=== PATIENT | female | born 1950 | race Caucasian/White ===

== ENCOUNTER → 2018-01-19 07:42 | Outpatient (CLI) | payer BC, MEDICARE, SELFPAY ==
[2018-01-19 13:03] LABS: Absolute Lymphocyte Count 1.35 X10^3/ul (0.83-4.51); Basophil# 0.01 X10^3/uL; Basophil% 0.3 % (0-1); Eosinophil# 0.07 X10^3/uL; Eosinophils% 1.9 % (0-5); Hematocrit 39.5 % (37-47); Hemoglobin 12.7 g/dl (12.0-15.0); Lymphocyte # 1.35 X10^3/ul (4.0); Lymphocyte % 37.3 % (19-41); Mean Corp Hgb Conc 32.2 g/gl (32-36); Mean Corpuscular Hgb 30.2 pg (27.0-32.0); Mean Corpuscular Volume 93.8 fL (81-99); Mean Platelet Vol. 8.8 fl (6.2-12.0); Monocyte# 0.21 X10^3/uL; Monocyte% 5.8 % (0-10); Neutrophil # 1.98 X10^3/uL (2.7-7.7); Neutrophil % 54.7 % (47-70); Platelet Count 212 K/mm3 (150-450); RBC Distribution Width CV 12.8 % (11.6-14.6); RBC Distribution Width SD 43.4 fl (35.1-43.9); Red Blood Count 4.21 M/mm3 (4.2-5.4); White Blood Count 3.6 K/mm3 (4.4-11.0)
--- NOTE | 2018-01-19 13:04 | CT_ITS ---
STUDY: CT SOFT TISSUE NECK WITH CONTRAST REASON FOR EXAM: Female, 67 years old. Neoplasm of the oropharynx. RADIATION DOSAGE (If Supplied By Facility): CTDIvol = ( 14.66 ) mGy, DLP = ( 902.39 ) mGycm TECHNIQUE: The patient was scanned in a multi-detector CT scanner. High resolution transaxial imaging was performed following intravenous administration of 100 ml of Isovue 300 contrast material. Sagittal and coronal images were reconstructed. Individualized dose optimization techniques were used for this CT. COMPARISON: Multiple previous studies including CT of the neck 11/26/2016 and 08/04/2017. Also PET scan 05/05/2017. FINDINGS: No significant change. Again seen is only a tiny 6 mm peripherally enhancing, nodule anterior to the right jugular vein, with low density center. No other evidence for mass or adenopathy. Currently normal bilateral parotid glands. Normal bilateral multi skilled operator spaces. Normal bilateral parapharyngeal spaces. Normal bilateral carotid spaces. Normal bilateral sublingual and submandibular glands and spaces. Normal visualized nasopharynx. Normal retropharyngeal space. Normal perivertebral space. Normal visualized bilateral faucial tonsils. The visualized tongue, tongue base and oropharynx are normal. The visualized cervical lymph nodes (levels I-) are within normal size limits, and maintain normal morphology. There is no demonstrated solid or cystic mass lesion. There is no abnormal contrast enhancement. Normal epiglottis, bilateral vallecula and hypopharynx. The pre-epiglottic and paraglottic adipose spaces are normal. Normal visualized bilateral piriform sinuses, aryepiglottic folds, vocal cords, and arytenoid-cricoid articulations. Normal subglottic trachea. Normal bilateral lobes of the thyroid gland. Normal visualized pulmonary apices. Normal visualized paranasal sinuses. Normal visualized cervical spine. CT/Soft Tissue Neck WITH Contrast IMPRESSION: No significant abnormality or change. Persistent 6 mm peripherally enhancing nodule with low density center anterior to the right jugular vein. Electronically Signed: Aly Hwang MD at 9:33 EDT , Service support ,
--- NOTE | 2018-01-19 13:05 | CT_ITS ---
STUDY: CT CHEST WITH CONTRAST REASON FOR EXAM: Female, 67 years old. 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 RADIATION DOSAGE (If Supplied By Facility): CTDIvol = ( 14.66 ) mGy, DLP = ( 902.39 ) mGycm TECHNIQUE: Transaxial imaging was performed following intravenous administration of 100 ml of Isovue 300 contrast material. Coronal and sagittal reformatted images were created. Individualized dose optimization techniques were used for this CT. COMPARISON: 08/04/2017 FINDINGS: This study is limited by streak artifact due to the patient's arms being at her sides. There is stable increased interstitial markings in the right apex which is likely due to post radiation fibrosis/scarring. There are no focal infiltrates or pleural effusions. There are no pulmonary nodules or masses. There is no pneumothorax. The heart and pericardium are within normal limits. There is no thoracic lymphadenopathy. There is no evidence of thoracic aortic aneurysm. Images through the upper abdomen demonstrate no significant abnormality. There are no destructive osseous lesions. There are stable degenerative changes in the spine. CT/Chest WITH Contrast IMPRESSION: Stable increased interstitial markings in the right apex which are likely due to post radiation fibrosis/scarring. Otherwise, clear lungs. No new or suspicious findings. Electronically Signed: Chet Paiz, at 16:18 EDT Tel , Service support ,
[2018-01-19 13:07] LABS: POSITIVE COUNT NO; POSITIVE DIFFERENTIAL NO; POSITIVE MORPHOLOGY NO
[2018-01-19 13:22] LABS: ALB/GLOB Ratio 1.2 RATIO (0.9-2.4); AST(SGOT) 27 U/L (15-37); Alanine Aminotransfer ALT/SGPT 39 U/L (13-56); Albumin, Serum 3.7 g/dL (3.2-5.0); Alkaline Phosphatase 85 U/L (45-117); Anion Gap 6 (5-15); BUN 13 mg/dL (7-18); BUN/Creat Ratio 14.3 RATIO (10-20); Calcium,Total 8.3 mg/dL (8.5-10.1); Chloride 104 mmol/L (98-107); Creatinine, Serum 0.91 mg/dL (0.55-1.02); EST Glomerular Filtration Rate 65 mL/min (>60); Est Glom Filt Rate - Afr Amer 79 mL/min (>60); Globulin 3.1 g/dL (2.2-4.2); Glucose 135 mg/dL (74-106); Potassium 4.1 mmol/L (3.5-5.1); Protein, Total 6.8 g/dL (6.4-8.2); Sodium Level 139 mmol/L (136-145); Thyroid Stim Hormone (TSH) 1.66 uIU/mL (0.358-3.74)
--- NOTE | 2018-08-04 13:55 | CT_ITS ---
STUDY: CT CHEST/THORAX WITH CONTRAST REASON FOR EXAM: Female, 68 years old. Spot on lung, history of oral cancer. RADIATION DOSAGE (If Supplied By Facility): CTDIvol = ( 16.04 ) mGy, DLP = ( 430.82 ) mGycm TECHNIQUE: Transaxial imaging was performed following intravenous administration of 100 ml of Isovue 300 contrast material. Multiplanar coronal and sagittal images were reformatted. Individualized dose optimization techniques were used for this CT. COMPARISON: CT chest/thorax January 19, 2018. FINDINGS: Minor subsegmental stranding/scarring in the anteromedial right apex is unchanged. No new pulmonary infiltrate or mass. There is no demonstrated pleural abnormality. Normal heart size and pericardium. There is mild eccentric calcification along the margin of the left ventricular outflow leading into the aortic valve. Normal mediastinum. Normal hilar regions. Normal enhanced pulmonary arteries. Normal aorta arch and descending thoracic aorta. There are multi-level degenerative changes of the thoracic spine. There is a 15 degree dextroscoliosis centered at T7. Well-corticated focal invaginations of the opposing T10-11 vertebral endplates consistent with benign Schmorl's node(s). There is no demonstrated abnormality of the visualized upper abdomen. CT/Chest WITH Contrast IMPRESSION: Stable minor subsegmental stranding/scarring in the anteromedial right lung apex. No new suspicious finding. Electronically Signed: Howard Montes MD at 17:37 EDT , Service support ,
--- NOTE | 2018-08-04 13:56 | CT_ITS ---
STUDY: CT SOFT TISSUE NECK WITH CONTRAST REASON FOR EXAM: Female, 68 years old. Oral cancer. RADIATION DOSAGE (If Supplied By Facility): CTDIvol = ( 14.85 ) mGy, DLP = ( 396.79 ) mGycm TECHNIQUE: The patient was scanned in a multi-detector CT scanner. High resolution transaxial imaging was performed following intravenous administration of 100 ml of Isovue 300 contrast material. Sagittal and coronal images were reconstructed. Individualized dose optimization techniques were used for this CT. COMPARISON: CT soft tissues of the neck January 19, 2018. FINDINGS: Normal bilateral parotid glands. Normal bilateral striker off spaces. Normal bilateral parapharyngeal spaces. Normal bilateral carotid spaces. Normal bilateral sublingual and submandibular glands and spaces. Normal visualized nasopharynx. Normal retropharyngeal space. Normal perivertebral space. Normal visualized bilateral faucial tonsils. The visualized tongue, tongue base and oropharynx are normal. The visualized cervical lymph nodes (levels I-) are within normal size limits, and maintain normal morphology. 5 mm rim-enhancing rounded lesion anterior to the right jugular vein (series 3 image 42, series 605 image 42) is unchanged. There is no abnormal contrast enhancement. Normal epiglottis, bilateral vallecula and hypopharynx. The pre-epiglottic and paraglottic adipose spaces are normal. Normal visualized bilateral piriform sinuses, aryepiglottic folds, vocal cords, and arytenoid-cricoid articulations. Normal subglottic trachea. Stable 3 mm rounded low density in the upper left lobe of the thyroid gland. There is stable subsegmental stranding/scarring in the anterior right upper lobe. Stable smoothly rounded 1.55 x 1.6 x 1.5 cm low density consistent with mucous inclusion cyst in the inferior left maxillary sinus. Mucoperiosteal thickening in the posterior right sphenoid sinus is mildly improved. There is stable multilevel degenerative changes of the cervical spine. CT/Soft Tissue Neck WITH Contrast IMPRESSION: Stable enhanced CT examination of the soft tissues of the neck since January 19, 2018, as noted. Electronically Signed: Howard Montes MD at 17:48 EDT , Service support ,
== END ==
PROVIDERS: Family Provider Family Medicine; PCP Family Medicine; Referring Provider Internal Medicine Medical Oncology; Visit Provider Internal Medicine Medical Oncology
DX: C10.9 Malignant neoplasm of oropharynx, unspecified (principal)
CPT/HCPCS: 36415; 70491; 71260; 80053; 84443; 85025; Q9967

== ENCOUNTER → 2018-03-12 12:26 | Outpatient (CLI) | payer BC, OTHER, MEDICARE, SELFPAY ==
--- NOTE | 2018-03-12 12:28 | BI_ITS ---
MAMMOGRAPHY - BILATERAL SCREENING REASON FOR EXAM: Female, 68 years old. Routine annual screening examination. PERTINENT HISTORY: Aunt with breast cancer. TECHNIQUE: Digital bilateral breast jerod (3D mammographic acquisition) in the CC and MLO projections. 2-D mediolateral oblique (MLO) and craniocaudad (CC) views of both breasts were obtained. CAD: Full Field Digital Mammography with Computer Added Detection was performed. COMPARISON: Comparison is made with prior study dated November 22, 2016 and June 20, 2014. FINDINGS: Breast Composition: The breasts are heterogeneously dense, which may obscure small masses. There are no dominant masses or suspicious calcifications. No other significant abnormalities are identified. There has been no significant change since the prior study. BI/SCREENING MAMM (CAD), BILAT IMPRESSION: Stable bilateral screening mammogram. Yearly follow-up mammogram recommended. (A) ASSESSMENT CATEGORY: BIRADS Category 1: Negative. A letter regarding these results will be sent to the patient by the facility within 30 days. Approximately 10% of breast cancers are not detected by mammography. A normal mammogram should not delay biopsy of a clinically suspicious abnormality. [id number] Electronically Signed: Paulino Wright MD at 13:52 EDT Tel [phone], Service support ,
== END ==
PROVIDERS: Family Provider Family Medicine; PCP Family Medicine; Visit Provider Obstetrics & Gynecology
DX: Z12.31 Encounter for screening mammogram for malignant neoplasm of breast (principal)
CPT/HCPCS: 77063; 77067

== ENCOUNTER → 2018-08-04 14:00 | Outpatient (CLI) | payer BC, MEDICARE, SELFPAY | PROVIDERS: Family Provider Family Medicine; PCP Family Medicine; Referring Provider Internal Medicine Medical Oncology; Visit Provider Internal Medicine Medical Oncology | DX: Z85.819 Personal history of malignant neoplasm of unspecified site of lip, oral cavity, and pharynx (principal) ==

== ENCOUNTER → 2019-02-16 14:34 | Outpatient (CLI) | payer BC, MEDICARE, SELFPAY ==
[2018-10-05 13:11] VITALS: BMI 25.4
[2019-02-01 12:59] VITALS: BMI 26.4
== END ==
PROVIDERS: Family Provider Family Medicine; PCP Family Medicine; Referring Provider Obstetrics & Gynecology; Visit Provider Obstetrics & Gynecology
DX: Z12.31 Encounter for screening mammogram for malignant neoplasm of breast (principal)

== ENCOUNTER → 2019-04-06 | Outpatient (CLI) | payer BC, MEDICARE, SELFPAY ==
[2019-02-01 12:59] VITALS: BMI 26.4
--- NOTE | 2019-04-06 12:30 | BI_ITS ---
MAMMOGRAPHY - BILATERAL SCREENING REASON FOR EXAM: Female, 69 years old. Routine annual screening examination. PERTINENT HISTORY: Aunt with breast cancer. TECHNIQUE: Digital bilateral breast wiliam (3D mammographic acquisition) in the CC and MLO projections. 2-D mediolateral oblique (MLO) and craniocaudad (CC) views of both breasts were obtained. CAD: Full Field Digital Mammography with Computer Added Detection was performed. COMPARISON: Comparison is made with prior study March 12, 2018 and November 30, 2016. FINDINGS: Breast Composition: The breasts are heterogeneously dense, which may obscure small masses. There are no dominant masses or suspicious calcifications. No other significant abnormalities are identified. There has been no significant change since the prior study. BI/SCREEN MAMM (CAD) W/WILIAM BILAT IMPRESSION: Stable bilateral screening mammogram. Yearly follow-up mammogram recommended. (A) ASSESSMENT CATEGORY: BIRADS Category 1: Negative. A letter regarding these results will be sent to the patient by the facility within 30 days. Approximately 10% of breast cancers are not detected by mammography. A normal mammogram should not delay biopsy of a clinically suspicious abnormality. [id number] Electronically Signed: Paulino Wright, at 14:10 EDT , Service support ,
== END | disposition home or self-care (01) ==
PROVIDERS: Family Provider Family Medicine; PCP Family Medicine; Referring Provider Obstetrics & Gynecology; Visit Provider Obstetrics & Gynecology
DX: Z12.31 Encounter for screening mammogram for malignant neoplasm of breast (principal)
CPT/HCPCS: 77063; 77067

== ENCOUNTER → 2019-08-26 14:44 | Outpatient (CLI) | payer BC, MEDICARE, SELFPAY ==
[2019-04-29 12:19] VITALS: BMI 26.4
--- NOTE | 2019-08-26 14:46 | CT_ITS ---
STUDY: CT SOFT TISSUE NECK WITH CONTRAST REASON FOR EXAM: Female, 69 years old. Follow-up oropharyngeal cancer. RADIATION DOSAGE (If Supplied By Facility): CTDIvol = ( 13.04 ) mGy, DLP = ( 886.34 ) mGycm TECHNIQUE: The patient was scanned in a multi-detector CT scanner. High resolution transaxial imaging was performed following intravenous administration of IV Isovue 370 100. Sagittal and coronal images were reconstructed. Individualized dose optimization techniques were used for this CT. COMPARISON: 08/04/2018. FINDINGS: Atrophy of the bilateral parotid glands glands, otherwise unremarkable bilateral parotid glands. Normal bilateral supervisor poultry hatchery spaces. Normal bilateral parapharyngeal spaces. Normal bilateral carotid spaces. Normal bilateral sublingual and submandibular glands and spaces. Normal visualized nasopharynx. Normal retropharyngeal space. Normal perivertebral space. Normal visualized bilateral faucial tonsils. The visualized tongue, tongue base and oropharynx are normal. The visualized cervical lymph nodes (levels I-) are within normal size limits, and maintain normal morphology. There is no demonstrated solid or cystic mass lesion. There is no abnormal contrast enhancement. Normal epiglottis, bilateral vallecula and hypopharynx. The pre-epiglottic and paraglottic adipose spaces are normal. There is mild fullness of the posterior aspect of the larynx, stable in the interval. Visualized bilateral piriform sinuses, aryepiglottic folds, vocal cords, and arytenoid-cricoid articulations. Normal subglottic trachea. Normal bilateral lobes of the thyroid gland. Normal visualized pulmonary apices. There is mucosal thickening versus mucus retention cyst of the left maxillary sinus. Remainder of the paranasal sinuses are clear. There are diffuse osteopenic changes with multilevel degenerative disease of the spine. There is minimal anterolisthesis of C7 on T1. This is stable. CT/Soft Tissue Neck WITH Contrast IMPRESSION: No distinct mass or lymphadenopathy seen on current exam, stable study in the interval. Electronically Signed: Olya Mohamud MD at 6:40 EDT , Service support ,
--- NOTE | 2019-08-26 14:46 | CT_ITS ---
STUDY: CT CHEST WITH CONTRAST REASON FOR EXAM: Female, 69 years old. History of oropharyngeal cancer, status post chemotherapy and radiation therapy. RADIATION DOSAGE (If Supplied By Facility): CTDIvol = ( 13.04 ) mGy, DLP = ( 886.34 ) mGycm TECHNIQUE: Transaxial imaging was performed following intravenous administration of IV Isovue 370 100. Individualized dose optimization techniques were used for this CT. COMPARISON: Previous study of August 04, 2018 FINDINGS: There is wispy fibrosis of the medial right upper lobe which may be secondary to post radiation change. There is no demonstrated pleural abnormality. Normal heart and pericardium. Normal mediastinum. Normal hilar regions. Normal enhanced pulmonary arteries. Normal aorta arch and descending thoracic aorta. There are diffuse degenerative changes of the visualized thoracolumbar spine. There is old severe compression deformity of T12 with retropulsion of a fracture fragment into the anterior spinal canal. This is new however from the prior study of August 04, 2018. There is a large hiatal hernia. This is also new in the interval. Status post cholecystectomy changes are noted. CT/Chest WITH Contrast IMPRESSION: 1. Wispy fibrosis of the medial right upper lobe which may be secondary to post radiation change. 2. There are diffuse degenerative changes of the visualized thoracolumbar spine. There is old severe compression deformity of T12 with retropulsion of a fracture fragment into the anterior spinal canal. This was not present however on the prior study of August 04, 2018. 3. Large hiatal hernia. This is also new in the interval. Electronically Signed: Adonay Schwartz MD at 17:06 EDT , Service support ,
[2019-08-26 15:01] LABS: CREATININE FINGERSTICK 0.9 mg/dL (0.55-1.02); EGFR FINGERSTICK > 60.0000 mL/min (>60)
== END ==
PROVIDERS: Family Provider Family Medicine; PCP Family Medicine; Referring Provider Internal Medicine Medical Oncology; Visit Provider Internal Medicine Medical Oncology
DX: C10.9 Malignant neoplasm of oropharynx, unspecified (principal)
CPT/HCPCS: 70491; 71260; Q9967

== ENCOUNTER → 2019-09-06 12:26 | Outpatient (CLI) | payer BC, MEDICARE, SELFPAY ==
[2019-08-30 14:36] VITALS: BMI 25.1
--- NOTE | 2019-09-06 12:28 | MRI_ITS ---
STUDY: MRI LUMBAR SPINE WITH AND WITHOUT CONTRAST REASON FOR EXAM: Female, 69 years old. Fracture T12 TECHNIQUE: Standardized fat and water weighted pulse sequences were obtained in the sagittal and axial planes. IV Dotarem 13 was administered for the contrast portion of the examination. COMPARISON: May 21, 2010. Lumbar spine FINDINGS: 25% Compression fracture T12 without retropulsion. There is T2 lengthening along the superior endplate. T12-L1: Normal endplates. Normal disc height, hydration and morphology. Normal bilateral facet joints. Normal central canal and bilateral lateral recesses. Normal bilateral intervertebral neural foramina. Normal lumbar lordosis. Moderate levoconvex scoliosis. Normal conus medullaris that terminates at the L1 level. L1-2: Normal endplates. Circumferential disc marginal osteophyte. Decreased disc height, hydration and morphology. Normal bilateral facet joints. Normal central canal and bilateral lateral recesses. Normal bilateral intervertebral neural foramina. L2-3: Normal endplates. Circumferential disc marginal osteophyte. Decreased disc height, hydration and morphology. Normal bilateral facet joints. Normal central canal and bilateral lateral recesses. Narrowed bilateral intervertebral neural foramina. L3-4: Normal endplates. Normal disc height, hydration and morphology. Normal bilateral facet joints. Normal central canal and bilateral lateral recesses. Narrowed bilateral intervertebral neural foramina. L4-5: Hypertrophic facet disease. Moderate central and lateral trefoil type spinal stenosis. L5-S1: Normal endplates. Normal disc height, hydration and morphology. Hypertrophic bilateral facet joints. Normal central canal and bilateral lateral recesses. Normal bilateral intervertebral neural foramina. Normal visualized sacral ala. Normal visualized paraspinous soft tissue structures. IMPRESSION: Mild compression fracture superior endplate T12 with bone marrow edema. Scoliosis. Multilevel spinal stenosis as noted above. Electronically Signed: Jeffy Carney MD at 17:20 EST , Service support , MRI/Spine Lumbar W/WO Contrast
--- NOTE | 2019-09-06 12:28 | MRI_ITS ---
STUDY: MRI THORACIC SPINE WITH AND WITHOUT CONTRAST REASON FOR EXAM: Female, 69 years old. Compression T12. History of cancer of the tonsil. TECHNIQUE: IV Dotarem 13 was administered for the contrast portion of the examination. COMPARISON: None. FINDINGS: Normal kyphosis of the thoracic spine. Moderate scoliosis. T1-2, T2-3, T3-4, T4-5, T5-6, T6-7, T7-8, T8-9, T9-10, T10-11, T11-12: Normal endplates. Normal disc hydration, heights and morphology of the corresponding intervertebral discs. Normal central canal and intervertebral neural foramina at the corresponding levels. Mild 20% compression fracture superior endplate T12 with slight retropulsion. Mild bone marrow edema along the superior endplate. Moderate central and lateral trefoil type spinal stenosis at this level. Nerve sheath cyst on the left at T10. Normal visualized thoracic cord. Normal conus medullaris that terminates at the L1.. The soft tissue structures are unremarkable. There is no enhancing abnormality. MRI/Spine Thoracic W/WO Contrast IMPRESSION: Mild acute or subacute compression fracture superior endplate T12 with retropulsion and moderate spinal stenosis. Moderate scoliosis. Electronically Signed: Jeffy Carney MD at 17:34 EST , Service support ,
== END ==
PROVIDERS: Family Provider Family Medicine; PCP Family Medicine; Referring Provider Internal Medicine Medical Oncology; Visit Provider Internal Medicine Medical Oncology
DX: S22.080A Wedge compression fracture of T11-T12 vertebra, initial encounter for closed fracture (principal); C09.0 Malignant neoplasm of tonsillar fossa; M54.6 Pain in thoracic spine; M54.9 Dorsalgia, unspecified; M54.2 Cervicalgia; G89.29 Other chronic pain
CPT/HCPCS: 72157; 72158

== ENCOUNTER → 2019-09-08 12:40 | Outpatient (CLI) | payer BC, MEDICARE, SELFPAY ==
[2019-08-30 14:36] VITALS: BMI 25.1
--- NOTE | 2019-09-08 12:59 | RAD_ITS ---
STUDY: X-RAY - LUMBAR SPINE REASON FOR EXAM: Female, 69 years old. Low back pain TECHNIQUE: 2 view(s) of the lumbar spine were obtained. COMPARISON: Prior study of 04/15/2016 FINDINGS: Normal lumbar lordosis. There is a moderately severe thoracolumbar levoscoliosis with rotatory component there is minimal grade 1 anterolisthesis of L4 relative to L5. There is generalized demineralization of the vertebral bodies. There is multi-level degenerative disc disease with multi-level disc space narrowing. The soft tissue structures are unremarkable. RAD/Lumbar Spine 2 or 3 Views IMPRESSION: Moderately severe thoracolumbar levoscoliosis with rotatory component. Minimal grade 1 anterolisthesis of L4 relative to L5. Generalized osteopenia. Findings are similar to the previous study. Electronically Signed: Adonay Schwartz MD at 19:15 EST , Service support ,
== END ==
PROVIDERS: Family Provider Family Medicine; PCP Family Medicine; Referring Provider Anesthesiology Pain Medicine; Visit Provider Anesthesiology Pain Medicine
DX: M54.9 Dorsalgia, unspecified (principal)
CPT/HCPCS: 72100

== ENCOUNTER → 2019-09-09 10:23 | Outpatient (CLI) | payer BC, MEDICARE, SELFPAY ==
[2019-08-30 14:36] VITALS: BMI 25.1
--- NOTE | 2019-09-09 10:25 | NM_ITS ---
CLINICAL: 69-year-old female with history of head and neck carcinoma with current complaint of low back discomfort was radiographically depicted 12th thoracic vertebral compression fracture. WHOLE BODY 99m Tc MDP RADIONUCLIDE BONE SCINTIGRAPHY COMPARISON: MRI of the thoracic and lumbar spine reports 09/06/2019, plain film radiograph report lumbar spine 09/08/2019 FINDINGS: Following the intravenous administration of 27.5 mCi of 99m Tc MDP, whole body bone images reveal: 1. Relatively intense increased radiopharmaceutical concentration is demonstrated in the 12th thoracic vertebra diffusely. 2. Increased tracer concentration is defined in the sternoclavicular compartment of the right shoulder, acromioclavicular compartments of both shoulders, first-third and fifth lumbar vertebra, left elbow, bilateral wrist articulations, the left knee, right ankle, right forefoot. 3. The remaining skeletal structures are scintigraphically unremarkable with normal-appearing renal images and urinary bladder activity identified. Unenhanced uptake is noted in the bilateral mandible and maxilla, inter-orbital of the skull commensurate with periostitis. Facilitated tracer concentration is noted in the femoral components of the presumably asymptomatic bilateral hip arthroplasties most consistent with normal postsurgical change. NM/Bone Scan Whole Body IMPRESSION: 1. The increased radiopharmaceutical concentration identified in the 12th thoracic vertebra consistent with trauma-compression fracture. In patients > 65 years of age, increased radiopharmaceutical concentration on bone scintigraphy in uncomplicated documented fracture, may take > 18 months for complete resolution. (Aurelio et al, Seminars of Nuclear Medicine, 13:104, 1983). 2. Degenerative arthritis appears expressed in the lumbar spine, left elbow, both shoulder and wrist articulations, the left knee, right ankle and right forefoot. Plain film radiography may be of benefit in further evaluation of the sternoclavicular compartment of the right shoulder secondary to the intensity of uptake. 3. There is no definitive scintigraphic evidence of diffuse axial skeletal metastatic disease on the current examination. Electronically Signed: Maximiliano Mullins DO at 10:13 EST Tel , Service support ,
== END ==
PROVIDERS: Family Provider Family Medicine; PCP Family Medicine; Referring Provider Internal Medicine Medical Oncology; Visit Provider Internal Medicine Medical Oncology
DX: C09.0 Malignant neoplasm of tonsillar fossa (principal); S22.080A Wedge compression fracture of T11-T12 vertebra, initial encounter for closed fracture
CPT/HCPCS: 78306

== ENCOUNTER → 2019-10-07 08:45 | Outpatient (CLI) | payer BC, MEDICARE, SELFPAY ==
[2019-09-15 10:53] VITALS: BMI 25.3
--- NOTE | 2019-10-07 18:41 | BON_PTH ---
PATIENT: MALVIN SIMON LOC: [facility] U#:[id number] AGE/SX: 75/F ROOM: RE10/07/[address]: Dr. Dae Pang MD : 1950 BED: DIS: SPEC #: [id number] RECD: 10/07/19 19:26 STATUS: CHAR ASHIA #: [id number] EVA: 10/07/19 18:[address]: Dae Pang DEPT: SURGICAL PATHOLOGY RECD BY: Eddie Farley ENTERED: 10/08/19 09:42 SP TYPE: Bone OTHR DR: Dr. Nikki Birch DO Tissues: Vertebra, NOS Procedures: Decalcification bone/plaque Surgery Specimen Level IV HEADER OPERATION: Kyphoplasty, T12 with biopsy PRE-OP DIAGNOSIS: Compression fracture, tumor tonsillar TISSUE SUBMITTED: T12 vertebral MICROSCOPIC DIAGNOSIS T12 vertebral body, kyphoplasty: A piece of blood clot, negative for malignancy. See Comment. SJ:shirley 10/11/19 COMMENT The specimen also shows hematopoietic marrow with trilineage hematopoiesis. MICROSCOPIC DESCRIPTION Slides are reviewed. GROSS DESCRIPTION Received in fixative is one container labeled with the patient's name and designated T12 vertebral body. The specimen consists of reddish-carrera material aggregating to 1 x 0.2 x less than 0.1 cm. The specimen is submitted in its entirety in one cassette. No distinct bony tissue is identified. AM:shirley 10/08/19 TC: 5 CPT: 06823
== END ==
PROVIDERS: Family Provider Family Medicine; PCP Family Medicine; Referring Provider Anesthesiology Pain Medicine; Visit Provider Anesthesiology Pain Medicine
DX: S22.089A Unspecified fracture of T11-T12 vertebra, initial encounter for closed fracture (principal)
CPT/HCPCS: 88305; 88311

== ENCOUNTER → 2019-12-05 | Outpatient (CLI) | payer BC, MEDICARE, SELFPAY ==
[2019-12-05 13:38] VITALS: BMI 25.3
[2019-12-05 14:12] LABS: Mucous, Urine 0 SEEN /hpf (<or=2+); Squamous Epithelial Cells - UA 0 SEEN /hpf (5-10)
[2019-12-05 14:23] LABS: Color, Urine Yellow (Yellow); Glucose, Dipstick Normal (Normal); Ketone-Dipstick Negative (Negative); Leukocyte Esterase-Dipstick 500 /ul (Negative); Nitrite-Dipstick Negative (Negative); Occult Blood-Urine 150 /ul (Negative); Protein-Dipstick 100 mg/dl (Negative); Specific Gravity, Urine 1.015 (1.002-1.030); Urine Bilirubin Dipstick Negative (Negative); Urine Clarity Cloudy (Clear); Urine Urobilinogen 1 mg/dl (Normal)
[2019-12-05 14:36] LABS: Bacteria 2+ /hpf (None Seen); Red Blood Cells-Urine 5-10 SEEN /hpf (0-5); White Blood Cells >100 SEEN /hpf (0-5)
== END | disposition home or self-care (01) ==
PROVIDERS: PCP Family Medicine; Referring Provider Physician Assistant Medical; Visit Provider Physician Assistant Medical
DX: R30.0 Dysuria (principal)
CPT/HCPCS: 81001; 87077; 87086; 87088; 87186

== ENCOUNTER → 2020-01-02 | Outpatient (CLI) | payer BC, MEDICARE, SELFPAY ==
[2020-01-02 10:43] VITALS: BMI 25.3
[2020-01-03 12:19] LABS: Mucous, Urine 0 SEEN /hpf (<or=2+); Red Blood Cells-Urine 0 SEEN /hpf (0-5)
[2020-01-03 12:57] LABS: Color, Urine Yellow (Yellow); Glucose, Dipstick Normal (Normal); Ketone-Dipstick Negative (Negative); Leukocyte Esterase-Dipstick 25 /ul (Negative); Nitrite-Dipstick Positive (Negative); Occult Blood-Urine Negative /ul (Negative); Protein-Dipstick Negative (Negative); Urine Clarity Sl. Cloudy (Clear); Urine Urobilinogen 4 mg/dl (Normal)
[2020-01-03 13:03] LABS: Urine Bilirubin Dipstick 1 mg/dL (Negative)
[2020-01-03 13:13] LABS: Bacteria RARE /hpf (None Seen); Hyaline Cast 0-5 SEEN /lpf (0-5); Squamous Epithelial Cells - UA 0-5 SEEN /hpf (5-10); White Blood Cells 0-5 SEEN /hpf (0-5)
== END | disposition home or self-care (01) ==
LOC: LABSPEC 01-03 11:41
PROVIDERS: PCP Family Medicine; Referring Provider Physician Assistant Medical; Visit Provider Physician Assistant Medical
DX: M54.5 Low back pain (principal)
CPT/HCPCS: 81001; 87086

== ENCOUNTER → 2020-10-24 | Outpatient (CLI) | payer BC, MEDICARE, SELFPAY ==
[2020-10-24 14:44] VITALS: BMI 27.3
== END | disposition home or self-care (01) ==
LOC: LABSPEC 18:04
PROVIDERS: PCP Family Medicine; Visit Provider Physician Assistant Surgical
DX: U07.1 COVID-19 (principal)
CPT/HCPCS: 87635; U0003

== ENCOUNTER → 2021-03-26 13:27 | Outpatient (CLI) | payer BC, MEDICARE, SELFPAY ==
[2021-03-07 12:34] VITALS: BMI 27.3
--- NOTE | 2021-03-26 13:30 | BI_ITS ---
MAMMOGRAPHY - BILATERAL SCREENING REASON FOR EXAM: Female, 71 years old. Routine annual screening examination. PERTINENT HISTORY: Aunt with breast cancer. TECHNIQUE: Digital bilateral breast wiliam (3D mammographic acquisition) in the CC and MLO projections. 2-D mediolateral oblique (MLO) and craniocaudad (CC) views of both breasts were obtained. CAD: Full Field Digital Mammography with Computer Added Detection was performed. COMPARISON: Comparison is made with prior study dated 04/06/2019 and 03/12/2018. FINDINGS: Breast Composition: The breasts are heterogeneously dense, which may obscure small masses. There are no dominant masses or suspicious calcifications. No other significant abnormalities are identified. There has been no significant change since the prior study. BI/SCRN MAMM (CAD)W/WILIAM BILAT IMPRESSION: Stable bilateral screening mammogram. Yearly follow-up mammogram recommended. (A) ASSESSMENT CATEGORY: BIRADS Category 1: Negative. A letter regarding these results will be sent to the patient by the facility within 30 days. Approximately 10% of breast cancers are not detected by mammography. A normal mammogram should not delay biopsy of a clinically suspicious abnormality. [id number] Electronically Signed: Paulino Wright MD at 14:15 EDT , Service support ,
== END ==
PROVIDERS: PCP Family Medicine; Referring Provider Internal Medicine Medical Oncology; Visit Provider Internal Medicine Medical Oncology
DX: Z12.31 Encounter for screening mammogram for malignant neoplasm of breast (principal)
CPT/HCPCS: 77063; 77067

== ENCOUNTER → 2021-08-16 15:34 | Outpatient (CLI) | payer BC, MEDICARE, SELFPAY ==
--- NOTE | 2021-08-16 15:44 | BD_ITS ---
STUDY: DUAL ENERGY X-RAY ABSORPTIOMETRY / DXA REASON FOR EXAM: Female, 71 years old. 627.8Menopausal postmenopausalBONE DENSITY REASON FOR EXAM TECHNIQUE: Bone Mineral Density (BMD) measurements of lumbar spine and left forearm were obtained. The patient is status post bilateral hip replacements. COMPARISON: None. FINDINGS: Lumbar Spine (L1-L4): g/cm2 (0.909) / T-score (-1.3) / Z-score (1.0) Findings are suggestive of osteopenia with a low fracture risk. Left Forearm: g/cm2 (0.444) / T-score (-2.5) / Z-score (-0.2) BD/Dexa Bone Density Study IMPRESSION: The patient is considered osteopenic as outlined below according to World Yevgeniy Organization (WHO) criteria with a high fracture risk. Reference Information: The T-score is the number of standard deviations above or below the standard which is normal for young adults at their peak bone mineral density. The World Health Organization (WHO) interprets the T-scores as follows: Above -1 Normal bone density Between -1 and -2.5 Osteopenia Equal to / or below -2.5 Osteoporosis As a practical clinical guideline, osteopenia may be graded as follows: Mild -1 through -1.5 Moderate -1.6 through -2.0 Severe -2.1 through -2.4 The Z-score is the number of standard deviations above or below age-matched controls. A Z-score of less than -1.5 would be considered abnormal. References: 1. NIH Osteoporosis and Related Bone Diseases www osteo.org 2. International Society for Clinical Densitometry www iscd.org 3. National Osteoporosis Foundation www nof.org Electronically Signed: Paulino Wright MD at 9:54 EDT , Service support ,
== END ==
PROVIDERS: PCP Family Medicine; Referring Provider Nurse Practitioner Family; Visit Provider Nurse Practitioner Family
DX: Z78.0 Asymptomatic menopausal state (principal)
CPT/HCPCS: 77080

== ENCOUNTER 2021-12-30 15:03 | Outpatient (CLI) | payer BC, MEDICARE, SELFPAY ==
[2021-12-30 15:06] LABS: Bacteria 0 SEEN /hpf (None Seen); Mucous, Urine 0 SEEN /hpf (<or=2+)
[2021-12-30 15:20] LABS: Color, Urine Yellow (Yellow); Glucose, Dipstick Normal (Normal); Ketone-Dipstick Negative (Negative); Leukocyte Esterase-Dipstick 500 /ul (Negative); Nitrite-Dipstick Negative (Negative); Occult Blood-Urine 10 /ul (Negative); Protein-Dipstick 30 mg/dl (Negative); Specific Gravity, Urine 1.015 (1.002-1.030); Urine Bilirubin Dipstick Negative (Negative); Urine Clarity Cloudy (Clear); Urine Urobilinogen Normal (Normal)
[2021-12-30 15:40] LABS: White Blood Cells >100 SEEN /hpf (0-5)
[2021-12-30 15:41] LABS: Red Blood Cells-Urine 0-5 SEEN /hpf (0-5); Renal Epithelial Cells 0-5 SEEN /hpf (0-5); Squamous Epithelial Cells - UA 0-5 SEEN /hpf (5-10); Transitional Epithelial - Ur 0-5 SEEN /hpf (0-5)
== END 2021-12-30 23:59 | disposition home or self-care (01) ==
PROVIDERS: PCP Family Medicine; Visit Provider Physician Assistant
DX: N39.0 Urinary tract infection, site not specified (principal)
CPT/HCPCS: 81001; 87077; 87086; 87088; 87186

== ENCOUNTER → 2022-04-19 | Outpatient (CLI) | payer MEDICARE, SELFPAY ==
--- NOTE | 2022-04-19 11:02 | ART_ITS ---
Reason For Study: PVD Procedure A bilateral lower extremity continuous wave Doppler with analog waveform analysis,segmental pressures,and ankle brachial indexes with exercise. Pt walked on treadmill for 2 minutes at 1.5 MPH and a 5% grade. No complaints of pain, stopped due to tieredness. Left Segmental Pressures Left brachial= 124mmHg. Left posterior tibial artery = 138mmHg. Left dorsalis pedis artery = 130mmHg. Left digit = 99 mmHg. The left dorsalis pedis waveforms are triphasic. The left posterior tibial artery waveforms are triphasic. Right Segmental Pressures Right brachial= 125mmHg. Right posterior tibial artery = 149mmHg. Right dorsalis pedis artery = 134mmHg. Right digit = 78 mmHg. The right dorsalis pedis waveforms are triphasic. The right posterior tibial artery waveforms are triphasic. Indices The right ankle brachial index by the dorsalis pedis is 1.07. The right ankle brachial index by the posterior tibial artery is 1.19. The right digital-brachial index is 0.62. The right post exercise ankle brachial index is 1.25. The left ankle brachial index by the dorsalis pedis is 1.04. The left ankle brachial index by the posterior tibial artery is 1.10. The left digital-brachial index is 0.79. The left post exercise ankle brachial index is 1.19. VL/Lower Ext Art Exam w/ Exercise Interpretation Summary Triphasic Doppler waveforms are noted at ankle level bilaterally. Pulse-volume recordings appear slightly diminished at digital level bilaterally, but satisfactory at all other levels bilaterally. Resting ankle-brachial indices are normal bilaterally. The right digital-brachi al index is mildly diminished. The left digital-brachial index is normal. Following a period of ex ercise, ankle pressures augmented bilaterally, a normal physiological response. Arterial flow appears normal at ankle level bilaterally, and at digital level o n the left. There is evidence of mild arterial occlusive disease at digital level on the right. Ordering Physician: Cruzito Diaz Referring Physician: Nikki Birch Performed By: Beena Phillips RVT
== END | disposition home or self-care (01) ==
PROVIDERS: PCP Family Medicine; Referring Provider Podiatrist; Visit Provider Podiatrist
DX: I73.9 Peripheral vascular disease, unspecified (principal)
CPT/HCPCS: 93924

== ENCOUNTER → 2022-06-08 | Outpatient (CLI) | payer MEDICARE, SELFPAY ==
--- NOTE | 2022-06-08 11:20 | US_ITS ---
STUDY: RENAL ULTRASOUND - COMPLETE REASON FOR EXAM: Female, 72 years old. UTI TECHNIQUE: Ultrasound evaluation of the kidneys was performed with real-time and static ruffin-scale imaging. COMPARISON: None. FINDINGS: RIGHT KIDNEY: Normal location of the right kidney, which is normal in size. The right kidney measures 9.3 x 5.4 cm. There is a normal cortex of the right kidney. The renal cortex measures 1.2 cm. There is no right renal mass or cyst. There are no right renal calculi. There is no right hydronephrosis. DISTAL RIGHT URETER: There is non-visualization of the distal right ureter. There is no demonstrated right ureterovesical junction calculus. There is a visualized right ureteral jet. LEFT KIDNEY: Normal location of the left kidney, which is normal in size. The left kidney measures 8.8 x 4.3 cm. There is a normal cortex of the left kidney. The renal cortex measures 1.5 cm. There is no left renal mass or cyst. There are no left renal calculi. There is an extra-renal pelvis of the left kidney. There is no distention of the renal calyces. DISTAL LEFT URETER: There is non-visualization of the distal left ureter. There is no demonstrated left ureterovesical junction calculus. There is a visualized left ureteral jet. AORTA: There is obscuration of the abdominal aorta by overlying bowel gas I.V.C.: The IVC is obscured. BLADDER: The distended urinary bladder has a volume of 147 ml. There is a normal wall thickness of the distended urinary bladder. There is no demonstrated mass within the urinary bladder. There are no demonstrated bladder calculi. US/Kidney and Bladder IMPRESSION: There are no acute findings. Electronically Signed: Alexandr Kowalski MD at 15:06 EDT ,
== END | disposition home or self-care (01) ==
LOC: US 11:17
PROVIDERS: PCP Family Medicine; Visit Provider Urology
DX: N39.0 Urinary tract infection, site not specified (principal)
CPT/HCPCS: 76770

== ENCOUNTER → 2023-05-05 | Outpatient (CLI) | payer MEDICARE, SELFPAY ==
--- NOTE | 2023-05-05 14:50 | BI_ITS ---
MAMMOGRAPHY - BILATERAL SCREENING REASON FOR EXAM: Female, 73 years old. Routine annual screening examination. PERTINENT HISTORY: Aunt with breast cancer. TECHNIQUE: Digital bilateral breast wiliam (3D mammographic acquisition) in the CC and MLO projections. 2-D mediolateral oblique (MLO) and craniocaudad (CC) views of both breasts were obtained. CAD: Full Field Digital Mammography with Computer Added Detection was performed. COMPARISON: Comparison is made with prior study dated March 26, 2021 and April 06, 2019. FINDINGS: Breast Composition: The breasts are heterogeneously dense, which may obscure small masses. There are no dominant masses or suspicious calcifications. There is a 6.4 mm well-defined nodule in the anterior upper lateral aspect of the right breast. There is suggestion of a fatty hilum suggestive of a small lymph node. Correlation with ultrasound is recommended. No other significant abnormalities are identified. BI/SCRN MAMM (CAD)W/WILIAM BILAT IMPRESSION: 6.4 mm well-defined nodule in the anterior upper lateral aspect of the right breast as described. Correlation with ultrasound is recommended. ASSESSMENT CATEGORY: BIRADS Category 0: Incomplete. Need additional imaging evaluation. A letter regarding these results will be sent to the patient by the facility within 30 days. Approximately 10% of breast cancers are not detected by mammography. A normal mammogram should not delay biopsy of a clinically suspicious abnormality. [id number] Electronically Signed: Paulino Wright MD at 8:15 EDT ,
== END | disposition home or self-care (01) ==
LOC: OPBI 14:49
PROVIDERS: PCP Family Medicine; Referring Provider Internal Medicine Medical Oncology; Visit Provider Internal Medicine Medical Oncology
DX: Z12.31 Encounter for screening mammogram for malignant neoplasm of breast (principal); Z80.3 Family history of malignant neoplasm of breast
CPT/HCPCS: 77063; 77067

== ENCOUNTER → 2023-05-09 | Outpatient (CLI) | payer MEDICARE, SELFPAY ==
--- NOTE | 2023-05-09 11:08 | US_ITS ---
STUDY: ULTRASOUND BREAST - RIGHT REASON FOR EXAM: Female, 73 years old. Abnormal screening mammogram. TECHNIQUE: Axial and longitudinal images of the RIGHT breast were performed with a high resolution ultrasound transducer. # OF IMAGES: 18 COMPARISON: Comparison is made with prior mammogram dated May 05, 2023. FINDINGS: RIGHT Breast: The mammographic abnormality corresponds to a 7 mm x 6 mm x 7 mm irregular hypoechoic solid nodule at the 11:00 position of the breast at 3 cm from the nipple. Biopsy is recommended. US/Breast Limited Unilateral IMPRESSION: 7 mm x 6 mm a 7 mm irregular hypoechoic solid nodule at the 11:00 position of the breast at 3 cm from the nipple. Biopsy recommended. ASSESSMENT CATEGORY: BIRADS Category 4: Suspicious - Biopsy Should Be Considered. A letter regarding these results will be sent to the patient by the facility within 30 days. Electronically Signed: Paulino Wright MD at 12:23 EDT ,
== END | disposition home or self-care (01) ==
LOC: OPUS 11:05
PROVIDERS: PCP Family Medicine; Referring Provider Internal Medicine Medical Oncology; Visit Provider Internal Medicine Medical Oncology
DX: R92.8 Other abnormal and inconclusive findings on diagnostic imaging of breast (principal)
CPT/HCPCS: 76642

== ENCOUNTER → 2023-05-22 | Outpatient (CLI) | payer MEDICARE, SELFPAY ==
--- NOTE | 2023-05-22 07:53 | US_ITS ---
ULTRASOUND GUIDED CORE BIOPSY REASON FOR EXAM: Female, 73 years old. Right breast mass PERTINENT HISTORY: Right breast mass. COMPARISON: Comparison is made with prior sonogram of the right breast dated May 09, 2023. TECHNIQUE: (All elements of maximal sterile barrier technique followed, including US elements as applicable) Under direct sonographic guidance, these surgeon performed 3 core biopsies of the 7 mm x 7 mm x 4 mm irregular hypoechoic solid nodule at the 11:00 position of the breast at 3 cm from the nipple. US/US Breast Biopsy 1st Lesion IMPRESSION: Ultrasound guided core biopsy of a mass in the RIGHT breast at 11:00 position of the breast at 3 cm from the nipple without complication. Electronically Signed: Paulino Wright MD at 8:44 EDT ,
--- NOTE | 2023-05-22 08:30 | BRBX_PTH ---
PATIENT: MALVIN SIMON LOC: [facility]#:[id number] AGE/SX: 73/F ROOM: RE05/22/[address]: Dr. Yolanda Guido MD : [id number] BED: DIS: 05/22/2023 SPEC #: [id number] RECD: 05/22/23 09:25 STATUS: CHAR ASHIA #: [id number] EVA: 05/22/23 08:[address]: Yolanda Guido DEPT: SURGICAL PATHOLOGY RECD BY: Anu Sanches ENTERED: 05/22/23 11:55 SP TYPE: BREAST BX OTHR DR: Dr. Nikki Birch DO Tissues: Right breast, NOS Procedures: Surgery Specimen Level IV HEADER OPERATION: Ultrasound-guided right breast biopsy PRE-OP DIAGNOSIS: Right breast mass TISSUE SUBMITTED: Right breast mass 11 o'clock, 3.0 cm from nipple ISCHEMIC TIME: 30 seconds FIXATION TIME: 11 hours MICROSCOPIC DIAGNOSIS Right breast mass, 11 o'clock, 3.0 cm from nipple, ultrasound-guided core biopsy: Fragments of benign breast tissue with extensive dense fibrosis and lobular involution. Negative for atypia or malignancy. Focal microcalcifications. See comment. DANA:yoselin 05/23/2023 COMMENT Correlation with clinical, radiologic findings and appropriate follow up are necessary. MICROSCOPIC DESCRIPTION Slides are reviewed. GROSS DESCRIPTION Received in fixative is one container labeled with the patient's name and designated right breast 11 o'clock, 3.0 cm from nipple. The specimen consists of multiple elongated fragments of carrera-yellow fibroadipose tissue that in aggregate measure 1.5 x 1.0 x 0.1 cm. The entire specimen is submitted in one cassette. / DANA:yoselin 05/22/2023 TC:5 CPT: 91296
--- NOTE | 2023-05-22 09:03 | PCM.OPRPT ---
Report of Operation Date of Procedure: 05/22/23 Pre-Operative Diagnosis: Right breast mass Post-Operative Diagnosis: Same Surgery/Procedure Performed:: Right breast ultrasound-guided biopsy Surgeon: Yolanda Guido Type of Anesthesia: Local Specimen's removed: Right breast mass 11:00 3 cm from the nipple Estimated Blood Loss (mL): minimal Description of Procedure: Procedure: Right ultrasound-guided core biopsy Indications: 73 year-old female with hypoechoic cystic nodule at 11:00 in the right breast 3 cm from the nipple. Risk benefits were discussed the patient and she elected to proceed with ultrasound guided core biopsy with clip placement Description of procedure: Patient was brought into the ultrasound room in the right breast was marked. A timeout was completed verifying correct patient, procedure, site, specially, prior to beginning procedure. The right breast was prepped and draped in usual sterile fashion and using local anesthesia was obtained with 1% lidocaine with epi. The lesion was located with the ultrasound. Small incision was made with 11 blade to introduced the mammotome through the skin. Under ultrasound guidance multiple core samples were obtained using then 13-gauge mammotome and sent in formalin for pathology. The mammotome mammostar clip was then deployed into the biopsy cavity under ultrasound guidance and a picture was taken. Upon completion procedure hemostasis was obtained and a Steri-Strip and OpSite were placed. Patient was then taken to the mammography suite for clip verification. The clip was verified. The patient tolerated the procedure well and was discharged from the breast imaging department good condition. Complications none
== END | disposition home or self-care (01) ==
PROVIDERS: PCP Family Medicine; Referring Provider Surgery; Visit Provider Surgery
DX: R92.8 Other abnormal and inconclusive findings on diagnostic imaging of breast (principal); N63.10 Unspecified lump in the right breast, unspecified quadrant
CPT/HCPCS: 19083; 88305

== ENCOUNTER 2023-09-08 11:00 | Outpatient (CLI) | payer MEDICARE, SELFPAY ==
--- NOTE | 2023-09-08 11:03 | US_ITS ---
STUDY: ULTRASOUND BREAST - RIGHT REASON FOR EXAM: Female, 73 years old. Follow-up for right breast biopsy. TECHNIQUE: Axial and longitudinal images of the RIGHT breast were performed with a high resolution ultrasound transducer. # OF IMAGES: 16 COMPARISON: Comparison is made with prior ultrasound of the right breast dated May 09, 2023. FINDINGS: RIGHT Breast: This is a 7 mm x 5 mm x 3 mm well-defined hypoechoic nodule at the 11:00 position of the breast at 3 cm from the nipple. This is unchanged. US/Breast Limited Unilateral IMPRESSION: Stable examination. ASSESSMENT CATEGORY: BIRADS Category 2: Benign. A letter regarding these results will be sent to the patient by the facility within 30 days. Electronically Signed: Paulino Wright MD at 15:21 EST ,
== END 2023-09-08 23:59 | disposition home or self-care (01) ==
LOC: OPUS 11:01
PROVIDERS: PCP Family Medicine; Referring Provider Surgery; Visit Provider Surgery
DX: N63.10 Unspecified lump in the right breast, unspecified quadrant (principal); Z85.819 Personal history of malignant neoplasm of unspecified site of lip, oral cavity, and pharynx; Z78.0 Asymptomatic menopausal state; R92.8 Other abnormal and inconclusive findings on diagnostic imaging of breast
CPT/HCPCS: 76642

== ENCOUNTER 2024-01-21 10:57 | Day surgery (SDC) | payer MEDICARE, SELFPAY ==
[2024-01-21] VITALS (13 sets, daily range): BP systolic 118–147; BP diastolic 61–80; PULSE 80–88; RESP 16–18; TEMP 36.8–37.1; O2SAT 92–100; BMI 28.4
[2024-01-21] MEDS: Lactated Ringers 1,000 ML 15 ML IV (11:26)
--- NOTE | 2024-01-21 12:51 | DCINST_ITS ---
Discharge Instructions Diet Discharge Diet: No restrictions Activity Discharge Activity: Return to Normal Activity and May Not Drive (while taking narcotic pain medications.) Dressing / Incision Call your doctor if you observe: Fever of 101 or Higher Follow Up Care Please Follow Up With: Bossman Carolina MD When: Call [phone] for an appointment Test Results: Test results from this visit will be discussed in further detail at your follow- up appointment, if applicable. Discharge Plan Admission Attending Provider: Bossman Carolina Primary Care Provider: Nikki Birch Discharge Orders/Prescriptions Prescriptions: No Action omeprazole 40 mg capsule,delayed release(DR/EC) 40 mg PO DAILY lorazepam 1 MG tablet 1 mg PO QHS venlafaxine 150 MG capsule 150 mg PO DAILY multivit with min-folic acid 0.4 MG tablet 0.4 mg PO DAILY lisinopril 5 mg tablet 20 mg PO DAILY venlafaxine [Effexor XR] 75 mg capsule,extended release 24hr 75 mg PO QHS valacyclovir 1 gram tablet 1,000 mg PO PRN PRN (Reason: COLD SORE) Patient Comments: TAKE 1 TABLET BY MOUTH EVERY DAY FOR 10 DAYS Referrals / Follow Up: Nikki Birch, DO [Primary Care Provider] - Disposition Disposition (needs filled in before D/C Order can be placed): Home, Self Care
--- NOTE | 2024-01-21 12:51 | PCM.HP.STD ---
HPI - General General Date of Service: 01/21/24 Chief Complaint: Stress incontinence HPI Narrative MALVIN SIMON, is a 73 F who presents for placement of a tension-free vaginal sling for stress incontinence were also can have to do a dilation of the introitus. [facility] Medical History Acute frontal sinusitis, unspecified Anxiety Arthritis Back pain Bladder disease Cancer Chronic anxiety Depression Difficulty swallowing Dilatation of esophagus Easy bruising GERD (gastroesophageal reflux disease) Hypertension Hypertension Ischemic colitis Lab test negative for COVID-19 virus Low iron Lymphadenopathy Malignant neoplasm of tonsillar fossa Meningitis Non-smoker Shortness of breath on exertion Stomach ulcer Tuberculosis UTI (urinary tract infection) Vertigo Home Medications lorazepam 1 mg tablet 1 mg PO QHS 01/15/17 [History Last Taken 01/20/24] venlafaxine 150 mg capsule,extended release 24 hr 150 mg PO DAILY 11/13/17 [History Last Taken 01/21/24] multivitamin with minerals-folic acid 0.4 mg tablet 0.4 mg PO DAILY 09/14/20 [History Last Taken 01/20/24] lisinopril 5 mg tablet 20 mg PO DAILY 06/25/21 [History Last Taken 01/21/24] omeprazole 40 mg capsule,delayed release 40 mg PO DAILY 06/25/21 [History Last Taken 01/21/24] valacyclovir 1 gram tablet 1,000 mg PO PRN PRN COLD SORE 01/15/24 [History Last Taken Unknown] venlafaxine 75 mg capsule,extended release 24 hr (Effexor XR) 75 mg PO QHS 01/15/24 [History Last Taken 01/20/24] Allergy/AdvReac Type Severity Reaction Status Date / Time levofloxacin [From Levaquin] AdvReac Severe Other Verified 01/21/24 11:20 morphine AdvReac Severe Other Verified 01/21/24 11:20 Sulfa (Sulfonamide AdvReac Severe Hives Verified 01/21/24 11:20 Antibiotics) Family History Father Hypertension CVA (cerebral vascular accident) Arthritis Heart disease Surgical History History of appendectomy History of esophagogastroduodenoscopy (EGD) History of hysterectomy History of left hip replacement History of repair of hiatal hernia History of right hip replacement History of tonsillectomy Social History Smoking Status: Never smoker Vital Signs Vital Signs Vital Signs: 01/21/24 11:21 01/21/24 11:21 Temperature 98.8 F Temperature Source Temporal Pulse Rate 86 Respiratory Rate 16 Respiratory Pattern Normal Blood Pressure 147/80 H Blood Pressure Mean 102 Blood Pressure Source Monitor Blood Pressure Position Semi-Fowlers Blood Pressure Location Left Arm Pulse Ox 100 Oxygen Delivery Method Room Air Weight Weight: 66 kg Body Mass Index (BMI) 28.4
[2024-01-21] MEDS: Cefazolin 2 GM in 0.9% Normal Saline (100mL Bag) 100 ML IV (13:20)
[2024-01-21] MEDS: Lidocaine 1%/Epi 1:200 (30ml) 30 ML AMPUL (13:58)
--- NOTE | 2024-01-21 14:18 | OP.PCM_ITS ---
Report of Operation Date of Procedure: 01/21/24 Pre-Operative Diagnosis: Stress incontinence and labial adhesions Post-Operative Diagnosis: The same Surgery/Procedure Performed:: Placement of a tension-free sling with mesh and release of labial adhesions Description of Surgical Findings:: Patient presents today for placement of a tension-free vaginal sling, she has a diagnosis of incontinence and has been evaluated in the preoperative setting. We discussed how the procedure will be done what to expect afterwards. She understands is possible she may need a catheter in the short-term. We discussed the risk of bleeding and also the possibility of infection with the placement of the sling. We discussed the fact that we can be using artificial mesh and that there is a small risk of infection, erosion into the urethra, vaginal area, bladder and a small risk that she may require surgery down the road to address any problems or erosions with the mesh in the long-term. She was also given no guarantees as to how well the sling would work and that her incontinence may not improved to her satisfaction. After reviewing this with the patient she agreed to proceed with the placement of the sling. Patient was taken back to the operating room, after smooth induction of general anesthesia she was placed in dorsolithotomy position. She underwent vaginal prep and was placed in dorsolithotomy position. She had very dense labial ad hesions of the minor labial. This was dilated first and then using Metzenbaums adhesions were released in order to proceed with the placement of the tension- free vaginal sling. A Smith catheter was placed into the bladder and Inflated with 10 cc of sterile water into the balloon. I then marked out the bladder neck with a marking pen and marked out the mid urethra. The urethra was then infiltrated with lidocaine with 1:1000 epinephrine, after the injecting into the urethra then a midline incision was made in the urethra long enough to create a space for the trocar. I then used curved Metzenbaum scissors to dissect periurethrally up to the right side underneath the pubic bone, and then dissect periurethrally up to the left side underneath the pubic bone creating the tunnel for the sling. I then went up to the pubic bone and the patient was in Trendelenburg position and marked two incision site 2 cm from the midline on the left and right side. I then infiltrated the skin with lidocaine and then made a small stab incision in the right and left side exactly where the ha were above the pubic bone. Making sure that the bladder was completely empty I then guided the suprpubid desera trocar top-down on the right side first coming behind the pubic bone following it into the incision below the urethra. Once the suprapubic trocar was passed then I deflated the balloon and remove the Smith catheter went into the bladder with a 70 degree lens and inspected the bladder and there was no perforation damage or injury to the bladder, no damage to the ureter, and no damage to the urethra. I then hooked the end of the desara sling to the suprapubic trocar and advanced it up through the tunnel and then put a snap on the end of the sling. I then went to the other side to pass the sling. The 18fr Smith catheter was replaced into the bladder with 10 cc of water into the balloon and then drained the bladder completely and then I guided the suprapubic trocar down on the left side from top down behind the pubic bone into the incision below the urethra. I then deflated the balloon removed the Smith catheter and performed a cystoscopy again and inspected the bladder with a 70 degree there was no injury to the bladder, the ureter, or the urethra on inspection. I then grabbed the other end of the sling and using the suprapubic trocar pulled the sling on the other side and put a snap on the sling end. I then put a snap in the middle the sling and then both ends of the slings were then pulled up and then the sling was tensioned below the urethra ensuring that the sling was flat that there was no kinking or pulling or twisting and laid nicely tension-free underneath the urethra. Then both ends of the slings were cut and then the plastic sheath covering the mesh was removed deploying the sling, the excess mesh was then trimmed from the suprapubic area and the mesh ends were dunked down deep in the subcutaneous fat. The Smith catheter was removed and we checked the bladder with a 30 and 70 degree lens making sure there is no injury to the urethra, bladder and no perforation with a mesh. The urine was nice and clear with no blood. I then closed the incision below the urethra with a running 3-0 Vicryl and thenclosed the 2 suprapubic incisions with interrupted 4-0 Monocryl. The bladder was left empty anesthetic was reversed and she was taken back to the PACU and will undergo a voiding trial before discharge. Surgeon: Bossman Carolina Type of Anesthesia: General Drains: smith Admit VTE Documentation VTE Present on Admission: No VTE Mechan Device Prophylaxis: SCD's VTE Pharm Prophylaxis ordered?: No
[2024-01-21] MEDS: Ketorolac 15 MG/ML Vial IM (15:20)
== END 2024-01-21 19:20 | disposition home or self-care (01) ==
LOC: SDC 10:57 → AC 10:58
PROVIDERS: PCP Family Medicine; Referring Provider Urology; Visit Provider Urology
PROC: 0TJB8ZZ Inspection of Bladder, Via Natural or Artificial Opening Endoscopic (ICD-10-PCS; CPT 57288; principal; 2024-01-21 12:45)
DX: N39.3 Stress incontinence (female) (male) (principal); I10 Essential (primary) hypertension; N90.89 Other specified noninflammatory disorders of vulva and perineum; K21.9 Gastro-esophageal reflux disease without esophagitis; F32.A Depression, unspecified; Z90.49 Acquired absence of other specified parts of digestive tract; Z90.710 Acquired absence of both cervix and uterus; Z96.641 Presence of right artificial hip joint; Z87.19 Personal history of other diseases of the digestive system
CPT/HCPCS: 57288; 49999; 00940; 93005; J7120; C1771; J2405

== ENCOUNTER → 2024-02-05 | Outpatient (CLI) | payer MEDICARE, SELFPAY ==
--- NOTE | 2024-03-16 19:21 | HP.PCM_ITS ---
History of Present Illness Date of Service: 03/16/24 Chief Complaint: Hyperbaric Oxygen Treatment for Osteoradionecrosis/Delayed Radiation Injury History of Wound: Farideh is a pleasant 74 yo woman that presented to the wound healing center for consultation and evaluation for hyperbaric oxygen treatment for delayed radiation injury/osteoradionecrosis. She was referred for treatment by Dr. Gonzáles, her dentist who is planning to surgical extraction of 2 teeth on the right upper/lower jaw and in preparation of this procedure due to her previous radiation and evidence of soft tissue radionecrosis and osteoradionecrosis of her jaw on exam requests treatment with hyperbaric oxygen in order to prepare the tissue for surgical procedure and promote healing. She relays that she has limited movement of her jaw and xerostomia as well as right jaw pain since her radiation treatment as well as dental issues. Her radiation treatment was to her right neck and subclavian region. She was treated with 200 cGy over a total of 59 days to her right neck with a total dose of 7,000 cGy and 180 cGy to her right subclavian for a total dose of 4,500 cGy over a total of 34 days over the time period of 12/10/2016 to 02/07/2017. 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 She had direct laryngoscopy, right tonsillectomy, and fine needle aspiration of the right neck mass on 10/25/[address] Graves. 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 Cytology of the right neck mass also showed squamous cell carcinoma. PET CT scan on 11/20/2016 showed focal hypermetabolic activity in the right palatine tonsil and hypermetabolic activity in the right level II and level III nodes. She started combined chemotherapy and radiation therapy on 12/10/2016 with Cisplatin 40 mg/m2 weekly and finished the 7th cycle on 02/04/2017. Treatment was complicated by neutropenia and mucositis, which prevented the patient from eating. and she had temporary PEG tube for parenteral feeding during treatment. She has had PEG tube removed and is eating by mouth but has residual slight pain R jaw with decreased ability to open her mouth due to radiation injury. She had a PET/CT 05/05/2017 which showed no activity in the mouth/neck but slight activity in the R upper lobe SUV 1.9. CT neck and chest on 08/04/2017 showed no dominant mass or nodes in the neck, interstitial infiltrates RUL. Had CT chest and neck on 08/04/2018 showed right post radiation fibrosis, T12 compression fracture which she underwent vertebroplasty for treatment by Dr. Pang. [facility] Medical History Easy bruising Depression Anxiety Arthritis Bladder disease Low iron Back pain Vertigo Difficulty swallowing Tuberculosis Ischemic colitis Non-smoker Shortness of breath on exertion Cancer UTI (urinary tract infection) Dilatation of esophagus Lab test negative for COVID-19 virus Acute frontal sinusitis, unspecified Stomach ulcer Meningitis Hypertension Chronic anxiety Hypertension GERD (gastroesophageal reflux disease) Lymphadenopathy Malignant neoplasm of tonsillar fossa Home Medications ?Medication ?Instructions ?Recorded ?Last Taken ?Type lorazepam 1 mg tablet 1 mg PO QHS 01/15/17 01/20/24 History venlafaxine 150 mg 150 mg PO DAILY 11/13/17 01/21/24 History capsule,extended release 24 hr multivitamin with minerals-folic 0.4 mg PO DAILY 09/14/20 01/20/24 History acid 0.4 mg tablet lisinopril 5 mg tablet 20 mg PO DAILY 06/25/21 01/21/24 History omeprazole 40 mg capsule,delayed 40 mg PO DAILY 06/25/21 01/21/24 History release valacyclovir 1 gram tablet 1,000 mg PO PRN PRN COLD SORE 01/15/24 Unknown History venlafaxine 75 mg capsule,extended 75 mg PO QHS 01/15/24 01/20/24 History release 24 hr (Effexor XR) oxycodone 5 mg tablet 5 mg PO Q6H PRN pain 7 days #10 01/21/24 Unknown Rx tabs amoxicillin 500 mg tablet 500 mg PO TID 03/05/24 Unknown History oxybutynin chloride 10 mg 10 mg PO DAILY 03/05/24 Unknown History tablet,extended release 24 hr Allergy/AdvReac Type Severity Reaction Status Date / Time levofloxacin (From Levaquin) AdvReac Severe Other Verified 03/05/24 08:33 morphine AdvReac Severe Other Verified 03/05/24 08:33 Sulfa (Sulfonamide AdvReac Severe Hives Verified 03/05/24 08:33 Antibiotics) Family History Father Hypertension CVA (cerebral vascular accident) Arthritis Heart disease Surgical History History of esophagogastroduodenoscopy (EGD) History of repair of hiatal hernia History of appendectomy History of left hip replacement History of right hip replacement History of hysterectomy History of tonsillectomy Social History Smoking Status: Never smoker Physical Exam Const alert, oriented x3, no apparent distress and average body habitus General Appearance: cooperative, comfortable, well kempt and well developed Orientation / Consciousness: awake HEENT normocephalic and head/scalp atraumatic External Ear: external ears normal Tympanic Membrane: other Other Details: Otoscopic examination was performed of the ear canals bilaterally. The right tympanic membrane was noted to be erythematous. The left tympanic membrane appeared to be normal in appearance. 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 This represents the second session of hyperbaric oxygen therapy. She tolerated her first session of hyperbaric oxygen treatment yesterday, without complaints or complications. However, last night, she began to develop pain in her right ear. Upon presentation today, in preparation for her second hyperbaric oxygen therapy session, otoscopic examination was performed, demonstrating the right tympanic membrane to be erythematous, consistent with her complaints of pain and discomfort. Therefore, the decision was made to forego hyperbaric oxygen therapy today, and the patient has been arranged for an appointment with the ENT service tomorrow, where it is anticipated that myringotomy tubes will be placed. Thereafter, it is anticipated that hyperbaric oxygen therapy sessions will resume. An explanation has been provided to the patient as to the plan of management. Her questions have been answered. Total time: 16 minutes
== END | disposition home or self-care (01) ==
LOC: LABSPEC 16:10
PROVIDERS: PCP Family Medicine; Referring Provider Urology; Visit Provider Urology
DX: R30.0 Dysuria (principal)
CPT/HCPCS: 87077; 87086; 87088; 87186

== ENCOUNTER 2024-03-22 12:10 | Day surgery (SDC) | payer MEDICARE, SELFPAY ==
[2024-03-22 12:32] VITALS: BP 136/80; PULSE 81; RESP 16; TEMP 36.8; O2SAT 100; BMI 27.7
[2024-03-22] MEDS: Lactated Ringers 1,000 ML 15 ML IV (12:37)
--- NOTE | 2024-03-22 14:29 | PCM.DC.SUM ---
Providers Primary Care Physician: Dr. Nikki Birch, DO Medications at Discharge Home Medications lorazepam 1 mg tablet 1 mg PO QHS 01/15/17 venlafaxine 150 mg capsule,extended release 24 hr 150 mg PO DAILY 11/13/17 lisinopril 5 mg tablet 20 mg PO DAILY 06/25/21 omeprazole 40 mg capsule,delayed release 40 mg PO DAILY 06/25/21 valacyclovir 1 gram tablet 1,000 mg PO PRN PRN COLD SORE 01/15/24 venlafaxine 75 mg capsule,extended release 24 hr (Effexor XR) 75 mg PO QHS 01/15/24 oxybutynin chloride 10 mg tablet,extended release 24 hr 10 mg PO DAILY 03/05/24 amoxicillin 500 mg-potassium clavulanate 125 mg tablet 1 tab PO Q8 03/19/24 Weight / BMI Weight Weight: 64.41 kg Body Mass Index (BMI) 27.7 D/C Instructions Discharge Diet: No restrictions Discharge Activity: Return to Normal Activity Additional Instructions: ear drops.....5 drops each ear every 12 hours for 3 doses. Start tonight Please Follow Up With: Jeffy Cornelius MD When: 6 months Meaningful Use Info Meaningful Use Meaningful Use Diagnoses (Choose all that apply): None applicable Ischemic Stroke Statin Dosing Therapy Reference: STATIN DOSE THERAPY REFERENCE: * Patients > 75 years receive moderate or high dose statin therapy. * Patients 75 years or YOUNGER should receive HIGH intensity statin dose unless contraindicated. You will be required to document reason for non-treatment if statin daily dose does not meet guidelines. HIGH DOSE STATIN THERAPY DAILY Atorvastatin > than or = to 40 mg Rosuvastatin > than or = to 20 mg Amlodipine + Atorvastatin > than or = to 2.5/40 mg Ezetimibe + Simvastatin 10/80 mg Simvastatin 80mg Discharge Plan Admission Attending Provider: Jeffy Cornelius Primary Care Provider: Nikki Birch Instructions Print Language: Occitan Discharge Orders/Prescriptions Prescriptions: No Action omeprazole 40 mg capsule,delayed release(DR/EC) 40 mg PO DAILY lorazepam 1 MG tablet 1 mg PO QHS venlafaxine 150 MG capsule 150 mg PO DAILY lisinopril 5 mg tablet 20 mg PO DAILY venlafaxine [Effexor XR] 75 mg capsule,extended release 24hr 75 mg PO QHS valacyclovir 1 gram tablet 1,000 mg PO PRN PRN (Reason: COLD SORE) Patient Comments: TAKE 1 TABLET BY MOUTH EVERY DAY FOR 10 DAYS oxybutynin chloride 10 mg tablet extended release 24hr 10 mg PO DAILY amoxicillin-pot clavulanate 500-125 mg tablet 1 tab PO Q8 Referrals / Follow Up: Nikki Birch DO [Primary Care Provider] - Disposition Disposition (needs filled in before D/C Order can be placed): Home, Self Care
--- NOTE | 2024-03-22 14:34 | OP.PCM_ITS ---
Report of Operation Date of Procedure: 03/22/24 Pre-Operative Diagnosis: barotrauma Post-Operative Diagnosis: same Surgery/Procedure Performed:: bilateral myringotomy with tubes Surgeon: Jeffy Cornelius Type of Anesthesia: General Anesthesiologist: Brandan Dubose Estimated Blood Loss (mL): none Description of Procedure: The patient was taken to the operating room on 03/22/2024.. The patient was placed in the supine position on the operating room table. The patient was given sufficient general anesthesia. The operating microscope was used throu ghout the entire case. A speculum was inserted into the patient's left ear. Cerumen was removed using a curette. An incision was placed in the anterior inferior quadrant of the tympanic membrane. A Migue Bobin tube was placed without difficulty. Antibiotic drops were instilled into the patient's ear. Next, a speculum was inserted into the patient's right ear. Cerumen was removed using a curette. An incision was placed in the anterior inferior quadrant of the tympanic membrane. A migue bobin tube was placed without difficulty. Antibiotic drops were instilled into the patient's ear. The patient was then awoken. They were brought to the recovery room in stable condition. Blood loss minimal, replacement none. sponge needle and instrument counts correct at the end of the procedure.
[2024-03-22] MEDS: Ciprofloxacin 0.3% 2.5ml Bottle 1 DRP (14:38)
[2024-03-22 14:45] VITALS: BP 115/64; BP 136/80; PULSE 70; RESP 16; TEMP 36.3; O2SAT 94
[2024-03-22 14:50] VITALS: BP 115/63; BP 136/80; PULSE 72; RESP 16; O2SAT 92
[2024-03-22 14:59] VITALS: BP 114/64; BP 136/80; PULSE 72; RESP 16; TEMP 36.6; O2SAT 92
[2024-03-22 15:27] VITALS: BP 136/80
== END 2024-03-22 15:32 | disposition home or self-care (01) ==
LOC: SDC 12:11 → AC 12:14
PROVIDERS: PCP Family Medicine; Referring Provider Otolaryngology; Visit Provider Otolaryngology
PROC: (CPT 69436; principal; 2024-03-22 13:40)
DX: H65.23 Chronic serous otitis media, bilateral (principal); T70.0XXA Otitic barotrauma, initial encounter; I10 Essential (primary) hypertension; K21.9 Gastro-esophageal reflux disease without esophagitis; Z79.899 Other long term (current) drug therapy; F41.9 Anxiety disorder, unspecified; F32.A Depression, unspecified; X58.XXXA Exposure to other specified factors, initial encounter
CPT/HCPCS: 69436; 00126; J7120; J2405

== ENCOUNTER 2024-04-01 13:00 | Outpatient (RCR) | payer MEDICARE, SELFPAY ==
[2024-03-05 08:18] VITALS: BP 154/85; PULSE 75; TEMP 36.8; BMI 27.3
--- NOTE | 2024-03-05 10:03 | RAD_ITS ---
STUDY: X-RAY CHEST REASON FOR EXAM: Female, 74 years old. Chest pain/pressure TECHNIQUE: PA and lateral views of the chest. COMPARISON: None. FINDINGS: The lungs are clear and expanded. There is no demonstrated pleural abnormality. Normal size heart. Normal mediastinum and dorothy. Normal visualized pulmonary arteries. Normal visualized aortic arch and descending thoracic aorta. Degenerative bony changes, evidence of previous vertebroplasty at L1 Normal visualized ribs, clavicles, and shoulders. There is a rotatory scoliosis There is no demonstrated abnormality of the visualized soft tissue structures of the upper abdomen. RAD/Chest PA and Lateral IMPRESSION: No acute pulmonary process Electronically Signed: Howard Steve MD at 23:25 EDT ,
--- NOTE | 2024-03-05 13:01 | HBO.CON.PC_ITS ---
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 She has significant xerostomia and potential for healing failure due to her radiation history. She is otherwise free of comorbid conditions contributing to efficacy of HBOT. She has had no history of pneumothorax and no emphysema. It has been 7 years since her treatment with Cisplatin for her oropharyngeal cancer. Treatment with hyperbaric oxygen for soft tissue necrosis/osteoradionecrosis status post radiation treatment is recommended for the patient in conjunction with dental extraction. Prescribed treatment regimen is for Hyperbaric Oxygen Treatment at 2.0 MAURIZIO for 90 minutes without air breaks for a total of 30 treatments (20 treatments prior to dental extraction and 10 treatments post extraction). Treatments will be completed once daily 5 days/week. The risks, benefits and complications of hyperbaric oxygen treatment have been discussed with the patient and they verbalize understanding of these with the most common complication being barotrauma to the ears. Goals of treatment include improved salivation, decreased pain and healing post- operatively from dental extraction. History of Present Illness Date of Service: 03/05/24 Chief Complaint: Consultation for Hyperbaric Oxygen Treatment for Osteoradionecrosis/Delayed Radiation Injury History of Wound: Farideh is a pleasant 74 yo woman that presents to the wound healing center today for consultation and evaluation for hyperbaric oxygen treatment for delayed radiation injury/osteoradionecrosis. She was referred for treatment by Dr. Gonzáles, her dentist who is planning to surgical extraction of 2 teeth on the right upper/lower jaw and in preparation of this procedure due to her previous radiation and evidence of soft tissue radionecrosis and osteoradionecrosis of her jaw on exam requests treatment with hyperbaric oxygen in order to prepare the tissue for surgical procedure and promote healing. She relays that she has limited movement of her jaw and xerostomia as well as right jaw pain since her radiation treatment as well as dental issues. Her radiation treatment was to her right neck and subclavian region. She was treated with 200 cGy over a total of 59 days to her right neck with a total dose of 7,000 cGy and 180 cGy to her right subclavian for a total dose of 4,500 cGy over a total of 34 days over the time period of 12/10/2016 to 02/07/2017. 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 She had direct laryngoscopy, right tonsillectomy, and fine needle aspiration of the right neck mass on 10/25/[address] Graves. 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 Cytology of the right neck mass also showed squamous cell carcinoma. PET CT scan on 11/20/2016 showed focal hypermetabolic activity in the right palatine tonsil and hypermetabolic activity in the right level II and level III nodes. She started combined chemotherapy and radiation therapy on 12/10/2016 with Cisplatin 40 mg/m2 weekly and finished the 7th cycle on 02/04/2017. Treatment was complicated by neutropenia and mucositis, which prevented the patient from eating. and she had temporary PEG tube for parenteral feeding during treatment. She has had PEG tube removed and is eating by mouth but has residual slight pain R jaw with decreased ability to open her mouth due to radiation injury. She had a PET/CT 05/05/2017 which showed no activity in the mouth/neck but slight activity in the R upper lobe SUV 1.9. CT neck and chest on 08/04/2017 showed no dominant mass or nodes in the neck, interstitial infiltrates RUL. Had CT chest and neck on 08/04/2018 showed right post radiation fibrosis, T12 compression fracture which she underwent vertebroplasty for treatment by Dr. Pang. [facility] Medical History (Updated 03/05/24 @ 13:[address] Nikki Eaton DO) Acute frontal sinusitis, unspecified Anxiety Arthritis Back pain Bladder disease Cancer Chronic anxiety Depression Difficulty swallowing Dilatation of esophagus Easy bruising GERD (gastroesophageal reflux disease) Hypertension Hypertension Ischemic colitis Lab test negative for COVID-19 virus Low iron Lymphadenopathy Malignant neoplasm of tonsillar fossa Meningitis Non-smoker Shortness of breath on exertion Stomach ulcer Tuberculosis UTI (urinary tract infection) Vertigo Home Medications lorazepam 1 mg tablet 1 mg PO QHS 01/15/17 [History Last Taken 01/20/24] venlafaxine 150 mg capsule,extended release 24 hr 150 mg PO DAILY 11/13/17 [History Last Taken 01/21/24] multivitamin with minerals-folic acid 0.4 mg tablet 0.4 mg PO DAILY 09/14/20 [History Last Taken 01/20/24] lisinopril 5 mg tablet 20 mg PO DAILY 06/25/21 [History Last Taken 01/21/24] omeprazole 40 mg capsule,delayed release 40 mg PO DAILY 06/25/21 [History Last Taken 01/21/24] valacyclovir 1 gram tablet 1,000 mg PO PRN PRN COLD SORE 01/15/24 [History Last Taken Unknown] venlafaxine 75 mg capsule,extended release 24 hr (Effexor XR) 75 mg PO QHS 01/15/24 [History Last Taken 01/20/24] oxycodone 5 mg tablet 5 mg PO Q6H PRN pain 7 days #10 tabs 01/21/24 [Rx Last Taken Unknown] amoxicillin 500 mg tablet 500 mg PO TID 03/05/24 [History Last Taken Unknown] oxybutynin chloride 10 mg tablet,extended release 24 hr 10 mg PO DAILY 03/05/24 [History Last Taken Unknown] Allergy/AdvReac Type Severity Reaction Status Date / Time levofloxacin [From Levaquin] AdvReac Severe Other Verified 03/05/24 08:33 morphine AdvReac Severe Other Verified 03/05/24 08:33 Sulfa (Sulfonamide AdvReac Severe Hives Verified 03/05/24 08:33 Antibiotics) Family History Father Hypertension CVA (cerebral vascular accident) Arthritis Heart disease Surgical History History of appendectomy History of esophagogastroduodenoscopy (EGD) History of hysterectomy History of left hip replacement History of repair of hiatal hernia History of right hip replacement History of tonsillectomy Social History Smoking Status: Never smoker ROS Constitutional Constitutional: Denies chills, fatigue or fever(s) Eyes Eyes: Denies blurry vision, change in vision or loss of vision ENT HEENT: Reports dental pain, dry mouth, loss taste/smell, mouth pain and tinnitus; Denies dysphagia, hearing loss or sore throat Cardiovascular Cardiovascular: Denies chest pain, edema or palpitations Respiratory/Chest Respiratory/Chest: Denies dry cough, dyspnea, dyspnea on exertion, productive cough or wheezing Gastrointestinal Gastrointestinal: Denies diarrhea, nausea or vomiting Genitourinary Genitourinary: Denies dysuria or polyuria Musculoskeletal Musculoskeletal: Denies arthralgias, joint stiffness or muscle weakness Integumentary Integumentary: Reports dry skin Neurologic Neurologic: Denies dizziness, memory loss or weakness Psychiatric Psychiatric: Reports anxiety; Denies homicidal ideation or suicidal ideation Endocrine Endocrinology: Denies polydipsia, polyphagia or polyuria Hematologic/Lymphatic Hematologic/Lymphatic: Denies easy bleeding or easy bruising Allergic/Immunologic Allergic/Immunologic: Denies throat swelling, tongue swelling or urticaria Physical Exam Physical Exam Const alert, oriented x3, no apparent distress, healthy appearing and well nourished General Appearance: cooperative, comfortable, well kempt and well developed HEENT normocephalic, head/scalp atraumatic, external ears normal, EAC's normal, TM's normal bilaterally and nasal mucous membranes and turbinates normal HEENT Narrative: pale gums and poor visualization of teeth and gums and posterior OP due to limited ability for her to open her mouth widely Head and Scalp: normal to inspection and normocephalic External Auditory Canal: EAC's normal Tympanic Membrane: TM's normal bilaterally Mouth: lips normal, dry mucous membranes and restricted motion Eyes PERRL and EOMs intact bilaterally Neck no lymphadenopathy and supple General: trachea midline Lymph Lymphatic: no lymphadenopathy noted Chest inspection of chest normal Resp normal respiratory effort Effort and Inspection: able to speak in complete sentences and symmetric chest movement Auscultation: Negative for crackles, rales, rhonchi or wheezes Cardio regular rate and regular rhythm GI normal to inspection, nondistended, normoactive bowel sounds, soft to palpation, non-tender, non-distended and no masses Back/Spine Thoracic Spine / Upper Back: kyphosis Extremity no clubbing, cyanosis or edema Skin no rashes or lesions noted Wounds: wounds noted Wound Narrative: as in clinical panel Neuro oriented x3, moves all extremities and gait normal Psych mental status grossly normal, thought process normal, cooperative and affect normal Nursing Assessment and Debridement Post-Debridement Measurements and Additional Note: Post-Debridement Measurements/Treatment WC - Nurse 1 - General Ulcer Assessment Start: 03/05/24 08:17 Freq: Status: Active Protocol: SUHAIL Activity Type Activity Date Activity User E-sign Co-sign Detail Recorded Client Recorded Date Recorded By Document 03/05/24 08:18 DS Desktop 03/05/24 08:33 DS 03/05/24 08:18 WC - Today's Visit Information Type of service HBO Consult Arrival Mode Ambulatory Accompanied by Patient Identification Verified (Name & Yes ) Safety Precautions NA Height and Weight Height 5 ft Weight 63.503 kg Weight in Pounds 140.0 lbs Weight Measurement Method Estimated by Patient Body Mass Index (BMI) 27.3 BMI Classification Overweight BSA - Coreen 1.60 Vital Signs Temperature (97.8 F-99.1 F) 98.3 F Temperature Source Temporal Pulse Rate (60-100) 75 Pulse Location Monitor Blood Pressure (90/60-120/80) 154/85 H Blood Pressure Mean (mm Hg) 108 Source Monitor Position Sitting Blood Pressure Location Left Arm Pain Scale: 0-10 Numeric Is Patient Pain Free? No right jaw -Description Aching -Intensity 8 -Duration (hours) Chronic -Alleviating Factors/Interventions Will continue to monitor, Patient denies need for intervention, Emotional Support Communication Assessment Preferred language Hebrew Able to Read Yes Able to Write Yes Right Hearing Abillity Normal Left Hearing Abillity Normal Visual Assistive Devices Glasses Teaching Assessment Preferences Verbal,Written, Demonstration Readiness To Learn Excellent Willingness to Engage in Self Management High Activies Readiness to Engage in Self Management High Activities Anxiety Level Calm Cooperation Cooperative Perception Coherent Interest in Health Problem Asks Questions Education Importance Acknowledges Need Does Patient Smoke tobacco or other No substances Smoking Status Never smoker Is Patient Diabetic No Functional Assessment Recent Decline in Ability to Perform Denies Any Declines Culture/Latter Day/[employer] Cultural/Latter Day Needs that may affect No Treatment Plan Teaching: Wound Center *Hyperbaric Medicine (HBO) -Person Taught Patient,Family -Teaching Method Discussion -Response to teaching Verbalize understanding *Welcome to the Wound Center -Person Taught Patient,Family -Teaching Method Discussion -Response to teaching Verbalize understanding EKG NSR, rate 96 bpm: Prior EKG tracings: available for review EKG Rhythm Intrepretation: Sinus Rhythm Imaging Chest CT 2018 did not show any evidence of COPD or emphysema. Evidence of radiation fibrosis right upper lobe. Chest xray 03/05/2024 official read pending but no acute process or evidence of emphysema on my interpretation.
--- NOTE | 2024-03-15 08:30 | HBO.PN.PCM_ITS ---
History of Present Illness Date of Service: 03/15/24 Chief Complaint: Consultation for Hyperbaric Oxygen Treatment for Osteorad ionecrosis/Delayed Radiation Injury History of Wound: Farideh is a pleasant 74 yo woman that presents to the wound healing center today for consultation and evaluation for hyperbaric oxygen treatment for delayed radiation injury/osteoradionecrosis. She was referred for treatment by Dr. Gonzáles, her dentist who is planning to surgical extraction of 2 teeth on the right upper/lower jaw and in preparation of this procedure due to her previous radiation and evidence of soft tissue radionecrosis and osteoradionecrosis of her jaw on exam requests treatment with hyperbaric oxygen in order to prepare the tissue for surgical procedure and promote healing. She relays that she has limited movement of her jaw and xerostomia as well as right jaw pain since her radiation treatment as well as dental issues. Her radiation treatment was to her right neck and subclavian region. She was treated with 200 cGy over a total of 59 days to her right neck with a total dose of 7,000 cGy and 180 cGy to her right subclavian for a total dose of 4,500 cGy over a total of 34 days over the time period of 12/10/2016 to 02/07/2017. 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 She had direct laryngoscopy, right tonsillectomy, and fine needle aspiration of the right neck mass on 10/25/[address] Graves. 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 Cytology of the right neck mass also showed squamous cell carcinoma. PET CT scan on 11/20/2016 showed focal hypermetabolic activity in the right palatine tonsil and hypermetabolic activity in the right level II and level III nodes. She started combined chemotherapy and radiation therapy on 12/10/2016 with Cisplatin 40 mg/m2 weekly and finished the 7th cycle on 02/04/2017. Treatment was complicated by neutropenia and mucositis, which prevented the patient from eating. and she had temporary PEG tube for parenteral feeding during treatment. She has had PEG tube removed and is eating by mouth but has residual slight pain R jaw with decreased ability to open her mouth due to radiation injury. She had a PET/CT 05/05/2017 which showed no activity in the mouth/neck but slight activity in the R upper lobe SUV 1.9. CT neck and chest on 08/04/2017 showed no dominant mass or nodes in the neck, interstitial infiltrates RUL. Had CT chest and neck on 08/04/2018 showed right post radiation fibrosis, T12 compression fracture which she underwent vertebroplasty for treatment by Dr. Pang. Subjective Subjective This patient presents to the office today for the first hyperbaric oxygen therapy session of 30 scheduled. Treatment is to be administered for delayed radiation injury/osteonecrosis. Tolerance of hyperbaric oxygen therapy: Hyperbaric oxygen treatment was provided as per the facility's protocol at 2.0 MAURIZIO in 100% oxygen for 90 minutes without air breaks. The patient tolerated hyperbaric oxygen well, without complications or complaints. Upon emergence of the hyperbaric chamber, the patient's vital signs remained stable. Objective Data Objective Data Vital Signs: Vital Signs Temp Pulse BP 98.3 F 75 154/85 H 03/05/24 08:18 03/05/24 08:18 03/05/24 08:18 Weight: 140 lb Body Mass Index (BMI) 27.3 Exam Physical Exam Const alert and no apparent distress General Appearance: cooperative HEENT External Ear: external ears normal Tympanic Membrane: TM's normal bilaterally Resp normal respiratory effort and clear to auscultation bilaterally Effort and Inspection: able to speak in complete sentences Cardio regular rate and regular rhythm Psych Appearance: grossly normal Speech: normal speech Assessment/Plan Assessment/Plan (1) Osteonecrosis of temporomandibular joint: CODE(S): M87.88 - Other osteonecrosis, other site (2) 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
[2024-03-15 08:31] VITALS: BP 123/72; BP 130/70; PULSE 66; PULSE 76; RESP 14; RESP 15; TEMP 36.5; TEMP 36.9
--- NOTE | 2024-03-16 13:54 | WC ---
Patient arrived for HBO treatment and stated yesterday after the dive she was fine however, around mid afternoon had some right ear pain. Right tympanic membrane was red. assessed and this nurse set up an appointment with [facility] for 03/17/2024 at 3:15pm. Patient instructed to call clinic afterward to schedule her next treatment.
[2024-03-18 13:59] VITALS: BP 134/78; PULSE 76; RESP 18; TEMP 37
--- NOTE | 2024-03-18 15:03 | HBO.PN.PCM_ITS ---
History of Present Illness Date of Service: 03/18/24 Chief Complaint: Hyperbaric Oxygen Treatment for Osteoradionecrosis/Delayed Radiation Injury History of Wound: Farideh is a pleasant 74 yo woman that presented to the wound healing center for consultation and evaluation for hyperbaric oxygen treatment for delayed radiation injury/osteoradionecrosis. She was referred for treatment by Dr. Gonzáles, her dentist who is planning to surgical extraction of 2 teeth on the right upper/lower jaw and in preparation of this procedure due to her previous radiation and evidence of soft tissue radionecrosis and osteoradionecrosis of her jaw on exam requests treatment with hyperbaric oxygen in order to prepare the tissue for surgical procedure and promote healing. She relays that she has limited movement of her jaw and xerostomia as well as right jaw pain since her radiation treatment as well as dental issues. Her radiation treatment was to her right neck and subclavian region. She was treated with 200 cGy over a total of 59 days to her right neck with a total dose of 7,000 cGy and 180 cGy to her right subclavian for a total dose of 4,500 cGy over a total of 34 days over the time period of 12/10/2016 to 02/07/2017. 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 She had direct laryngoscopy, right tonsillectomy, and fine needle aspiration of the right neck mass on 10/25/[address] Graves. 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 Cytology of the right neck mass also showed squamous cell carcinoma. PET CT scan on 11/20/2016 showed focal hypermetabolic activity in the right palatine tonsil and hypermetabolic activity in the right level II and level III nodes. She started combined chemotherapy and radiation therapy on 12/10/2016 with Cisplatin 40 mg/m2 weekly and finished the 7th cycle on 02/04/2017. Treatment was complicated by neutropenia and mucositis, which prevented the patient from eating. and she had temporary PEG tube for parenteral feeding during treatment. She has had PEG tube removed and is eating by mouth but has residual slight pain R jaw with decreased ability to open her mouth due to radiation injury. She had a PET/CT 05/05/2017 which showed no activity in the mouth/neck but slight activity in the R upper lobe SUV 1.9. CT neck and chest on 08/04/2017 showed no dominant mass or nodes in the neck, interstitial infiltrates RUL. Had CT chest and neck on 08/04/2018 showed right post radiation fibrosis, T12 compression fracture which she underwent vertebroplasty for treatment by Dr. Pang. Subjective Subjective The patient has no complaints today. She denies pain in either ear. The patient had complained of right ear pain in association with her first hyperbaric oxygen treatment 2 days ago, where otoscopic examination revealed the right tympanic membrane to be erythematous. She was referred to the ENT service, and was evaluated yesterday by Dr. Cornelius. Dr. Cornelius apparently did not feel that insertion of tympanic tubes were warranted, and the patient presents today for the second of 30 planned hyperbaric oxygen treatments. Objective Data Objective Data Vital Signs: Vital Signs Temp Pulse Resp BP 98.6 F 76 18 134/78 H 03/18/24 13:59 03/18/24 13:59 03/18/24 13:59 03/18/24 13:59 Weight: 140 lb Body Mass Index (BMI) 27.3 Exam Physical Exam Const alert, oriented x3, no apparent distress and well nourished General Appearance: cooperative and well developed HEENT normocephalic and EAC's normal HEENT Narrative: Mild erythema is noted involving the right tympanic membrane. 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 This was her second such HBO treatment. 30 such sessions are planned. The patient had developed right ear pain following her first hyperbaric oxygen treatment, and was referred for ENT evaluation. Insertion of tympanostomy tubes was not felt warranted by the ENT service. The patient presents today without complaints, and specifically denies ear pain on either side. Prior to treatment, the right tympanic membrane was mildly erythematous, and the left relatively normal. Patient entered the chamber in her second hyperbaric oxygen therapy dive was initiated. The patient had not been in the chamber for more than 10 minutes, when she began to develop left ear pain. Full pressure in the dive was never achieved. Given the development of left ear pain, the dive was concluded by means of normal decompression. Upon withdrawal from the hyperbaric chamber, the patient remained in stable condition, but complained of left ear pain. Otoscopic examination of the left ear revealed the left tympanic membrane to be slightly erythematous. As result, the plan is for the patient to again be evaluated by the ENT service, and her subsequent HBO therapy will await further evaluation. Total time: 20 minutes
[2024-03-25 13:35] VITALS: BP 121/78; BP 153/84; PULSE 79; PULSE 96; RESP 14; RESP 18; TEMP 36.6
--- NOTE | 2024-03-25 14:54 | PCM.HBO.PN ---
History of Present Illness Date of Service: 03/25/24 Chief Complaint: Hyperbaric Oxygen Treatment for Osteoradionecrosis/Delayed Radiation Injury History of Wound: Farideh is a pleasant 74 yo woman that presented to the wound healing center for consultation and evaluation for hyperbaric oxygen treatment for delayed radiation injury/osteoradionecrosis. She was referred for treatment by Dr. Gonzáles, her dentist who is planning to surgical extraction of 2 teeth on the right upper/lower jaw and in preparation of this procedure due to her previous radiation and evidence of soft tissue radionecrosis and osteoradionecrosis of her jaw on exam requests treatment with hyperbaric oxygen in order to prepare the tissue for surgical procedure and promote healing. She relays that she has limited movement of her jaw and xerostomia as well as right jaw pain since her radiation treatment as well as dental issues. Her radiation treatment was to her right neck and subclavian region. She was treated with 200 cGy over a total of 59 days to her right neck with a total dose of 7,000 cGy and 180 cGy to her right subclavian for a total dose of 4,500 cGy over a total of 34 days over the time period of 12/10/2016 to 02/07/2017. 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 She had direct laryngoscopy, right tonsillectomy, and fine needle aspiration of the right neck mass on 10/25/[address] Graves. 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 Cytology of the right neck mass also showed squamous cell carcinoma. PET CT scan on 11/20/2016 showed focal hypermetabolic activity in the right palatine tonsil and hypermetabolic activity in the right level II and level III nodes. She started combined chemotherapy and radiation therapy on 12/10/2016 with Cisplatin 40 mg/m2 weekly and finished the 7th cycle on 02/04/2017. Treatment was complicated by neutropenia and mucositis, which prevented the patient from eating. and she had temporary PEG tube for parenteral feeding during treatment. She has had PEG tube removed and is eating by mouth but has residual slight pain R jaw with decreased ability to open her mouth due to radiation injury. She had a PET/CT 05/05/2017 which showed no activity in the mouth/neck but slight activity in the R upper lobe SUV 1.9. CT neck and chest on 08/04/2017 showed no dominant mass or nodes in the neck, interstitial infiltrates RUL. Had CT chest and neck on 08/04/2018 showed right post radiation fibrosis, T12 compression fracture which she underwent vertebroplasty for treatment by Dr. Pang. Progress of Wound: This patient presents to the office today for her 2nd hyperbaric oxygen therapy session of 30 scheduled. Treatment is to be administered for delayed radiation injury/osteonecrosis. Tolerance of hyperbaric oxygen therapy: Hyperbaric oxygen treatment was provided as per the facility's protocol at 2.0 MAURIZIO in 100% oxygen for 90 minutes without air breaks. The patient tolerated hyperbaric oxygen well, without complications or complaints. Upon emergence of the hyperbaric chamber, the patient's vital signs remained stable. Objective Data Objective Data Vital Signs: Vital Signs Temp Pulse Resp BP 98.6 F 76 18 134/78 H 03/18/24 13:59 03/18/24 13:59 03/18/24 13:59 03/18/24 13:59 Weight: 140 lb Body Mass Index (BMI) 27.3 Exam Physical Exam Const alert, oriented x3 and no apparent distress General Appearance: cooperative HEENT normocephalic HEENT Narrative: Bilateral TM with tympanostomy tubes in place. TM clear. 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
[2024-03-26 13:25] VITALS: BP 135/74; BP 146/72; PULSE 74; PULSE 82; RESP 14; RESP 16; TEMP 35.7; TEMP 37
--- NOTE | 2024-03-26 16:08 | HBO.PN.PCM_ITS ---
History of Present Illness Date of Service: 03/26/24 Chief Complaint: Hyperbaric Oxygen Treatment for Osteoradionecrosis/Delayed Radiation Injury History of Wound: Farideh is a pleasant 74 yo woman that presented to the wound healing center for consultation and evaluation for hyperbaric oxygen treatment for delayed radiation injury/osteoradionecrosis. She was referred for treatment by Dr. Gonzáles, her dentist who is planning to surgical extraction of 2 teeth on the right upper/lower jaw and in preparation of this procedure due to her previous radiation and evidence of soft tissue radionecrosis and osteoradionecrosis of her jaw on exam requests treatment with hyperbaric oxygen in order to prepare the tissue for surgical procedure and promote healing. She relays that she has limited movement of her jaw and xerostomia as well as right jaw pain since her radiation treatment as well as dental issues. Her radiation treatment was to her right neck and subclavian region. She was treated with 200 cGy over a total of 59 days to her right neck with a total dose of 7,000 cGy and 180 cGy to her right subclavian for a total dose of 4,500 cGy over a total of 34 days over the time period of 12/10/2016 to 02/07/2017. 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 She had direct laryngoscopy, right tonsillectomy, and fine needle aspiration of the right neck mass on 10/25/[address] Graves. 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 Cytology of the right neck mass also showed squamous cell carcinoma. PET CT scan on 11/20/2016 showed focal hypermetabolic activity in the right palatine tonsil and hypermetabolic activity in the right level II and level III nodes. She started combined chemotherapy and radiation therapy on 12/10/2016 with Cisplatin 40 mg/m2 weekly and finished the 7th cycle on 02/04/2017. Treatment was complicated by neutropenia and mucositis, which prevented the patient from eating. and she had temporary PEG tube for parenteral feeding during treatment. She has had PEG tube removed and is eating by mouth but has residual slight pain R jaw with decreased ability to open her mouth due to radiation injury. She had a PET/CT 05/05/2017 which showed no activity in the mouth/neck but slight activity in the R upper lobe SUV 1.9. CT neck and chest on 08/04/2017 showed no dominant mass or nodes in the neck, interstitial infiltrates RUL. Had CT chest and neck on 08/04/2018 showed right post radiation fibrosis, T12 compression fracture which she underwent vertebroplasty for treatment by Dr. Pang. Progress of Wound: This patient presents to the office today for her 3rd hyperbaric oxygen therapy session of 30 scheduled. Treatment is to be administered for delayed radiation injury/osteonecrosis. Tolerance of hyperbaric oxygen therapy: Hyperbaric oxygen treatment was provided as per the facility's protocol at 2.0 MAURIZIO in 100% oxygen for 90 minutes without air breaks. The patient tolerated hyperbaric oxygen well, without complications or complaints. Upon emergence of the hyperbaric chamber, the patient's vital signs remained stable. Objective Data Objective Data Vital Signs: Vital Signs Temp Pulse Resp BP 96.3 F L 82 14 135/74 H 03/26/24 13:25 03/26/24 13:25 03/26/24 13:25 03/26/24 13:25 Weight: 140 lb Body Mass Index (BMI) 27.3 Exam Physical Exam Const alert, oriented x3 and no apparent distress General Appearance: cooperative HEENT normocephalic HEENT Narrative: Bilateral TM with tympanostomy tubes in place. TM clear. There is some bloody drainage in her right ear canal. 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
[2024-03-30 13:31] VITALS: BP 123/67; BP 157/82; PULSE 69; PULSE 80; RESP 14; RESP 16; TEMP 36.2; TEMP 36.6
--- NOTE | 2024-03-30 18:13 | HBO.PN.PCM_ITS ---
History of Present Illness Date of Service: 03/30/24 Chief Complaint: Hyperbaric Oxygen Treatment for Osteoradionecrosis/Delayed Radiation Injury History of Wound: Farideh is a pleasant 74 yo woman that presented to the wound healing center for consultation and evaluation for hyperbaric oxygen treatment for delayed radiation injury/osteoradionecrosis. She was referred for treatment by Dr. Gonzáles, her dentist who is planning to surgical extraction of 2 teeth on the right upper/lower jaw and in preparation of this procedure due to her previous radiation and evidence of soft tissue radionecrosis and osteoradionecrosis of her jaw on exam requests treatment with hyperbaric oxygen in order to prepare the tissue for surgical procedure and promote healing. She relays that she has limited movement of her jaw and xerostomia as well as right jaw pain since her radiation treatment as well as dental issues. Her radiation treatment was to her right neck and subclavian region. She was treated with 200 cGy over a total of 59 days to her right neck with a total dose of 7,000 cGy and 180 cGy to her right subclavian for a total dose of 4,500 cGy over a total of 34 days over the time period of 12/10/2016 to 02/07/2017. 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 She had direct laryngoscopy, right tonsillectomy, and fine needle aspiration of the right neck mass on 10/25/[address] Graves. 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 Cytology of the right neck mass also showed squamous cell carcinoma. PET CT scan on 11/20/2016 showed focal hypermetabolic activity in the right palatine tonsil and hypermetabolic activity in the right level II and level III nodes. She started combined chemotherapy and radiation therapy on 12/10/2016 with Cisplatin 40 mg/m2 weekly and finished the 7th cycle on 02/04/2017. Treatment was complicated by neutropenia and mucositis, which prevented the patient from eating. and she had temporary PEG tube for parenteral feeding during treatment. She has had PEG tube removed and is eating by mouth but has residual slight pain R jaw with decreased ability to open her mouth due to radiation injury. She had a PET/CT 05/05/2017 which showed no activity in the mouth/neck but slight activity in the R upper lobe SUV 1.9. CT neck and chest on 08/04/2017 showed no dominant mass or nodes in the neck, interstitial infiltrates RUL. Had CT chest and neck on 08/04/2018 showed right post radiation fibrosis, T12 compression fracture which she underwent vertebroplasty for treatment by Dr. Pang. Progress of Wound: This patient presents to the clinic today for her 4th hyperbaric oxygen therapy session of 30 scheduled. Treatment is to be administered for delayed radiation injury/osteonecrosis. Tolerance of hyperbaric oxygen therapy: Hyperbaric oxygen treatment was provided as per the facility's protocol at 2.0 MAURIZIO in 100% oxygen for 90 minutes without air breaks. The patient tolerated hyperbaric oxygen well, without complications or complaints. Upon emergence of the hyperbaric chamber, the patient's vital signs remained stable. She was discharged in good condition. Objective Data Objective Data Vital Signs: Vital Signs Temp Pulse Resp BP 97.9 F 80 16 157/82 H 03/30/24 13:31 03/30/24 13:31 03/30/24 13:31 03/30/24 13:31 Weight: 140 lb Body Mass Index (BMI) 27.3 Exam Physical Exam Const alert, oriented x3 and no apparent distress General Appearance: cooperative and well developed HEENT normocephalic, EAC's normal, TM's normal bilaterally and moist oral mucous membranes HEENT Narrative: Bilateral TM with tympanostomy tubes in place. TM clear. There is some bloody drainage in her right ear canal. 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
[2024-03-31 13:27] VITALS: BP 131/96; BP 149/71; PULSE 67; PULSE 78; RESP 13; RESP 14; TEMP 35.6; TEMP 35.8
--- NOTE | 2024-03-31 17:10 | HBO.PN.PCM_ITS ---
History of Present Illness Date of Service: 03/31/24 Chief Complaint: Hyperbaric Oxygen Treatment for Osteoradionecrosis/Delayed Radiation Injury History of Wound: Farideh is a pleasant 74 yo woman that presented to the wound healing center for consultation and evaluation for hyperbaric oxygen treatment for delayed radiation injury/osteoradionecrosis. She was referred for treatment by Dr. Gonzáles, her dentist who is planning to surgical extraction of 2 teeth on the right upper/lower jaw and in preparation of this procedure due to her previous radiation and evidence of soft tissue radionecrosis and osteoradionecrosis of her jaw on exam requests treatment with hyperbaric oxygen in order to prepare the tissue for surgical procedure and promote healing. She relays that she has limited movement of her jaw and xerostomia as well as right jaw pain since her radiation treatment as well as dental issues. Her radiation treatment was to her right neck and subclavian region. She was treated with 200 cGy over a total of 59 days to her right neck with a total dose of 7,000 cGy and 180 cGy to her right subclavian for a total dose of 4,500 cGy over a total of 34 days over the time period of 12/10/2016 to 02/07/2017. 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 She had direct laryngoscopy, right tonsillectomy, and fine needle aspiration of the right neck mass on 10/25/[address] Graves. 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 Cytology of the right neck mass also showed squamous cell carcinoma. PET CT scan on 11/20/2016 showed focal hypermetabolic activity in the right palatine tonsil and hypermetabolic activity in the right level II and level III nodes. She started combined chemotherapy and radiation therapy on 12/10/2016 with Cisplatin 40 mg/m2 weekly and finished the 7th cycle on 02/04/2017. Treatment was complicated by neutropenia and mucositis, which prevented the patient from eating. and she had temporary PEG tube for parenteral feeding during treatment. She has had PEG tube removed and is eating by mouth but has residual slight pain R jaw with decreased ability to open her mouth due to radiation injury. She had a PET/CT 05/05/2017 which showed no activity in the mouth/neck but slight activity in the R upper lobe SUV 1.9. CT neck and chest on 08/04/2017 showed no dominant mass or nodes in the neck, interstitial infiltrates RUL. Had CT chest and neck on 08/04/2018 showed right post radiation fibrosis, T12 compression fracture which she underwent vertebroplasty for treatment by Dr. Pang. Progress of Wound: This patient presents to the clinic today for her 5th hyperbaric oxygen therapy session of 30 scheduled. Treatment is to be administered for delayed radiation injury/osteonecrosis. Tolerance of hyperbaric oxygen therapy: Hyperbaric oxygen treatment was provided as per the facility's protocol at 2.0 MAURIZIO in 100% oxygen for 90 minutes without air breaks. The patient tolerated hyperbaric oxygen well, without complications or complaints. Upon emergence of the hyperbaric chamber, the patient's vital signs remained stable. She was discharged in good condition. Objective Data Objective Data Vital Signs: Vital Signs Temp Pulse Resp BP 96.0 F L 78 14 131/96 H 03/31/24 13:27 03/31/24 13:27 03/31/24 13:27 03/31/24 13:27 Weight: 140 lb Body Mass Index (BMI) 27.3 Exam Physical Exam Const alert, oriented x3 and no apparent distress General Appearance: cooperative HEENT normocephalic HEENT Narrative: Bilateral TM with tympanostomy tubes in place. TM clear. Right jaw is slightly swollen tender to palpation. 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
--- NOTE | 2024-04-01 13:19 | HBO.PN.PCM_ITS ---
History of Present Illness Date of Service: 04/01/24 Chief Complaint: Hyperbaric Oxygen Treatment for Osteoradionecrosis/Delayed Radiation Injury History of Wound: Farideh is a pleasant 74 yo woman that presented to the wound healing center for consultation and evaluation for hyperbaric oxygen treatment for delayed radiation injury/osteoradionecrosis. She was referred for treatment by Dr. Gonzáles, her dentist who is planning to surgical extraction of 2 teeth on the right upper/lower jaw and in preparation of this procedure due to her previous radiation and evidence of soft tissue radionecrosis and osteoradionecrosis of her jaw on exam requests treatment with hyperbaric oxygen in order to prepare the tissue for surgical procedure and promote healing. She relays that she has limited movement of her jaw and xerostomia as well as right jaw pain since her radiation treatment as well as dental issues. Her radiation treatment was to her right neck and subclavian region. She was treated with 200 cGy over a total of 59 days to her right neck with a total dose of 7,000 cGy and 180 cGy to her right subclavian for a total dose of 4,500 cGy over a total of 34 days over the time period of 12/10/2016 to 02/07/2017. 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 She had direct laryngoscopy, right tonsillectomy, and fine needle aspiration of the right neck mass on 10/25/[address] Graves. 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 Cytology of the right neck mass also showed squamous cell carcinoma. PET CT scan on 11/20/2016 showed focal hypermetabolic activity in the right palatine tonsil and hypermetabolic activity in the right level II and level III nodes. She started combined chemotherapy and radiation therapy on 12/10/2016 with Cisplatin 40 mg/m2 weekly and finished the 7th cycle on 02/04/2017. Treatment was complicated by neutropenia and mucositis, which prevented the patient from eating. and she had temporary PEG tube for parenteral feeding during treatment. She has had PEG tube removed and is eating by mouth but has residual slight pain R jaw with decreased ability to open her mouth due to radiation injury. She had a PET/CT 05/05/2017 which showed no activity in the mouth/neck but slight activity in the R upper lobe SUV 1.9. CT neck and chest on 08/04/2017 showed no dominant mass or nodes in the neck, interstitial infiltrates RUL. Had CT chest and neck on 08/04/2018 showed right post radiation fibrosis, T12 compression fracture which she underwent vertebroplasty for treatment by Dr. Pang. Subjective Subjective This patient presents to the clinic today for her 6th hyperbaric oxygen therapy session of 30 scheduled. Treatment is to be administered for delayed radiation injury/osteonecrosis. Tolerance of hyperbaric oxygen therapy: Hyperbaric oxygen treatment was provided as per the facility's protocol at 2.0 MAURIZIO in 100% oxygen for 90 minutes without air breaks. The patient tolerated hyperbaric oxygen well, without complications or complaints. Upon emergence of the hyperbaric chamber, the patient's vital signs remained stable. She was discharged in good condition. Objective Data Objective Data Vital Signs: Vital Signs Temp Pulse Resp BP 96.0 F L 78 14 131/96 H 03/31/24 13:27 03/31/24 13:27 03/31/24 13:27 03/31/24 13:27 Weight: 140 lb Body Mass Index (BMI) 27.3 Exam Physical Exam Const alert, oriented x3 and no apparent distress General Appearance: cooperative HEENT normocephalic HEENT Narrative: Bilateral TM with tympanostomy tubes in place. TM clear. 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
[2024-04-01 13:35] VITALS: BP 144/77; BP 147/67; PULSE 69; PULSE 77; RESP 12; RESP 13; TEMP 36.9
== END 2024-04-02 23:59 | disposition home or self-care (01) ==
LOC: WC 13:00
PROVIDERS: PCP Family Medicine; Referring Provider Family Medicine; Visit Provider Family Medicine
DX: M27.2 Inflammatory conditions of jaws (principal); L59.8 Other specified disorders of the skin and subcutaneous tissue related to radiation; K20.80 Other esophagitis without bleeding; Y84.2 Radiological procedure and radiotherapy as the cause of abnormal reaction of the patient, or of later complication, without mention of misadventure at the time of the procedure; R68.84 Jaw pain; I10 Essential (primary) hypertension; K11.7 Disturbances of salivary secretion; Z79.899 Other long term (current) drug therapy; Z92.3 Personal history of irradiation; Z92.21 Personal history of antineoplastic chemotherapy; Z85.819 Personal history of malignant neoplasm of unspecified site of lip, oral cavity, and pharynx
CPT/HCPCS: 71046; 99183; 99214; G0277; G0463

== ENCOUNTER 2024-04-28 13:00 | Outpatient (RCR) | payer MEDICARE, SELFPAY ==
[2024-04-03 01:17] VITALS: BP 144/77; BP 147/67; BP 154/85; PULSE 69; PULSE 75; PULSE 77; RESP 12; RESP 13; TEMP 36.8; TEMP 36.9; BMI 27.3
--- NOTE | 2024-04-05 14:46 | PCM.HBO.PN ---
History of Present Illness Date of Service: 04/05/24 Chief Complaint: Hyperbaric Oxygen Treatment for Osteoradionecrosis/Delayed Radiation Injury History of Wound: Farideh is a pleasant 74 yo woman that presented to the wound healing center for consultation and evaluation for hyperbaric oxygen treatment for delayed radiation injury/osteoradionecrosis. She was referred for treatment by Dr. Gonzáles, her dentist who is planning surgical extraction of 2 teeth on the right upper/lower jaw and in preparation of this procedure due to her previous radiation and evidence of soft tissue radionecrosis and osteoradionecrosis of her jaw on exam. He requests treatment with hyperbaric oxygen in order to prepare the tissue for surgical procedure and to promote healing. She relays that she has limited movement of her jaw and xerostomia as well as right jaw pain since her radiation treatment as well as dental issues. Her radiation treatment was to her right neck and subclavian region. She was treated with 200 cGy over a total of 59 days to her right neck with a total dose of 7,000 cGy and 180 cGy to her right subclavian for a total dose of 4,500 cGy over a total of 34 days over the time period of 12/10/2016 to 02/07/2017. 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 She had direct laryngoscopy, right tonsillectomy, and fine needle aspiration of the right neck mass on 10/25/[address] Graves. 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 Cytology of the right neck mass also showed squamous cell carcinoma. PET CT scan on 11/20/2016 showed focal hypermetabolic activity in the right palatine tonsil and hypermetabolic activity in the right level II and level III nodes. She started combined chemotherapy and radiation therapy on 12/10/2016 with Cisplatin 40 mg/m2 weekly and finished the 7th cycle on 02/04/2017. Treatment was complicated by neutropenia and mucositis, which prevented the patient from eating. and she had temporary PEG tube for parenteral feeding during treatment. She has had PEG tube removed and is eating by mouth but has residual slight pain R jaw with decreased ability to open her mouth due to radiation injury. She had a PET/CT 05/05/2017 which showed no activity in the mouth/neck but slight activity in the R upper lobe SUV 1.9. CT neck and chest on 08/04/2017 showed no dominant mass or nodes in the neck, interstitial infiltrates RUL. Had CT chest and neck on 08/04/2018 showed right post radiation fibrosis, T12 compression fracture which she underwent vertebroplasty for treatment by Dr. Pang. Most recently, the experienced acute exacerbation of pain in her right jaw, causing her to suspect an additional acute injury to the area. She has been evaluated by her dentist, Dr. Gonzáles, in recent days, who has confirmed the presence of a fractured right mandible, for which the patient is to be referred to a specialist for further evaluation and management, which could require surgical intervention. Objective Data Objective Data The patient presented today for her seventh hyperbaric oxygen therapy session, of an expected 30 such sessions. Treatment was administered for delayed radiation injury/osteonecrosis. Tolerance of HBO therapy: Hyperbaric oxygen therapy was administered as per the facility protocol. Hyperbaric oxygen therapy was administered at 2 sukh at 100% oxygen for 90 minutes without air breaks. Patient tolerated hyperbaric oxygen therapy well, without complaints or complications. The patient's vital signs remained stable following her hyperbaric oxygen therapy session, and she was discharged in good condition. Vital Signs: Vital Signs Temp Pulse Resp BP 98.4 F 77 12 144/77 H 04/03/24 01:17 04/03/24 01:17 04/03/24 01:17 04/03/24 01:17 Weight: 140 lb Body Mass Index (BMI) 27.3 Exam Physical Exam Const alert, oriented x3 and no apparent distress General Appearance: cooperative and well developed HEENT normocephalic HEENT Narrative: Bilateral TM with tympanostomy tubes in place. TM clear. 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 We will await recommendations of a specialist with regard to the patient's recent mandibular fracture.
[2024-04-05 15:21] VITALS: BP 135/80; BP 155/89; PULSE 110; PULSE 80; RESP 14; RESP 16; TEMP 36.2; TEMP 36.5
[2024-04-06 13:23] VITALS: BP 108/79; BP 134/66; PULSE 71; PULSE 93; RESP 14; TEMP 36.2; TEMP 36.3
--- NOTE | 2024-04-06 15:31 | PCM.HBO.PN ---
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 She was referred for treatment by Dr. Gonzáles, her dentist who is planning surgical extraction of 2 teeth on the right upper/lower jaw and in preparation of this procedure due to her previous radiation and evidence of soft tissue radionecrosis and osteoradionecrosis of her jaw on exam. He requests treatment with hyperbaric oxygen in order to prepare the tissue for surgical procedure and to promote healing. She relays that she has limited movement of her jaw and xerostomia as well as right jaw pain since her radiation treatment as well as dental issues. Her radiation treatment was to her right neck and subclavian region. She was treated with 200 cGy over a total of 59 days to her right neck with a total dose of 7,000 cGy and 180 cGy to her right subclavian for a total dose of 4,500 cGy over a total of 34 days over the time period of 12/10/2016 to 02/07/2017. 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 She had direct laryngoscopy, right tonsillectomy, and fine needle aspiration of the right neck mass on 10/25/[address] Graves. 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 Cytology of the right neck mass also showed squamous cell carcinoma. PET CT scan on 11/20/2016 showed focal hypermetabolic activity in the right palatine tonsil and hypermetabolic activity in the right level II and level III nodes. She started combined chemotherapy and radiation therapy on 12/10/2016 with Cisplatin 40 mg/m2 weekly and finished the 7th cycle on 02/04/2017. Treatment was complicated by neutropenia and mucositis, which prevented the patient from eating. and she had temporary PEG tube for parenteral feeding during treatment. She has had PEG tube removed and is eating by mouth but has residual slight pain R jaw with decreased ability to open her mouth due to radiation injury. She had a PET/CT 05/05/2017 which showed no activity in the mouth/neck but slight activity in the R upper lobe SUV 1.9. CT neck and chest on 08/04/2017 showed no dominant mass or nodes in the neck, interstitial infiltrates RUL. Had CT chest and neck on 08/04/2018 showed right post radiation fibrosis, T12 compression fracture which she underwent vertebroplasty for treatment by Dr. Pang. Most recently, the experienced acute exacerbation of pain in her right jaw, causing her to suspect an additional acute injury to the area. She has been evaluated by her dentist, Dr. Gonzáles, in recent days, who has confirmed the presence of a fractured right mandible, for which the patient is to be referred to a specialist for further evaluation and management, which could require surgical intervention. Objective Data Objective Data Vital Signs: Vital Signs Temp Pulse Resp BP 97.2 F L 93 14 134/66 H 04/06/24 13:23 04/06/24 13:23 04/06/24 13:23 04/06/24 13:23 Weight: 140 lb Body Mass Index (BMI) 27.3
--- NOTE | 2024-04-06 15:49 | PCM.HBO.PN ---
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 She was referred for treatment by Dr. Gonzáles, her dentist who is planning surgical extraction of 2 teeth on the right upper/lower jaw and in preparation of this procedure due to her previous radiation and evidence of soft tissue radionecrosis and osteoradionecrosis of her jaw on exam. He requests treatment with hyperbaric oxygen in order to prepare the tissue for surgical procedure and to promote healing. She relays that she has limited movement of her jaw and xerostomia as well as right jaw pain since her radiation treatment as well as dental issues. Her radiation treatment was to her right neck and subclavian region. She was treated with 200 cGy over a total of 59 days to her right neck with a total dose of 7,000 cGy and 180 cGy to her right subclavian for a total dose of 4,500 cGy over a total of 34 days over the time period of 12/10/2016 to 02/07/2017. 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 She had direct laryngoscopy, right tonsillectomy, and fine needle aspiration of the right neck mass on 10/25/[address] Graves. 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 Cytology of the right neck mass also showed squamous cell carcinoma. PET CT scan on 11/20/2016 showed focal hypermetabolic activity in the right palatine tonsil and hypermetabolic activity in the right level II and level III nodes. She started combined chemotherapy and radiation therapy on 12/10/2016 with Cisplatin 40 mg/m2 weekly and finished the 7th cycle on 02/04/2017. Treatment was complicated by neutropenia and mucositis, which prevented the patient from eating. and she had temporary PEG tube for parenteral feeding during treatment. She has had PEG tube removed and is eating by mouth but has residual slight pain R jaw with decreased ability to open her mouth due to radiation injury. She had a PET/CT 05/05/2017 which showed no activity in the mouth/neck but slight activity in the R upper lobe SUV 1.9. CT neck and chest on 08/04/2017 showed no dominant mass or nodes in the neck, interstitial infiltrates RUL. Had CT chest and neck on 08/04/2018 showed right post radiation fibrosis, T12 compression fracture which she underwent vertebroplasty for treatment by Dr. Pang. Most recently, the experienced acute exacerbation of pain in her right jaw, causing her to suspect an additional acute injury to the area. She has been evaluated by her dentist, Dr. Gonzáles, in recent days, who has confirmed the presence of a fractured right mandible, for which the patient is to be referred to a specialist for further evaluation and management, which could require surgical intervention. Objective Data Objective Data Vital Signs: Vital Signs Temp Pulse Resp BP 97.2 F L 93 14 134/66 H 04/06/24 13:23 04/06/24 13:23 04/06/24 13:23 04/06/24 13:23 Weight: 140 lb Body Mass Index (BMI) 27.3 Exam Physical Exam Const alert, oriented x3 and no apparent distress General Appearance: comfortable HEENT normocephalic HEENT Narrative: +scar R side of nose Eyes conjunctivae normal and no scleral icterus Neck full ROM, no lymphadenopathy and supple Neck Narrative: special attention paid to right anterior cervical area, no palpable mass, lymphadenopathy I requested patient palpate the area and she too states I don't feel it any more Chest inspection of chest normal Resp normal respiratory effort, no use of accessory muscles and clear to auscultation bilaterally Cardio regular rate, regular rhythm, S1 normal heart sound, S2 normal heart sound and no murmurs GI normal to inspection, nondistended, normoactive bowel sounds no CVA tenderness Back/Spine no CVA tenderness Extremity normal to inspection and no clubbing, cyanosis or edema Skin no rashes or lesions noted Neuro oriented x3, CN's II-XII intact bilaterally, moves all extremities and no focal motor deficits Psych mental status grossly normal
--- NOTE | 2024-04-06 15:51 | PCM.HBO.PN ---
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 She was referred for treatment by Dr. Gonzáles, her dentist who is planning to surgical extraction of 2 teeth on the right upper/lower jaw and in preparation of this procedure due to her previous radiation and evidence of soft tissue radionecrosis and osteoradionecrosis of her jaw on exam requests treatment with hyperbaric oxygen in order to prepare the tissue for surgical procedure and promote healing. She relays that she has limited movement of her jaw and xerostomia as well as right jaw pain since her radiation treatment as well as dental issues. Her radiation treatment was to her right neck and subclavian region. She was treated with 200 cGy over a total of 59 days to her right neck with a total dose of 7,000 cGy and 180 cGy to her right subclavian for a total dose of 4,500 cGy over a total of 34 days over the time period of 12/10/2016 to 02/07/2017. 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 She had direct laryngoscopy, right tonsillectomy, and fine needle aspiration of the right neck mass on 10/25/[address] Graves. 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 Cytology of the right neck mass also showed squamous cell carcinoma. PET CT scan on 11/20/2016 showed focal hypermetabolic activity in the right palatine tonsil and hypermetabolic activity in the right level II and level III nodes. She started combined chemotherapy and radiation therapy on 12/10/2016 with Cisplatin 40 mg/m2 weekly and finished the 7th cycle on 02/04/2017. Treatment was complicated by neutropenia and mucositis, which prevented the patient from eating. and she had temporary PEG tube for parenteral feeding during treatment. She has had PEG tube removed and is eating by mouth but has residual slight pain R jaw with decreased ability to open her mouth due to radiation injury. She had a PET/CT 05/05/2017 which showed no activity in the mouth/neck but slight activity in the R upper lobe SUV 1.9. CT neck and chest on 08/04/2017 showed no dominant mass or nodes in the neck, interstitial infiltrates RUL. Had CT chest and neck on 08/04/2018 showed right post radiation fibrosis, T12 compression fracture which she underwent vertebroplasty for treatment by Dr. Pang. Objective Data Objective Data Vital Signs: Vital Signs Temp Pulse Resp BP 97.2 F L 93 14 134/66 H 04/06/24 13:23 04/06/24 13:23 04/06/24 13:23 04/06/24 13:23 Weight: 140 lb Body Mass Index (BMI) 27.3
--- NOTE | 2024-04-07 12:46 | HBO.PN.PCM_ITS ---
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 She was referred for treatment by Dr. Gonzáles, her dentist who is planning to surgical extraction of 2 teeth on the right upper/lower jaw and in preparation of this procedure due to her previous radiation and evidence of soft tissue radionecrosis and osteoradionecrosis of her jaw on exam requests treatment with hyperbaric oxygen in order to prepare the tissue for surgical procedure and promote healing. She relays that she has limited movement of her jaw and xerostomia as well as right jaw pain since her radiation treatment as well as dental issues. Her radiation treatment was to her right neck and subclavian region. She was treated with 200 cGy over a total of 59 days to her right neck with a total dose of 7,000 cGy and 180 cGy to her right subclavian for a total dose of 4,500 cGy over a total of 34 days over the time period of 12/10/2016 to 02/07/2017. 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 She had direct laryngoscopy, right tonsillectomy, and fine needle aspiration of the right neck mass on 10/25/[address] Graves. 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 Cytology of the right neck mass also showed squamous cell carcinoma. PET CT scan on 11/20/2016 showed focal hypermetabolic activity in the right palatine tonsil and hypermetabolic activity in the right level II and level III nodes. She started combined chemotherapy and radiation therapy on 12/10/2016 with Cisplatin 40 mg/m2 weekly and finished the 7th cycle on 02/04/2017. Treatment was complicated by neutropenia and mucositis, which prevented the patient from eating. and she had temporary PEG tube for parenteral feeding during treatment. She has had PEG tube removed and is eating by mouth but has residual slight pain R jaw with decreased ability to open her mouth due to radiation injury. She had a PET/CT 05/05/2017 which showed no activity in the mouth/neck but slight activity in the R upper lobe SUV 1.9. CT neck and chest on 08/04/2017 showed no dominant mass or nodes in the neck, interstitial infiltrates RUL. Had CT chest and neck on 08/04/2018 showed right post radiation fibrosis, T12 compression fracture which she underwent vertebroplasty for treatment by Dr. Pang. Most recently, the patient experienced acute exacerbation of pain in her right jaw, causing her to suspect an additional acute injury to the area. She was evaluated by her dentist, Dr. Gonzáles, in recent days, who confirmed the presence of a fractured right mandible, for which the patient is to be referred to a specialist at the [facility], and could possibly require surgical intervention. Objective Data Objective Data The patient presented today for her 8th hyperbaric oxygen therapy session, of an expected 30 such sessions. Treatment was administered for delayed radiation injury/osteonecrosis. Tolerance of HBO therapy: Hyperbaric oxygen therapy was administered as per the facility protocol. Hyperbaric oxygen therapy was administered at 2 sukh at 100% oxygen for 90 minutes without air breaks. The patient tolerated hyperbaric oxygen therapy well, without complaints or complications. The patient's vital signs remained stable following her hyperbaric oxygen therapy session, and she was discharged in good condition. Vital Signs: Vital Signs Temp Pulse Resp BP 97.2 F L 93 14 134/66 H 04/06/24 13:23 04/06/24 13:23 04/06/24 13:23 04/06/24 13:23 Weight: 140 lb Body Mass Index (BMI) 27.3 Exam Physical Exam Const alert, oriented x3 and no apparent distress General Appearance: cooperative, comfortable and well developed HEENT normocephalic HEENT Narrative: +scar R side of nose Eyes EOMs intact bilaterally Neck full ROM and supple General: trachea midline Chest inspection of chest normal Resp normal respiratory effort, no use of accessory muscles and clear to auscultation bilaterally Effort and Inspection: able to speak in complete sentences Extremity normal to inspection and no clubbing, cyanosis or edema Skin no rashes or lesions noted and no jaundice Neuro oriented x3, CN's II-XII intact bilaterally, moves all extremities and no focal motor deficits Speech: speech normal Psych mental status grossly normal and affect normal Appearance: grossly normal and well kempt Speech: normal speech Assessment/Plan Assessment/Plan (1) Osteonecrosis of temporomandibular joint: CODE(S): M87.88 - Other osteonecrosis, other site (2) 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 We will await recommendations of a specialist with regard to the patient's recent mandibular fracture.
--- NOTE | 2024-04-07 13:00 | PCM.HBO.PN ---
History of Present Illness Date of Service: 04/07/24 Chief Complaint: Hyperbaric Oxygen Treatment for Osteoradionecrosis/Delayed Radiation Injury History of Wound: Farideh is a pleasant 74 yo woman that presented to the wound healing center for consultation and evaluation for hyperbaric oxygen treatment for delayed radiation injury/osteoradionecrosis. She was referred for treatment by Dr. Gonzáles, her dentist who is planning to surgical extraction of 2 teeth on the right upper/lower jaw and in preparation of this procedure due to her previous radiation and evidence of soft tissue radionecrosis and osteoradionecrosis of her jaw on exam requests treatment with hyperbaric oxygen in order to prepare the tissue for surgical procedure and promote healing. She relays that she has limited movement of her jaw and xerostomia as well as right jaw pain since her radiation treatment as well as dental issues. Her radiation treatment was to her right neck and subclavian region. She was treated with 200 cGy over a total of 59 days to her right neck with a total dose of 7,000 cGy and 180 cGy to her right subclavian for a total dose of 4,500 cGy over a total of 34 days over the time period of 12/10/2016 to 02/07/2017. 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 She had direct laryngoscopy, right tonsillectomy, and fine needle aspiration of the right neck mass on 10/25/[address] Graves. 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 Cytology of the right neck mass also showed squamous cell carcinoma. PET CT scan on 11/20/2016 showed focal hypermetabolic activity in the right palatine tonsil and hypermetabolic activity in the right level II and level III nodes. She started combined chemotherapy and radiation therapy on 12/10/2016 with Cisplatin 40 mg/m2 weekly and finished the 7th cycle on 02/04/2017. Treatment was complicated by neutropenia and mucositis, which prevented the patient from eating. and she had temporary PEG tube for parenteral feeding during treatment. She has had PEG tube removed and is eating by mouth but has residual slight pain R jaw with decreased ability to open her mouth due to radiation injury. She had a PET/CT 05/05/2017 which showed no activity in the mouth/neck but slight activity in the R upper lobe SUV 1.9. CT neck and chest on 08/04/2017 showed no dominant mass or nodes in the neck, interstitial infiltrates RUL. Had CT chest and neck on 08/04/2018 showed right post radiation fibrosis, T12 compression fracture which she underwent vertebroplasty for treatment by Dr. Pang. Most recently, the patient experienced acute exacerbation of pain in her right jaw, causing her to suspect an additional acute injury to the area. She was evaluated by her dentist, Dr. Gonzáles, in recent days, who confirmed the presence of a fractured right mandible, for which the patient is to be referred to a specialist at the [facility], and could possibly require surgical intervention. Progress of Wound: The patient presented today for her 9th hyperbaric oxygen therapy session, of an expected 30 such sessions. Treatment was administered for delayed radiation injury/osteonecrosis. Tolerance of HBO therapy: Hyperbaric oxygen therapy was administered as per the facility protocol. Hyperbaric oxygen therapy was administered at 2 sukh at 100% oxygen for 90 minutes without air breaks. The patient tolerated hyperbaric oxygen therapy well, without complaints or complications. The patient's vital signs remained stable following her hyperbaric oxygen therapy session, and she was discharged in good condition. Objective Data Objective Data Vital Signs: Vital Signs Temp Pulse Resp BP 97.5 F L 88 18 135/81 H 04/07/24 13:58 04/07/24 13:58 04/07/24 13:58 04/07/24 13:58 Weight: 140 lb Body Mass Index (BMI) 27.3 Exam Physical Exam Const alert, oriented x3 and no apparent distress General Appearance: cooperative HEENT normocephalic Eyes PERRL Resp normal respiratory effort, no use of accessory muscles and clear to auscultation bilaterally Effort and Inspection: able to speak in complete sentences Cardio regular rate and regular rhythm Psych affect normal Charges/Coding Wound Center CF Procedures HBO Supervision: [id number] Hyperbaric Oxygen; supervision Assessment/Plan Assessment/Plan (1) Osteonecrosis of temporomandibular joint: CODE(S): M87.88 - Other osteonecrosis, other site (2) 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 We will await recommendations of a specialist with regard to the patient's recent mandibular fracture.
[2024-04-07 13:58] VITALS: BP 116/67; BP 135/81; PULSE 74; PULSE 88; RESP 14; RESP 18; TEMP 35.9; TEMP 36.4
[2024-04-08 13:48] VITALS: BP 129/77; BP 166/79; PULSE 71; PULSE 95; RESP 14; RESP 18; TEMP 36.1; TEMP 36.6
--- NOTE | 2024-04-08 16:04 | PCM.HBO.PN ---
History of Present Illness Date of Service: 04/08/24 Chief Complaint: Hyperbaric Oxygen Treatment for Osteoradionecrosis/Delayed Radiation Injury History of Wound: Farideh is a pleasant 74 yo woman that presented to the wound healing center for consultation and evaluation for hyperbaric oxygen treatment for delayed radiation injury/osteoradionecrosis. She was referred for treatment by Dr. Gonzáles, her dentist who is planning to surgical extraction of 2 teeth on the right upper/lower jaw and in preparation of this procedure due to her previous radiation and evidence of soft tissue radionecrosis and osteoradionecrosis of her jaw on exam requests treatment with hyperbaric oxygen in order to prepare the tissue for surgical procedure and promote healing. She relays that she has limited movement of her jaw and xerostomia as well as right jaw pain since her radiation treatment as well as dental issues. Her radiation treatment was to her right neck and subclavian region. She was treated with 200 cGy over a total of 59 days to her right neck with a total dose of 7,000 cGy and 180 cGy to her right subclavian for a total dose of 4,500 cGy over a total of 34 days over the time period of 12/10/2016 to 02/07/2017. 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 She had direct laryngoscopy, right tonsillectomy, and fine needle aspiration of the right neck mass on 10/25/[address] rGaves. 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 Cytology of the right neck mass also showed squamous cell carcinoma. PET CT scan on 11/20/2016 showed focal hypermetabolic activity in the right palatine tonsil and hypermetabolic activity in the right level II and level III nodes. She started combined chemotherapy and radiation therapy on 12/10/2016 with Cisplatin 40 mg/m2 weekly and finished the 7th cycle on 02/04/2017. Treatment was complicated by neutropenia and mucositis, which prevented the patient from eating. and she had temporary PEG tube for parenteral feeding during treatment. She has had PEG tube removed and is eating by mouth but has residual slight pain R jaw with decreased ability to open her mouth due to radiation injury. She had a PET/CT 05/05/2017 which showed no activity in the mouth/neck but slight activity in the R upper lobe SUV 1.9. CT neck and chest on 08/04/2017 showed no dominant mass or nodes in the neck, interstitial infiltrates RUL. Had CT chest and neck on 08/04/2018 showed right post radiation fibrosis, T12 compression fracture which she underwent vertebroplasty for treatment by Dr. Pang. Most recently, the patient experienced acute exacerbation of pain in her right jaw, causing her to suspect an additional acute injury to the area. She was evaluated by her dentist, Dr. Gonzáles, in recent days, who confirmed the presence of a fractured right mandible, for which the patient is to be referred to a specialist at the [facility], and could possibly require surgical intervention. Progress of Wound: The patient presented today for her 10th hyperbaric oxygen therapy session, of an expected 30 such sessions. Treatment was administered for delayed radiation injury/osteonecrosis. Tolerance of HBO therapy: Hyperbaric oxygen therapy was administered as per the facility protocol. Hyperbaric oxygen therapy was administered at 2 sukh at 100% oxygen for 90 minutes without air breaks. The patient tolerated hyperbaric oxygen therapy well, without complaints or complications. The patient's vital signs remained stable following her hyperbaric oxygen therapy session, and she was discharged in good condition. Objective Data Objective Data Vital Signs: Vital Signs Temp Pulse Resp BP 97 F L 95 18 166/79 H 04/08/24 13:48 04/08/24 13:48 04/08/24 13:48 04/08/24 13:48 Weight: 140 lb Body Mass Index (BMI) 27.3 Exam Physical Exam Const alert, oriented x3 and no apparent distress General Appearance: cooperative HEENT normocephalic HEENT Narrative: Bilateral TM with tympanostomy tubes in place. TM clear. 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 We will await recommendations of a specialist with regard to the patient's recent mandibular fracture.
--- NOTE | 2024-04-14 13:24 | WC ---
Pt came for HBO session and had an incontinence issue prior to getting in the chamber. Pt then refused the treatment and will attempt again tomorrow.
[2024-04-15 13:47] VITALS: BP 147/79; BP 152/79; PULSE 70; PULSE 81; RESP 14; TEMP 36.8; TEMP 37
--- NOTE | 2024-04-15 16:49 | HBO.PN.PCM_ITS ---
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 She was referred for treatment by Dr. Gonzáles, her dentist who is planning to surgical extraction of 2 teeth on the right upper/lower jaw and in preparation of this procedure due to her previous radiation and evidence of soft tissue radionecrosis and osteoradionecrosis of her jaw on exam requests treatment with hyperbaric oxygen in order to prepare the tissue for surgical procedure and promote healing. She relays that she has limited movement of her jaw and xerostomia as well as right jaw pain since her radiation treatment as well as dental issues. Her radiation treatment was to her right neck and subclavian region. She was treated with 200 cGy over a total of 59 days to her right neck with a total dose of 7,000 cGy and 180 cGy to her right subclavian for a total dose of 4,500 cGy over a total of 34 days over the time period of 12/10/2016 to 02/07/2017. 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 She had direct laryngoscopy, right tonsillectomy, and fine needle aspiration of the right neck mass on 10/25/[address] Graves. 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 Cytology of the right neck mass also showed squamous cell carcinoma. PET CT scan on 11/20/2016 showed focal hypermetabolic activity in the right palatine tonsil and hypermetabolic activity in the right level II and level III nodes. She started combined chemotherapy and radiation therapy on 12/10/2016 with Cisplatin 40 mg/m2 weekly and finished the 7th cycle on 02/04/2017. Treatment was complicated by neutropenia and mucositis, which prevented the patient from eating. and she had temporary PEG tube for parenteral feeding during treatment. She has had PEG tube removed and is eating by mouth but has residual slight pain R jaw with decreased ability to open her mouth due to radiation injury. She had a PET/CT 05/05/2017 which showed no activity in the mouth/neck but slight activity in the R upper lobe SUV 1.9. CT neck and chest on 08/04/2017 showed no dominant mass or nodes in the neck, interstitial infiltrates RUL. Had CT chest and neck on 08/04/2018 showed right post radiation fibrosis, T12 compression fracture which she underwent vertebroplasty for treatment by Dr. Pang. Most recently, the patient experienced acute exacerbation of pain in her right jaw, causing her to suspect an additional acute injury to the area. She was evaluated by her dentist, Dr. Gonzáles, in recent days, who confirmed the presence of a fractured right mandible, for which the patient is to be referred to a specialist at the [facility], and could possibly require surgical intervention. Progress of Wound: The patient presented today for her 11th hyperbaric oxygen therapy session, of an expected 30 such sessions. Treatment was administered for delayed radiation injury/osteonecrosis. She missed the past few days due to having an episode of colitis. Tolerance of HBO therapy: Hyperbaric oxygen therapy was administered as per the facility protocol. Hyperbaric oxygen therapy was administered at 2 sukh at 100% oxygen for 90 minutes without air breaks. The patient tolerated hyperbaric oxygen therapy well, without complaints or complications. The patient's vital signs remained stable following her hyperbaric oxygen therapy session, and she was discharged in good condition. Objective Data Objective Data Vital Signs: Vital Signs Temp Pulse Resp BP 98.6 F 81 14 147/79 H 04/15/24 13:47 04/15/24 13:47 04/15/24 13:47 04/15/24 13:47 Weight: 140 lb Body Mass Index (BMI) 27.3 Exam Physical Exam Const alert, oriented x3 and no apparent distress General Appearance: cooperative HEENT normocephalic HEENT Narrative: Bilateral TM with tympanostomy tubes in place. TM clear. Right jaw is mildly swollen today. 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 She is going to [facility] tomorrow to be evaluated for her recent mandibular fracture.
[2024-04-20 15:32] VITALS: BP 125/74; BP 155/75; PULSE 71; PULSE 89; RESP 13; RESP 14; TEMP 36.9
--- NOTE | 2024-04-20 17:07 | PCM.HBO.PN ---
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 She was referred for treatment by Dr. Gonzáles, her dentist who is planning to surgical extraction of 2 teeth on the right upper/lower jaw and in preparation of this procedure due to her previous radiation and evidence of soft tissue radionecrosis and osteoradionecrosis of her jaw on exam requests treatment with hyperbaric oxygen in order to prepare the tissue for surgical procedure and promote healing. She relays that she has limited movement of her jaw and xerostomia as well as right jaw pain since her radiation treatment as well as dental issues. Her radiation treatment was to her right neck and subclavian region. She was treated with 200 cGy over a total of 59 days to her right neck with a total dose of 7,000 cGy and 180 cGy to her right subclavian for a total dose of 4,500 cGy over a total of 34 days over the time period of 12/10/2016 to 02/07/2017. 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 She had direct laryngoscopy, right tonsillectomy, and fine needle aspiration of the right neck mass on 10/25/[address] Graves. 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 Cytology of the right neck mass also showed squamous cell carcinoma. PET CT scan on 11/20/2016 showed focal hypermetabolic activity in the right palatine tonsil and hypermetabolic activity in the right level II and level III nodes. She started combined chemotherapy and radiation therapy on 12/10/2016 with Cisplatin 40 mg/m2 weekly and finished the 7th cycle on 02/04/2017. Treatment was complicated by neutropenia and mucositis, which prevented the patient from eating. and she had temporary PEG tube for parenteral feeding during treatment. She has had PEG tube removed and is eating by mouth but has residual slight pain R jaw with decreased ability to open her mouth due to radiation injury. She had a PET/CT 05/05/2017 which showed no activity in the mouth/neck but slight activity in the R upper lobe SUV 1.9. CT neck and chest on 08/04/2017 showed no dominant mass or nodes in the neck, interstitial infiltrates RUL. Had CT chest and neck on 08/04/2018 showed right post radiation fibrosis, T12 compression fracture which she underwent vertebroplasty for treatment by Dr. Pang. Most recently, the patient experienced acute exacerbation of pain in her right jaw, causing her to suspect an additional acute injury to the area. She was evaluated by her dentist, Dr. Gonzáles, in recent days, who confirmed the presence of a fractured right mandible, for which the patient has been referred to a specialist in [place], where it is anticipated that she is to undergo extraction of teeth and internal fixation of the fracture. Progress of Wound: The patient presented today for her 12th hyperbaric oxygen therapy session, of an expected 30 such sessions. Treatment was administered for delayed radiation injury/osteonecrosis. She missed the past few days due to consultation with an oral surgeon in [place]. Tolerance of HBO therapy: Hyperbaric oxygen therapy was administered as per the facility protocol. Hyperbaric oxygen therapy was administered at 2 sukh at 100% oxygen for 90 minutes without air breaks. The patient tolerated hyperbaric oxygen therapy well, without complaints or complications. The patient's vital signs remained stable following her hyperbaric oxygen therapy session, and she was discharged in good condition. Objective Data Objective Data Vital Signs: Vital Signs Temp Pulse Resp BP 98.4 F 89 14 155/75 H 04/20/24 15:32 04/20/24 15:32 04/20/24 15:32 04/20/24 15:32 Weight: 140 lb Body Mass Index (BMI) 27.3 Exam Physical Exam Const alert, oriented x3, no apparent distress and well nourished General Appearance: cooperative and well developed HEENT normocephalic HEENT Narrative: Bilateral TM with tympanostomy tubes in place. TM clear. Right jaw is mildly swollen today. 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: CODE(S): L59.8 - Other specified disorders of the skin and subcutaneous tissue related to radiation; Y84.2 - Radiological procedure and radiotherapy as the cause of abnormal reaction of the patient, or of later complication, without mention of misadventure at the time of the procedure (3) Mandibular fracture: CODE(S): S02.609A - Fracture of mandible, unspecified, initial encounter for closed fracture QUALIFIERS: Encounter type: initial encounter Fracture type: closed Laterality: right Mandible location: body Qualified Code(s): S02.601A - Fracture of unspecified part of body of right mandible, initial encounter for closed fracture PLAN: Plan The patient is tolerating and benefiting from hyperbaric oxygen therapy, which will be continued per the patient's medical plan. She has undergone consultation with a specialist at [facility], where it is anticipated that she is to undergo extraction of teeth and internal fixation of her right mandibular fracture in the near future.
[2024-04-21 15:48] VITALS: BP 130/71; BP 147/69; PULSE 69; PULSE 77; RESP 13; RESP 14; TEMP 36.6; TEMP 36.7
--- NOTE | 2024-04-21 16:34 | PCM.HBO.PN ---
History of Present Illness Date of Service: 04/21/24 Chief Complaint: Hyperbaric Oxygen Treatment for Osteoradionecrosis/Delayed Radiation Injury History of Wound: Farideh is a pleasant 74 yo woman that presented to the wound healing center for consultation and evaluation for hyperbaric oxygen treatment for delayed radiation injury/osteoradionecrosis. She was referred for treatment by Dr. Gonzáles, her dentist who is planning to surgical extraction of 2 teeth on the right upper/lower jaw and in preparation of this procedure due to her previous radiation and evidence of soft tissue radionecrosis and osteoradionecrosis of her jaw on exam requests treatment with hyperbaric oxygen in order to prepare the tissue for surgical procedure and promote healing. She relays that she has limited movement of her jaw and xerostomia as well as right jaw pain since her radiation treatment as well as dental issues. Her radiation treatment was to her right neck and subclavian region. She was treated with 200 cGy over a total of 59 days to her right neck with a total dose of 7,000 cGy and 180 cGy to her right subclavian for a total dose of 4,500 cGy over a total of 34 days over the time period of 12/10/2016 to 02/07/2017. 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 She had direct laryngoscopy, right tonsillectomy, and fine needle aspiration of the right neck mass on 10/25/[address] Graves. 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 Cytology of the right neck mass also showed squamous cell carcinoma. PET CT scan on 11/20/2016 showed focal hypermetabolic activity in the right palatine tonsil and hypermetabolic activity in the right level II and level III nodes. She started combined chemotherapy and radiation therapy on 12/10/2016 with Cisplatin 40 mg/m2 weekly and finished the 7th cycle on 02/04/2017. Treatment was complicated by neutropenia and mucositis, which prevented the patient from eating. and she had temporary PEG tube for parenteral feeding during treatment. She has had PEG tube removed and is eating by mouth but has residual slight pain R jaw with decreased ability to open her mouth due to radiation injury. She had a PET/CT 05/05/2017 which showed no activity in the mouth/neck but slight activity in the R upper lobe SUV 1.9. CT neck and chest on 08/04/2017 showed no dominant mass or nodes in the neck, interstitial infiltrates RUL. Had CT chest and neck on 08/04/2018 showed right post radiation fibrosis, T12 compression fracture which she underwent vertebroplasty for treatment by Dr. Pang. Most recently, the patient experienced acute exacerbation of pain in her right jaw, causing her to suspect an additional acute injury to the area. She was evaluated by her dentist, Dr. Gonzáles, in recent days, who confirmed the presence of a fractured right mandible, for which the patient has been referred to a specialist in [place], where it is anticipated that she is to undergo extraction of teeth and internal fixation of the fracture. Progress of Wound: The patient presented today for her 13th hyperbaric oxygen therapy session, of an expected 30 such sessions. Treatment was administered for delayed radiation injury/osteonecrosis. Tolerance of HBO therapy: Hyperbaric oxygen therapy was administered as per the facility protocol. Hyperbaric oxygen therapy was administered at 2 sukh at 100% oxygen for 90 minutes without air breaks. The patient tolerated hyperbaric oxygen therapy well, without complaints or complications. The patient's vital signs remained stable following her hyperbaric oxygen therapy session, and she was discharged in good condition. Objective Data Objective Data Vital Signs: Vital Signs Temp Pulse Resp BP 97.9 F 77 13 147/69 H 04/21/24 15:48 04/21/24 15:48 04/21/24 15:48 04/21/24 15:48 Weight: 140 lb Body Mass Index (BMI) 27.3 Exam Physical Exam Const alert, oriented x3 and no apparent distress General Appearance: cooperative HEENT normocephalic HEENT Narrative: Bilateral TM with tympanostomy tubes in place. 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: CODE(S): L59.8 - Other specified disorders of the skin and subcutaneous tissue related to radiation; Y84.2 - Radiological procedure and radiotherapy as the cause of abnormal reaction of the patient, or of later complication, without mention of misadventure at the time of the procedure (3) Mandibular fracture: CODE(S): S02.609A - Fracture of mandible, unspecified, initial encounter for closed fracture QUALIFIERS: Encounter type: initial encounter Fracture type: closed Mandible location: body Laterality: right Qualified Code(s): S02.601A - Fracture of unspecified part of body of right mandible, initial encounter for closed fracture PLAN: Plan The patient is tolerating and benefiting from hyperbaric oxygen therapy, which will be continued per the patient's medical plan. She has undergone consultation with a specialist at [facility], where it is anticipated that she is to undergo extraction of teeth and internal fixation of her right mandibular fracture in the near future.
[2024-04-22 13:42] VITALS: BP 134/77; BP 134/81; PULSE 67; PULSE 80; RESP 14; RESP 16; TEMP 36.4; TEMP 36.6
--- NOTE | 2024-04-22 16:21 | PCM.HBO.PN ---
History of Present Illness Date of Service: 04/22/24 Chief Complaint: Hyperbaric Oxygen Treatment for Osteoradionecrosis/Delayed Radiation Injury History of Wound: Farideh is a pleasant 74 yo woman that presented to the wound healing center for consultation and evaluation for hyperbaric oxygen treatment for delayed radiation injury/osteoradionecrosis. She was referred for treatment by Dr. Gonzáles, her dentist who is planning to surgical extraction of 2 teeth on the right upper/lower jaw and in preparation of this procedure due to her previous radiation and evidence of soft tissue radionecrosis and osteoradionecrosis of her jaw on exam requests treatment with hyperbaric oxygen in order to prepare the tissue for surgical procedure and promote healing. She relays that she has limited movement of her jaw and xerostomia as well as right jaw pain since her radiation treatment as well as dental issues. Her radiation treatment was to her right neck and subclavian region. She was treated with 200 cGy over a total of 59 days to her right neck with a total dose of 7,000 cGy and 180 cGy to her right subclavian for a total dose of 4,500 cGy over a total of 34 days over the time period of 12/10/2016 to 02/07/2017. 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 She had direct laryngoscopy, right tonsillectomy, and fine needle aspiration of the right neck mass on 10/25/[address] Graves. 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 Cytology of the right neck mass also showed squamous cell carcinoma. PET CT scan on 11/20/2016 showed focal hypermetabolic activity in the right palatine tonsil and hypermetabolic activity in the right level II and level III nodes. She started combined chemotherapy and radiation therapy on 12/10/2016 with Cisplatin 40 mg/m2 weekly and finished the 7th cycle on 02/04/2017. Treatment was complicated by neutropenia and mucositis, which prevented the patient from eating. and she had temporary PEG tube for parenteral feeding during treatment. She has had PEG tube removed and is eating by mouth but has residual slight pain R jaw with decreased ability to open her mouth due to radiation injury. She had a PET/CT 05/05/2017 which showed no activity in the mouth/neck but slight activity in the R upper lobe SUV 1.9. CT neck and chest on 08/04/2017 showed no dominant mass or nodes in the neck, interstitial infiltrates RUL. Had CT chest and neck on 08/04/2018 showed right post radiation fibrosis, T12 compression fracture which she underwent vertebroplasty for treatment by Dr. Pang. Most recently, the patient experienced acute exacerbation of pain in her right jaw, causing her to suspect an additional acute injury to the area. She was evaluated by her dentist, Dr. Gonzáles, in recent days, who confirmed the presence of a fractured right mandible, for which the patient has been referred to a specialist in [place], where it is anticipated that she is to undergo extraction of teeth and internal fixation of the fracture. Progress of Wound: The patient presented today for her 14th hyperbaric oxygen therapy session, of an expected 30 such sessions. Treatment was administered for delayed radiation injury/osteonecrosis. Tolerance of HBO therapy: Hyperbaric oxygen therapy was administered as per the facility protocol. Hyperbaric oxygen therapy was administered at 2 sukh at 100% oxygen for 90 minutes without air breaks. The patient tolerated hyperbaric oxygen therapy well, without complaints or complications. The patient's vital signs remained stable following her hyperbaric oxygen therapy session, and she was discharged in good condition. Objective Data Objective Data Vital Signs: Vital Signs Temp Pulse Resp BP 97.9 F 80 16 134/81 H 04/22/24 13:42 04/22/24 13:42 04/22/24 13:42 04/22/24 13:42 Weight: 140 lb Body Mass Index (BMI) 27.3 Exam Physical Exam Const alert, oriented x3 and no apparent distress General Appearance: cooperative HEENT normocephalic HEENT Narrative: Bilateral TM with tympanostomy tubes in place. Right jaw is slightly swollen. 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: CODE(S): L59.8 - Other specified disorders of the skin and subcutaneous tissue related to radiation; Y84.2 - Radiological procedure and radiotherapy as the cause of abnormal reaction of the patient, or of later complication, without mention of misadventure at the time of the procedure (3) Mandibular fracture: CODE(S): S02.609A - Fracture of mandible, unspecified, initial encounter for closed fracture QUALIFIERS: Encounter type: initial encounter Fracture type: closed Mandible location: body Laterality: right Qualified Code(s): S02.601A - Fracture of unspecified part of body of right mandible, initial encounter for closed fracture PLAN: Plan The patient is tolerating and benefiting from hyperbaric oxygen therapy, which will be continued per the patient's medical plan. She has undergone consultation with a specialist at [facility], where it is anticipated that she is to undergo extraction of teeth and internal fixation of her right mandibular fracture in the near future. She has follow up with them on 04/23/24 for further discussion about this.
--- NOTE | 2024-04-23 13:19 | PCM.HBO.PN ---
History of Present Illness Date of Service: 04/23/24 Chief Complaint: Hyperbaric Oxygen Treatment for Osteoradionecrosis/Delayed Radiation Injury History of Wound: Farideh is a pleasant 74 yo woman that presented to the wound healing center for consultation and evaluation for hyperbaric oxygen treatment for delayed radiation injury/osteoradionecrosis. She was referred for treatment by Dr. Gonzáles, her dentist who is planning to surgical extraction of 2 teeth on the right upper/lower jaw and in preparation of this procedure due to her previous radiation and evidence of soft tissue radionecrosis and osteoradionecrosis of her jaw on exam requests treatment with hyperbaric oxygen in order to prepare the tissue for surgical procedure and promote healing. She relays that she has limited movement of her jaw and xerostomia as well as right jaw pain since her radiation treatment as well as dental issues. Her radiation treatment was to her right neck and subclavian region. She was treated with 200 cGy over a total of 59 days to her right neck with a total dose of 7,000 cGy and 180 cGy to her right subclavian for a total dose of 4,500 cGy over a total of 34 days over the time period of 12/10/2016 to 02/07/2017. 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 She had direct laryngoscopy, right tonsillectomy, and fine needle aspiration of the right neck mass on 10/25/[address] Graves. 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 Cytology of the right neck mass also showed squamous cell carcinoma. PET CT scan on 11/20/2016 showed focal hypermetabolic activity in the right palatine tonsil and hypermetabolic activity in the right level II and level III nodes. She started combined chemotherapy and radiation therapy on 12/10/2016 with Cisplatin 40 mg/m2 weekly and finished the 7th cycle on 02/04/2017. Treatment was complicated by neutropenia and mucositis, which prevented the patient from eating. and she had temporary PEG tube for parenteral feeding during treatment. She has had PEG tube removed and is eating by mouth but has residual slight pain R jaw with decreased ability to open her mouth due to radiation injury. She had a PET/CT 05/05/2017 which showed no activity in the mouth/neck but slight activity in the R upper lobe SUV 1.9. CT neck and chest on 08/04/2017 showed no dominant mass or nodes in the neck, interstitial infiltrates RUL. Had CT chest and neck on 08/04/2018 showed right post radiation fibrosis, T12 compression fracture which she underwent vertebroplasty for treatment by Dr. Pang. Most recently, the patient experienced acute exacerbation of pain in her right jaw, causing her to suspect an additional acute injury to the area. She was evaluated by her dentist, Dr. Gonzáles, in recent days, who confirmed the presence of a fractured right mandible, for which the patient has been referred to a specialist in [place], where it is anticipated that she is to undergo extraction of teeth and internal fixation of the fracture. Progress of Wound: The patient presented today for her 15th hyperbaric oxygen therapy session, of an expected 30 such sessions. Treatment was administered for delayed radiation injury/osteonecrosis. Tolerance of HBO therapy: Hyperbaric oxygen therapy was administered as per the facility protocol. Hyperbaric oxygen therapy was administered at 2 sukh at 100% oxygen for 90 minutes without air breaks. The patient tolerated hyperbaric oxygen therapy well, without complaints or complications. The patient's vital signs remained stable following her hyperbaric oxygen therapy session, and she was discharged in good condition. Objective Data Objective Data Vital Signs: Vital Signs Temp Pulse Resp BP 97.9 F 80 16 134/81 H 04/22/24 13:42 04/22/24 13:42 04/22/24 13:42 04/22/24 13:42 Weight: 140 lb Body Mass Index (BMI) 27.3 Exam Physical Exam Const alert, oriented x3 and no apparent distress General Appearance: cooperative HEENT normocephalic HEENT Narrative: Bilateral TM with tympanostomy tubes in place. Right jaw is slightly swollen. 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: CODE(S): L59.8 - Other specified disorders of the skin and subcutaneous tissue related to radiation; Y84.2 - Radiological procedure and radiotherapy as the cause of abnormal reaction of the patient, or of later complication, without mention of misadventure at the time of the procedure (3) Mandibular fracture: CODE(S): S02.609A - Fracture of mandible, unspecified, initial encounter for closed fracture QUALIFIERS: Encounter type: initial encounter Fracture type: closed Laterality: right Mandible location: body Qualified Code(s): S02.601A - Fracture of unspecified part of body of right mandible, initial encounter for closed fracture PLAN: Plan The patient is tolerating and benefiting from hyperbaric oxygen therapy, which will be continued per the patient's medical plan. She has undergone consultation with a specialist at [facility], where it is anticipated that she is to undergo extraction of teeth and internal fixation of her right mandibular fracture in the near future. She has follow up with them on 04/30/24 for further discussion about this.
[2024-04-23 15:23] VITALS: BP 112/71; BP 124/74; PULSE 67; PULSE 78; RESP 14; TEMP 36.9; TEMP 37
--- NOTE | 2024-04-26 14:47 | HBO.PN.PCM_ITS ---
History of Present Illness Date of Service: 04/26/24 Chief Complaint: Hyperbaric Oxygen Treatment for Osteoradionecrosis/Delayed Radiation Injury History of Wound: Farideh is a pleasant 74 yo woman that presented to the wound healing center for consultation and evaluation for hyperbaric oxygen treatment for delayed radiation injury/osteoradionecrosis. She was referred for treatment by Dr. Gonzáles, her dentist who is planning to surgical extraction of 2 teeth on the right upper/lower jaw and in preparation of this procedure due to her previous radiation and evidence of soft tissue radionecrosis and osteoradionecrosis of her jaw on exam requests treatment with hyperbaric oxygen in order to prepare the tissue for surgical procedure and promote healing. She relays that she has limited movement of her jaw and xerostomia as well as right jaw pain since her radiation treatment as well as dental issues. Her radiation treatment was to her right neck and subclavian region. She was treated with 200 cGy over a total of 59 days to her right neck with a total dose of 7,000 cGy and 180 cGy to her right subclavian for a total dose of 4,500 cGy over a total of 34 days over the time period of 12/10/2016 to 02/07/2017. 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 She had direct laryngoscopy, right tonsillectomy, and fine needle aspiration of the right neck mass on 10/25/[address] Graves. 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 Cytology of the right neck mass also showed squamous cell carcinoma. PET CT scan on 11/20/2016 showed focal hypermetabolic activity in the right palatine tonsil and hypermetabolic activity in the right level II and level III nodes. She started combined chemotherapy and radiation therapy on 12/10/2016 with Cisplatin 40 mg/m2 weekly and finished the 7th cycle on 02/04/2017. Treatment was complicated by neutropenia and mucositis, which prevented the patient from eating. and she had temporary PEG tube for parenteral feeding during treatment. She has had PEG tube removed and is eating by mouth but has residual slight pain R jaw with decreased ability to open her mouth due to radiation injury. She had a PET/CT 05/05/2017 which showed no activity in the mouth/neck but slight activity in the R upper lobe SUV 1.9. CT neck and chest on 08/04/2017 showed no dominant mass or nodes in the neck, interstitial infiltrates RUL. Had CT chest and neck on 08/04/2018 showed right post radiation fibrosis, T12 compression fracture which she underwent vertebroplasty for treatment by Dr. Pang. Most recently, the patient experienced acute exacerbation of pain in her right jaw, causing her to suspect an additional acute injury to the area. She was evaluated by her dentist, Dr. Gonzáles, in recent days, who confirmed the presence of a fractured right mandible, for which the patient has been referred to a specialist in [place], where it is anticipated that she is to undergo extraction of teeth and internal fixation of the fracture. Progress of Wound: The patient presented today for her 16th hyperbaric oxygen therapy session, of an expected 30 such sessions. Treatment was administered for delayed radiation injury/osteonecrosis. Tolerance of HBO therapy: Hyperbaric oxygen therapy was administered as per the facility protocol. Hyperbaric oxygen therapy was administered at 2 sukh at 100% oxygen for 90 minutes without air breaks. The patient tolerated hyperbaric oxygen therapy well, without complaints or complications. The patient's vital signs remained stable following her hyperbaric oxygen therapy session, and she was discharged in good condition. Objective Data Objective Data Vital Signs: Vital Signs Temp Pulse Resp BP 98.6 F 78 14 124/74 H 04/23/24 15:23 04/23/24 15:23 04/23/24 15:23 04/23/24 15:23 Weight: 140 lb Body Mass Index (BMI) 27.3 Exam Physical Exam Const alert, oriented x3 and no apparent distress General Appearance: cooperative HEENT normocephalic HEENT Narrative: Bilateral TM with tympanostomy tubes in place. Right jaw is slightly swollen. 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: CODE(S): L59.8 - Other specified disorders of the skin and subcutaneous tissue related to radiation; Y84.2 - Radiological procedure and radiotherapy as the cause of abnormal reaction of the patient, or of later complication, without mention of misadventure at the time of the procedure (3) Mandibular fracture: CODE(S): S02.609A - Fracture of mandible, unspecified, initial encounter for closed fracture QUALIFIERS: Encounter type: initial encounter Fracture type: closed Mandible location: body Laterality: right Qualified Code(s): S02.601A - Fracture of unspecified part of body of right mandible, initial encounter for closed fracture PLAN: Plan The patient is tolerating and benefiting from hyperbaric oxygen therapy, which will be continued per the patient's medical plan. She has undergone consultation with a specialist at [facility], where it is anticipated that she is to undergo extraction of teeth and internal fixation of her right mandibular fracture in the near future. She has follow up with them on 04/30/24 for further discussion about this.
[2024-04-26 15:14] VITALS: BP 123/69; BP 143/78; PULSE 66; PULSE 81; RESP 15; RESP 17; TEMP 36.4; TEMP 36.7
[2024-04-27 15:05] VITALS: BP 132/70; BP 141/70; PULSE 69; PULSE 81; RESP 14; RESP 15; TEMP 37; TEMP 37.1
--- NOTE | 2024-04-27 16:53 | HBO.PN.PCM_ITS ---
History of Present Illness Date of Service: 04/27/24 Chief Complaint: Hyperbaric Oxygen Treatment for Osteoradionecrosis/Delayed Radiation Injury History of Wound: Farideh is a pleasant 74 yo woman that presented to the wound healing center for consultation and evaluation for hyperbaric oxygen treatment for delayed radiation injury/osteoradionecrosis. She was referred for treatment by Dr. Gonzáles, her dentist who is planning to surgical extraction of 2 teeth on the right upper/lower jaw and in preparation of this procedure due to her previous radiation and evidence of soft tissue radionecrosis and osteoradionecrosis of her jaw on exam requests treatment with hyperbaric oxygen in order to prepare the tissue for surgical procedure and promote healing. She relays that she has limited movement of her jaw and xerostomia as well as right jaw pain since her radiation treatment as well as dental issues. Her radiation treatment was to her right neck and subclavian region. She was treated with 200 cGy over a total of 59 days to her right neck with a total dose of 7,000 cGy and 180 cGy to her right subclavian for a total dose of 4,500 cGy over a total of 34 days over the time period of 12/10/2016 to 02/07/2017. 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 She had direct laryngoscopy, right tonsillectomy, and fine needle aspiration of the right neck mass on 10/25/[address] Graves. 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 Cytology of the right neck mass also showed squamous cell carcinoma. PET CT scan on 11/20/2016 showed focal hypermetabolic activity in the right palatine tonsil and hypermetabolic activity in the right level II and level III nodes. She started combined chemotherapy and radiation therapy on 12/10/2016 with Cisplatin 40 mg/m2 weekly and finished the 7th cycle on 02/04/2017. Treatment was complicated by neutropenia and mucositis, which prevented the patient from eating. and she had temporary PEG tube for parenteral feeding during treatment. She has had PEG tube removed and is eating by mouth but has residual slight pain R jaw with decreased ability to open her mouth due to radiation injury. She had a PET/CT 05/05/2017 which showed no activity in the mouth/neck but slight activity in the R upper lobe SUV 1.9. CT neck and chest on 08/04/2017 showed no dominant mass or nodes in the neck, interstitial infiltrates RUL. Had CT chest and neck on 08/04/2018 showed right post radiation fibrosis, T12 compression fracture which she underwent vertebroplasty for treatment by Dr. Pang. Most recently, the patient experienced acute exacerbation of pain in her right jaw, causing her to suspect an additional acute injury to the area. She was evaluated by her dentist, Dr. Gonzáles, in recent days, who confirmed the presence of a fractured right mandible, for which the patient has been referred to a specialist in [place], where it is anticipated that she is to undergo extraction of teeth and internal fixation of the fracture. Progress of Wound: The patient presented today for her 17th hyperbaric oxygen therapy session, of an expected 30 such sessions. Treatment was administered for delayed radiation injury/osteonecrosis. Tolerance of HBO therapy: Hyperbaric oxygen therapy was administered as per the facility protocol. Hyperbaric oxygen therapy was administered at 2 sukh at 100% oxygen for 90 minutes without air breaks. The patient tolerated hyperbaric oxygen therapy well, without complaints or complications. The patient's vital signs remained stable following her hyperbaric oxygen therapy session, and she was discharged in good condition. Objective Data Objective Data Vital Signs: Vital Signs Temp Pulse Resp BP 98.6 F 81 14 132/70 H 04/27/24 15:05 04/27/24 15:05 04/27/24 15:05 04/27/24 15:05 Weight: 140 lb Body Mass Index (BMI) 27.3 Exam Physical Exam Const alert, oriented x3, no apparent distress and well nourished General Appearance: cooperative and well developed HEENT normocephalic HEENT Narrative: Right jaw is slightly swollen and painful to palpation. 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: CODE(S): L59.8 - Other specified disorders of the skin and subcutaneous tissue related to radiation; Y84.2 - Radiological procedure and radiotherapy as the cause of abnormal reaction of the patient, or of later complication, without mention of misadventure at the time of the procedure (3) Mandibular fracture: CODE(S): S02.609A - Fracture of mandible, unspecified, initial encounter for closed fracture QUALIFIERS: Encounter type: initial encounter Fracture type: closed Laterality: right Mandible location: body Qualified Code(s): S02.601A - Fracture of unspecified part of body of right mandible, initial encounter for closed fracture PLAN: Plan The patient is tolerating and benefiting from hyperbaric oxygen therapy, which will be continued per the patient's medical plan. She is soon to undergo consultation with a specialist at [facility], where it is anticipated that she will be scheduled for extraction of teeth and internal fixation of her right mandibular fracture in the near future.
[2024-04-28 13:28] VITALS: BP 132/76; BP 138/70; PULSE 72; PULSE 78; RESP 14; RESP 15; TEMP 37; TEMP 37.1
--- NOTE | 2024-04-28 14:22 | HBO.PN.PCM_ITS ---
History of Present Illness Date of Service: 04/28/24 Chief Complaint: Hyperbaric Oxygen Treatment for Osteoradionecrosis/Delayed Radiation Injury History of Wound: Farideh is a pleasant 74 yo woman that presented to the wound healing center for consultation and evaluation for hyperbaric oxygen treatment for delayed radiation injury/osteoradionecrosis. She was referred for treatment by Dr. Gonzáles, her dentist who is planning to surgical extraction of 2 teeth on the right upper/lower jaw and in preparation of this procedure due to her previous radiation and evidence of soft tissue radionecrosis and osteoradionecrosis of her jaw on exam requests treatment with hyperbaric oxygen in order to prepare the tissue for surgical procedure and promote healing. She relays that she has limited movement of her jaw and xerostomia as well as right jaw pain since her radiation treatment as well as dental issues. Her radiation treatment was to her right neck and subclavian region. She was treated with 200 cGy over a total of 59 days to her right neck with a total dose of 7,000 cGy and 180 cGy to her right subclavian for a total dose of 4,500 cGy over a total of 34 days over the time period of 12/10/2016 to 02/07/2017. 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 She had direct laryngoscopy, right tonsillectomy, and fine needle aspiration of the right neck mass on 10/25/[address] Graves. 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 Cytology of the right neck mass also showed squamous cell carcinoma. PET CT scan on 11/20/2016 showed focal hypermetabolic activity in the right palatine tonsil and hypermetabolic activity in the right level II and level III nodes. She started combined chemotherapy and radiation therapy on 12/10/2016 with Cisplatin 40 mg/m2 weekly and finished the 7th cycle on 02/04/2017. Treatment was complicated by neutropenia and mucositis, which prevented the patient from eating. and she had temporary PEG tube for parenteral feeding during treatment. She has had PEG tube removed and is eating by mouth but has residual slight pain R jaw with decreased ability to open her mouth due to radiation injury. She had a PET/CT 05/05/2017 which showed no activity in the mouth/neck but slight activity in the R upper lobe SUV 1.9. CT neck and chest on 08/04/2017 showed no dominant mass or nodes in the neck, interstitial infiltrates RUL. Had CT chest and neck on 08/04/2018 showed right post radiation fibrosis, T12 compression fracture which she underwent vertebroplasty for treatment by Dr. Pnag. Most recently, the patient experienced acute exacerbation of pain in her right jaw, causing her to suspect an additional acute injury to the area. She was evaluated by her dentist, Dr. Gonzáles, in recent days, who confirmed the presence of a fractured right mandible, for which the patient has been referred to a specialist in [place], where it is anticipated that she is to undergo extraction of teeth and internal fixation of the fracture. Progress of Wound: The patient presented today for her 18th hyperbaric oxygen therapy session, of an expected 30 such sessions. Treatment was administered for delayed radiation injury/osteonecrosis. Tolerance of HBO therapy: Hyperbaric oxygen therapy was administered as per the facility protocol. Hyperbaric oxygen therapy was administered at 2 sukh at 100% oxygen for 90 minutes without air breaks. The patient tolerated hyperbaric oxygen therapy well, without complaints or complications. The patient's vital signs remained stable following her hyperbaric oxygen therapy session, and she was discharged in good condition. Objective Data Objective Data Vital Signs: Vital Signs Temp Pulse Resp BP 98.6 F 78 15 132/76 H 04/28/24 13:28 04/28/24 13:28 04/28/24 13:28 04/28/24 13:28 Weight: 140 lb Body Mass Index (BMI) 27.3 Exam Physical Exam Const alert, oriented x3 and no apparent distress General Appearance: cooperative HEENT normocephalic HEENT Narrative: Bilateral TM with tympanostomy tubes in place. 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: CODE(S): L59.8 - Other specified disorders of the skin and subcutaneous tissue related to radiation; Y84.2 - Radiological procedure and radiotherapy as the cause of abnormal reaction of the patient, or of later complication, without mention of misadventure at the time of the procedure (3) Mandibular fracture: CODE(S): S02.609A - Fracture of mandible, unspecified, initial encounter for closed fracture QUALIFIERS: Encounter type: initial encounter Fracture type: closed Mandible location: body Laterality: right Qualified Code(s): S02.601A - Fracture of unspecified part of body of right mandible, initial encounter for closed fracture PLAN: Plan The patient is tolerating and benefiting from hyperbaric oxygen therapy, which will be continued per the patient's medical plan. She has undergone consultation with a specialist at [facility], where it is anticipated that she is to undergo extraction of teeth and internal fixation of her right mandibular fracture in the near future. She has follow up with them on 04/30/24 for further discussion about this.
--- NOTE | 2024-04-30 15:40 | PCM.HBO.PN ---
History of Present Illness Date of Service: 04/30/24 Chief Complaint: Hyperbaric Oxygen Treatment for Osteoradionecrosis/Delayed Radiation Injury History of Wound: Farideh is a pleasant 74 yo woman that presented to the wound healing center for consultation and evaluation for hyperbaric oxygen treatment for delayed radiation injury/osteoradionecrosis. She was referred for treatment by Dr. Gonzáles, her dentist who is planning to surgical extraction of 2 teeth on the right upper/lower jaw and in preparation of this procedure due to her previous radiation and evidence of soft tissue radionecrosis and osteoradionecrosis of her jaw on exam requests treatment with hyperbaric oxygen in order to prepare the tissue for surgical procedure and promote healing. She relays that she has limited movement of her jaw and xerostomia as well as right jaw pain since her radiation treatment as well as dental issues. Her radiation treatment was to her right neck and subclavian region. She was treated with 200 cGy over a total of 59 days to her right neck with a total dose of 7,000 cGy and 180 cGy to her right subclavian for a total dose of 4,500 cGy over a total of 34 days over the time period of 12/10/2016 to 02/07/2017. 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 She had direct laryngoscopy, right tonsillectomy, and fine needle aspiration of the right neck mass on 10/25/[address] Graves. 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 Cytology of the right neck mass also showed squamous cell carcinoma. PET CT scan on 11/20/2016 showed focal hypermetabolic activity in the right palatine tonsil and hypermetabolic activity in the right level II and level III nodes. She started combined chemotherapy and radiation therapy on 12/10/2016 with Cisplatin 40 mg/m2 weekly and finished the 7th cycle on 02/04/2017. Treatment was complicated by neutropenia and mucositis, which prevented the patient from eating. and she had temporary PEG tube for parenteral feeding during treatment. She has had PEG tube removed and is eating by mouth but has residual slight pain R jaw with decreased ability to open her mouth due to radiation injury. She had a PET/CT 05/05/2017 which showed no activity in the mouth/neck but slight activity in the R upper lobe SUV 1.9. CT neck and chest on 08/04/2017 showed no dominant mass or nodes in the neck, interstitial infiltrates RUL. Had CT chest and neck on 08/04/2018 showed right post radiation fibrosis, T12 compression fracture which she underwent vertebroplasty for treatment by Dr. Pang. Most recently, the patient experienced acute exacerbation of pain in her right jaw, causing her to suspect an additional acute injury to the area. She was evaluated by her dentist, Dr. Gonzáles, in recent days, who confirmed the presence of a fractured right mandible, for which the patient has been referred to a specialist in [place], where it is anticipated that she is to undergo extraction of teeth and internal fixation of the fracture. Subjective Subjective Farideh has been tolerating HBO treatments well and reports improvement in pain in her jaw. She has completed 18 treatments of 20 initial planned treatments. She is scheduled to see surgeon 04/30/24 regarding extraction of teeth and fixation of mandible fracture. Objective Data Objective Data Vital Signs: Vital Signs Temp Pulse Resp BP 98.6 F 78 15 132/76 H 04/28/24 13:28 04/28/24 13:28 04/28/24 13:28 04/28/24 13:28 Weight: 63.503 kg Body Mass Index (BMI) 27.3 Exam Physical Exam Const alert, oriented x3 and no apparent distress General Appearance: cooperative HEENT normocephalic Eyes PERRL Resp normal respiratory effort, no use of accessory muscles and clear to auscultation bilaterally Effort and Inspection: able to speak in complete sentences Cardio regular rate and regular rhythm Psych affect normal Assessment/Plan Assessment/Plan (1) Osteonecrosis of temporomandibular joint: CODE(S): M87.88 - Other osteonecrosis, other site (2) 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: CODE(S): L59.8 - Other specified disorders of the skin and subcutaneous tissue related to radiation; Y84.2 - Radiological procedure and radiotherapy as the cause of abnormal reaction of the patient, or of later complication, without mention of misadventure at the time of the procedure (3) Mandibular fracture: CODE(S): S02.609A - Fracture of mandible, unspecified, initial encounter for closed fracture QUALIFIERS: Encounter type: initial encounter Fracture type: closed Mandible location: body Laterality: right Qualified Code(s): S02.601A - Fracture of unspecified part of body of right mandible, initial encounter for closed fracture PLAN: Plan The patient is tolerating and benefiting from hyperbaric oxygen therapy, which will be continued per the patient's medical plan. Treatment with hyperbaric oxygen for soft tissue necrosis/osteoradionecrosis status post radiation treatment is recommended for the patient in conjunction with dental extraction. Prescribed treatment regimen is for Hyperbaric Oxygen Treatment at 2.0 MAURIZIO for 90 minutes without air breaks for a total of 30 treatments (20 treatments prior to dental extraction and 10 treatments post extraction). She has nearly completed the first set of 20 treatments and has had improvement in pain and is being evaluated by surgeon for extraction and would benefit from continuing treatment after extraction with 10 additional treatments to support and improve healing. She has undergone consultation with a specialist at [facility], where it is anticipated that she is to undergo extraction of teeth and internal fixation of her right mandibular fracture in the near future. She has follow up with them on 04/30/24 for further discussion about this.
== END 2024-05-02 23:59 | disposition home or self-care (01) ==
LOC: WC 13:00
PROVIDERS: PCP Family Medicine; Referring Provider Family Medicine; Visit Provider Family Medicine
DX: M87.88 Other osteonecrosis, other site (principal); S02.601A Fracture of unspecified part of body of right mandible, initial encounter for closed fracture; Y84.2 Radiological procedure and radiotherapy as the cause of abnormal reaction of the patient, or of later complication, without mention of misadventure at the time of the procedure; K11.7 Disturbances of salivary secretion; L59.8 Other specified disorders of the skin and subcutaneous tissue related to radiation; Z79.899 Other long term (current) drug therapy; Z92.3 Personal history of irradiation; Z92.21 Personal history of antineoplastic chemotherapy; Z85.819 Personal history of malignant neoplasm of unspecified site of lip, oral cavity, and pharynx
CPT/HCPCS: 99183; G0277

== ENCOUNTER → 2024-05-07 | Outpatient (CLI) | payer MEDICARE, SELFPAY ==
--- NOTE | 2024-05-07 10:37 | BI_ITS ---
MAMMOGRAPHY - BILATERAL SCREENING 3-D TOMOSYNTHESIS REASON FOR EXAM: Female, 74 years old. Z12.31 - Encounter for screening mammogram for malignant neopl... PERTINENT HISTORY: No significant family history. TECHNIQUE: 2-D mammograms and 3-D Tomosynthesis of the breast (s) were performed. CAD was performed. COMPARISON: 05/05/2023 FINDINGS: The breast composition is heterogeneously dense that can obscure small breast masses. Scattered benign calcifications are seen. No dense spiculated masses or suspicious microcalcifications are identified. No architectural distortion is identified. There is no skin thickening or retraction. There has been no significant change since the prior study. BI/SCRN MAMM (CAD)W/WILIAM BILAT IMPRESSION: No mammographic signs of malignancy. Routine yearly mammograms recommended. ASSESSMENT CATEGORY: BIRADS Category 1: Negative. A letter regarding these results will be sent to the patient by the facility within 30 days. FOLLOW UP RECOMMENDATION: Yearly follow up mammogram recommended. (A) Approximately 10% of breast cancers are not detected by mammography. A normal mammogram should not delay biopsy of a clinically suspicious abnormality. Electronically Signed: Maximiliano Zhang MD at 15:32 EDT ,
== END | disposition home or self-care (01) ==
LOC: OPBI 10:35
PROVIDERS: PCP Family Medicine; Referring Provider Internal Medicine Medical Oncology; Visit Provider Internal Medicine Medical Oncology
DX: Z12.31 Encounter for screening mammogram for malignant neoplasm of breast (principal)
CPT/HCPCS: 77063; 77067

== ENCOUNTER → 2024-05-21 | Outpatient (CLI) | payer MEDICARE, SELFPAY ==
--- NOTE | 2024-05-21 15:52 | CT_ITS ---
STUDY: CT SOFT TISSUE NECK WITH CONTRAST REASON FOR EXAM: Female, 74 years old. LUMP AND SWELLING IN CLAVICULAR REGION RADIATION DOSAGE (If Supplied By Facility): CTDIvol = ( 13.31 ) mGy, DLP = ( 395.58 ) mGycm TECHNIQUE: The patient was scanned in a multi-detector CT scanner. High resolution transaxial imaging was performed following intravenous administration of IV 75mL Isovue-370. Sagittal and coronal images were reconstructed. Individualized dose optimization techniques were used for this CT. COMPARISON: 08/26/2019 FINDINGS: Normal bilateral parotid glands. Normal bilateral environmental technical officer spaces. Normal bilateral parapharyngeal spaces. Normal bilateral carotid spaces. Normal bilateral sublingual and submandibular glands and spaces. Normal visualized nasopharynx. Normal retropharyngeal space. Normal perivertebral space. Normal visualized bilateral faucial tonsils. The visualized tongue, tongue base and oropharynx are normal. The visualized cervical lymph nodes (levels I-) are within normal size limits, and maintain normal morphology. There is no demonstrated solid or cystic mass lesion. There is no abnormal contrast enhancement. Normal epiglottis, bilateral vallecula and hypopharynx. The pre-epiglottic and paraglottic adipose spaces are normal. Normal visualized bilateral piriform sinuses, aryepiglottic folds, vocal cords, and arytenoid-cricoid articulations. Normal subglottic trachea. Normal bilateral lobes of the thyroid gland. Normal visualized pulmonary apices. Normal visualized paranasal sinuses. There is multilevel degenerative changes of the cervical spine. CT/Soft Tissue Neck WITH Contrast IMPRESSION: Normal enhanced CT examination of the soft tissues of the neck. Electronically Signed: Maximiliano Zhang MD at 19:30 EDT ,
[2024-05-21 16:17] LABS: CREATININE FINGERSTICK < 1.0 mg/dL (0.55-1.02); EGFR FINGERSTICK > 60.0000 mL/min (>60)
== END | disposition home or self-care (01) ==
LOC: CT 15:49
PROVIDERS: PCP Family Medicine; Referring Provider Internal Medicine Medical Oncology; Visit Provider Internal Medicine Medical Oncology
DX: Z01.812 Encounter for preprocedural laboratory examination (principal); M79.89 Other specified soft tissue disorders
CPT/HCPCS: 70491; Q9967

== ENCOUNTER 2024-05-25 13:00 | Outpatient (RCR) | payer MEDICARE, SELFPAY ==
[2024-05-03 00:38] VITALS: BP 144/77; BP 147/67; BP 154/85; PULSE 69; PULSE 75; PULSE 77; RESP 12; RESP 13; TEMP 36.8; TEMP 36.9; BMI 27.3
[2024-05-11 15:20] VITALS: BP 133/67; BP 141/77; PULSE 73; PULSE 96; RESP 15; RESP 16; TEMP 36.7; TEMP 36.8
--- NOTE | 2024-05-11 21:26 | PCM.HBO.PN ---
History of Present Illness Date of Service: 05/11/24 Chief Complaint: Hyperbaric Oxygen Treatment for Osteoradionecrosis/Delayed Radiation Injury History of Wound: Farideh is a pleasant 74 yo woman that presented to the wound healing center for consultation and evaluation for hyperbaric oxygen treatment for delayed radiation injury/osteoradionecrosis. She was referred for treatment by Dr. Gonzáles, her dentist who is planning to surgical extraction of 2 teeth on the right upper/lower jaw and in preparation of this procedure due to her previous radiation and evidence of soft tissue radionecrosis and osteoradionecrosis of her jaw on exam requests treatment with hyperbaric oxygen in order to prepare the tissue for surgical procedure and promote healing. She relays that she has limited movement of her jaw and xerostomia as well as right jaw pain since her radiation treatment as well as dental issues. Her radiation treatment was to her right neck and subclavian region. She was treated with 200 cGy over a total of 59 days to her right neck with a total dose of 7,000 cGy and 180 cGy to her right subclavian for a total dose of 4,500 cGy over a total of 34 days over the time period of 12/10/2016 to 02/07/2017. 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 She had direct laryngoscopy, right tonsillectomy, and fine needle aspiration of the right neck mass on 10/25/[address] Graves. 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 Cytology of the right neck mass also showed squamous cell carcinoma. PET CT scan on 11/20/2016 showed focal hypermetabolic activity in the right palatine tonsil and hypermetabolic activity in the right level II and level III nodes. She started combined chemotherapy and radiation therapy on 12/10/2016 with Cisplatin 40 mg/m2 weekly and finished the 7th cycle on 02/04/2017. Treatment was complicated by neutropenia and mucositis, which prevented the patient from eating. and she had temporary PEG tube for parenteral feeding during treatment. She has had PEG tube removed and is eating by mouth but has residual slight pain R jaw with decreased ability to open her mouth due to radiation injury. She had a PET/CT 05/05/2017 which showed no activity in the mouth/neck but slight activity in the R upper lobe SUV 1.9. CT neck and chest on 08/04/2017 showed no dominant mass or nodes in the neck, interstitial infiltrates RUL. Had CT chest and neck on 08/04/2018 showed right post radiation fibrosis, T12 compression fracture which she underwent vertebroplasty for treatment by Dr. Pang. Most recently, the patient experienced acute exacerbation of pain in her right jaw, causing her to suspect an additional acute injury to the area. She was evaluated by her dentist, Dr. Gonzáles, who confirmed the presence of a fractured right mandible, for which the patient has been referred to a specialist in [place], where it is anticipated that she is to undergo extraction of teeth and internal fixation of the fracture. Last week, the patient underwent consultation with a specialist at [facility]. Oral surgery is planned, where it is anticipated that tooth will be extracted from the right mandible, and an open reduction and internal fixation of her right mandible fracture will be performed. Her surgery is tentatively scheduled for early June. . As of today, May 11, 2024, she has completed 19 of 20 scheduled HBO treatments that are prescribed prior to surgery and she is planning to have 10 additional treatments post surgery to improve healing. Given the delay in her timing of surgery it is recommended that she continue HBO treatments until her surgery June 09, 2024. This would require an additional 20 HBO treatments prior to her surgery for her to benefit the most from HBO treatment in preparation for her surgery. She has been tolerating treatments well and has had decreased pain and some improved ability to open her mouth following the treatments that she has undergone. We will request additional treatments from her insurance company. Subjective Subjective The patient has been tolerating HBO treatments well and reports improvement in pain in her jaw. She has completed 18 treatments of 30 initial planned treatments. Today's hyperbaric oxygen therapy session represents the 19th such treatment. Hyperbaric oxygen therapy was administered as per the facility's protocol. History of therapy was administered at 2 sukh at 100% oxygen for 90 minutes without air breaks. The patient tolerated hyperbaric oxygen therapy well, without complaints or complications. Upon emergence from the hyperbaric chamber, patient's vital signs remained stable. The patient was discharged in good condition. Objective Data Objective Data Vital Signs: Vital Signs Temp Pulse Resp BP 98.1 F 96 16 133/67 H 05/11/24 15:20 05/11/24 15:20 05/11/24 15:20 05/11/24 15:20 Weight: 140 lb Body Mass Index (BMI) 27.3 Exam Physical Exam Const alert, oriented x3, no apparent distress and well nourished General Appearance: cooperative and well developed HEENT normocephalic Head and Scalp: atraumatic Eyes EOMs intact bilaterally Neck Neck Narrative: +swelling R clavicular head area Resp normal respiratory effort, no use of accessory muscles and clear to auscultation bilaterally Effort and Inspection: able to speak in complete sentences Psych affect normal Appearance: grossly normal and well kempt Speech: normal speech Charges/Coding Wound Center CF Procedures HBO Supervision: [id number] Hyperbaric Oxygen; supervision Assessment/Plan Assessment/Plan (1) Osteonecrosis of temporomandibular joint: CODE(S): M87.88 - Other osteonecrosis, other site (2) 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: CODE(S): L59.8 - Other specified disorders of the skin and subcutaneous tissue related to radiation; Y84.2 - Radiological procedure and radiotherapy as the cause of abnormal reaction of the patient, or of later complication, without mention of misadventure at the time of the procedure (3) Mandibular fracture: CODE(S): S02.609A - Fracture of mandible, unspecified, initial encounter for closed fracture QUALIFIERS: Encounter type: initial encounter Fracture type: closed Mandible location: body Laterality: right Qualified Code(s): S02.601A - Fracture of unspecified part of body of right mandible, initial encounter for closed fracture PLAN: Plan The patient is tolerating and benefiting from hyperbaric oxygen therapy, which will be continued per the patient's medical plan. Treatment with hyperbaric oxygen for soft tissue necrosis/osteoradionecrosis status post radiation treatment is recommended for the patient in conjunction with dental extraction and anticipated mandibular internal fixation surgery. Prescribed treatment regimen is for Hyperbaric Oxygen Treatment at 2.0 MAURIZIO for 90 minutes without air breaks for a total of 30 treatments (20 treatments prior to dental extraction and 10 treatments post extraction). She has nearly completed the first set of 20 treatments and has had improvement in pain and is being evaluated by her surgeon for extraction and would benefit from continuing treatment after extraction with 10 additional treatments to support and improve healing. She has undergone consultation with a specialist at [facility], where it is anticipated that she is to undergo extraction of teeth and internal fixation of her right mandibular fracture in the near future.
[2024-05-12 14:41] VITALS: BP 127/68; BP 146/85; PULSE 69; PULSE 93; RESP 14; RESP 15; TEMP 36.6; TEMP 36.7
--- NOTE | 2024-05-12 15:20 | PCM.HBO.PN ---
History of Present Illness Date of Service: 05/12/24 Chief Complaint: Hyperbaric Oxygen Treatment for Osteoradionecrosis/Delayed Radiation Injury History of Wound: Farideh is a pleasant 74 yo woman that presented to the wound healing center for consultation and evaluation for hyperbaric oxygen treatment for delayed radiation injury/osteoradionecrosis. She was referred for treatment by Dr. Gonzáles, her dentist who is planning to surgical extraction of 2 teeth on the right upper/lower jaw and in preparation of this procedure due to her previous radiation and evidence of soft tissue radionecrosis and osteoradionecrosis of her jaw on exam requests treatment with hyperbaric oxygen in order to prepare the tissue for surgical procedure and promote healing. She relays that she has limited movement of her jaw and xerostomia as well as right jaw pain since her radiation treatment as well as dental issues. Her radiation treatment was to her right neck and subclavian region. She was treated with 200 cGy over a total of 59 days to her right neck with a total dose of 7,000 cGy and 180 cGy to her right subclavian for a total dose of 4,500 cGy over a total of 34 days over the time period of 12/10/2016 to 02/07/2017. 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 She had direct laryngoscopy, right tonsillectomy, and fine needle aspiration of the right neck mass on 10/25/[address] Graves. 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 Cytology of the right neck mass also showed squamous cell carcinoma. PET CT scan on 11/20/2016 showed focal hypermetabolic activity in the right palatine tonsil and hypermetabolic activity in the right level II and level III nodes. She started combined chemotherapy and radiation therapy on 12/10/2016 with Cisplatin 40 mg/m2 weekly and finished the 7th cycle on 02/04/2017. Treatment was complicated by neutropenia and mucositis, which prevented the patient from eating. and she had temporary PEG tube for parenteral feeding during treatment. She has had PEG tube removed and is eating by mouth but has residual slight pain R jaw with decreased ability to open her mouth due to radiation injury. She had a PET/CT 05/05/2017 which showed no activity in the mouth/neck but slight activity in the R upper lobe SUV 1.9. CT neck and chest on 08/04/2017 showed no dominant mass or nodes in the neck, interstitial infiltrates RUL. Had CT chest and neck on 08/04/2018 showed right post radiation fibrosis, T12 compression fracture which she underwent vertebroplasty for treatment by Dr. Pang. Most recently, the patient experienced acute exacerbation of pain in her right jaw, causing her to suspect an additional acute injury to the area. She was evaluated by her dentist, Dr. Gonzáles, who confirmed the presence of a fractured right mandible, for which the patient has been referred to a specialist in [place], where it is anticipated that she is to undergo extraction of teeth and internal fixation of the fracture. Last week, the patient underwent consultation with a specialist at [facility]. Oral surgery is planned, where it is anticipated that tooth will be extracted from the right mandible, and an open reduction and internal fixation of her right mandible fracture will be performed. Her surgery is tentatively scheduled for early June. . As of today, May 11, 2024, she has completed 19 of 20 scheduled HBO treatments that are prescribed prior to surgery and she is planning to have 10 additional treatments post surgery to improve healing. Given the delay in her timing of surgery it is recommended that she continue HBO treatments until her surgery June 09, 2024. This would require an additional 20 HBO treatments prior to her surgery for her to benefit the most from HBO treatment in preparation for her surgery. She has been tolerating treatments well and has had decreased pain and some improved ability to open her mouth following the treatments that she has undergone. We will request additional treatments from her insurance company. Progress of Wound: The patient presented today for her 20th hyperbaric oxygen therapy session. Treatment was administered for delayed radiation injury/osteonecrosis. Hyperbaric oxygen therapy was administered as per the facility protocol. Hyperbaric oxygen therapy was administered at 2 sukh at 100% oxygen for 90 minutes without air breaks. The patient tolerated hyperbaric oxygen therapy well, without complaints or complications. The patient's vital signs remained stable following her hyperbaric oxygen therapy session, and she was discharged in good condition. Objective Data Objective Data Vital Signs: Vital Signs Temp Pulse Resp BP 98.1 F 93 15 146/85 H 05/12/24 14:41 05/12/24 14:41 05/12/24 14:41 05/12/24 14:41 Weight: 140 lb Body Mass Index (BMI) 27.3 Exam Physical Exam Const alert, oriented x3 and no apparent distress General Appearance: cooperative HEENT normocephalic HEENT Narrative: Bilateral TM with tympanostomy tubes in place. 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: CODE(S): L59.8 - Other specified disorders of the skin and subcutaneous tissue related to radiation; Y84.2 - Radiological procedure and radiotherapy as the cause of abnormal reaction of the patient, or of later complication, without mention of misadventure at the time of the procedure (3) Mandibular fracture: CODE(S): S02.609A - Fracture of mandible, unspecified, initial encounter for closed fracture QUALIFIERS: Encounter type: initial encounter Fracture type: closed Mandible location: body Laterality: right Qualified Code(s): S02.601A - Fracture of unspecified part of body of right mandible, initial encounter for closed fracture PLAN: Plan The patient is tolerating and benefiting from hyperbaric oxygen therapy, which will be continued per the patient's medical plan. She has undergone consultation with a specialist at [facility], where it is anticipated that she is to undergo extraction of teeth and internal fixation of her right mandibular fracture in early June.
--- NOTE | 2024-05-13 13:27 | HBO.PN.PCM_ITS ---
History of Present Illness Date of Service: 05/13/24 Chief Complaint: Hyperbaric Oxygen Treatment for Osteoradionecrosis/Delayed Radiation Injury History of Wound: Farideh is a pleasant 74 yo woman that presented to the wound healing center for consultation and evaluation for hyperbaric oxygen treatment for delayed radiation injury/osteoradionecrosis. She was referred for treatment by Dr. Gonzáles, her dentist who is planning to surgical extraction of 2 teeth on the right upper/lower jaw and in preparation of this procedure due to her previous radiation and evidence of soft tissue radionecrosis and osteoradionecrosis of her jaw on exam requests treatment with hyperbaric oxygen in order to prepare the tissue for surgical procedure and promote healing. She relays that she has limited movement of her jaw and xerostomia as well as right jaw pain since her radiation treatment as well as dental issues. Her radiation treatment was to her right neck and subclavian region. She was treated with 200 cGy over a total of 59 days to her right neck with a total dose of 7,000 cGy and 180 cGy to her right subclavian for a total dose of 4,500 cGy over a total of 34 days over the time period of 12/10/2016 to 02/07/2017. 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 She had direct laryngoscopy, right tonsillectomy, and fine needle aspiration of the right neck mass on 10/25/[address] Grvaes. 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 Cytology of the right neck mass also showed squamous cell carcinoma. PET CT scan on 11/20/2016 showed focal hypermetabolic activity in the right palatine tonsil and hypermetabolic activity in the right level II and level III nodes. She started combined chemotherapy and radiation therapy on 12/10/2016 with Cisplatin 40 mg/m2 weekly and finished the 7th cycle on 02/04/2017. Treatment was complicated by neutropenia and mucositis, which prevented the patient from eating. and she had temporary PEG tube for parenteral feeding during treatment. She has had PEG tube removed and is eating by mouth but has residual slight pain R jaw with decreased ability to open her mouth due to radiation injury. She had a PET/CT 05/05/2017 which showed no activity in the mouth/neck but slight activity in the R upper lobe SUV 1.9. CT neck and chest on 08/04/2017 showed no dominant mass or nodes in the neck, interstitial infiltrates RUL. Had CT chest and neck on 08/04/2018 showed right post radiation fibrosis, T12 compression fracture which she underwent vertebroplasty for treatment by Dr. Pang. Most recently, the patient experienced acute exacerbation of pain in her right jaw, causing her to suspect an additional acute injury to the area. She was evaluated by her dentist, Dr. Gonzáles, who confirmed the presence of a fractured right mandible, for which the patient has been referred to a specialist in [place], where it is anticipated that she is to undergo extraction of teeth and internal fixation of the fracture. Last week, the patient underwent consultation with a specialist at [facility]. Oral surgery is planned, where it is anticipated that tooth will be extracted from the right mandible, and an open reduction and internal fixation of her right mandible fracture will be performed. Her surgery is tentatively scheduled for early June. . As of today, May 11, 2024, she has completed 19 of 20 scheduled HBO treatments that are prescribed prior to surgery and she is planning to have 10 additional treatments post surgery to improve healing. Given the delay in her timing of surgery it is recommended that she continue HBO treatments until her surgery June 09, 2024. This would require an additional 20 HBO treatments prior to her surgery for her to benefit the most from HBO treatment in preparation for her surgery. She has been tolerating treatments well and has had decreased pain and some improved ability to open her mouth following the treatments that she has undergone. We will request additional treatments from her insurance company. Progress of Wound: The patient presented today for her 21st hyperbaric oxygen therapy session. Treatment was administered for delayed radiation injury/osteonecrosis. Hyperbaric oxygen therapy was administered as per the facility protocol. Hyperbaric oxygen therapy was administered at 2 sukh at 100% oxygen for 90 minutes without air breaks. The patient tolerated hyperbaric oxygen therapy well, without complaints or complications. The patient's vital signs remained stable following her hyperbaric oxygen therapy session, and she was discharged in good condition. Objective Data Objective Data Vital Signs: Vital Signs Temp Pulse Resp BP 98.1 F 93 15 146/85 H 05/12/24 14:41 05/12/24 14:41 05/12/24 14:41 05/12/24 14:41 Weight: 140 lb Body Mass Index (BMI) 27.3 Exam Physical Exam Const alert, oriented x3 and no apparent distress General Appearance: cooperative HEENT normocephalic HEENT Narrative: Bilateral TM with tympanostomy tubes in place. TM clear. 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
[2024-05-13 14:43] VITALS: BP 117/74; BP 121/68; PULSE 68; PULSE 87; RESP 13; RESP 16; TEMP 36.6; TEMP 36.9
--- NOTE | 2024-05-14 13:15 | HBO.PN.PCM_ITS ---
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 She was referred for treatment by Dr. Gonzáles, her dentist who is planning to surgical extraction of 2 teeth on the right upper/lower jaw and in preparation of this procedure due to her previous radiation and evidence of soft tissue radionecrosis and osteoradionecrosis of her jaw on exam requests treatment with hyperbaric oxygen in order to prepare the tissue for surgical procedure and promote healing. She relays that she has limited movement of her jaw and xerostomia as well as right jaw pain since her radiation treatment as well as dental issues. Her radiation treatment was to her right neck and subclavian region. She was treated with 200 cGy over a total of 59 days to her right neck with a total dose of 7,000 cGy and 180 cGy to her right subclavian for a total dose of 4,500 cGy over a total of 34 days over the time period of 12/10/2016 to 02/07/2017. 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 She had direct laryngoscopy, right tonsillectomy, and fine needle aspiration of the right neck mass on 10/25/[address] Graves. 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 Cytology of the right neck mass also showed squamous cell carcinoma. PET CT scan on 11/20/2016 showed focal hypermetabolic activity in the right palatine tonsil and hypermetabolic activity in the right level II and level III nodes. She started combined chemotherapy and radiation therapy on 12/10/2016 with Cisplatin 40 mg/m2 weekly and finished the 7th cycle on 02/04/2017. Treatment was complicated by neutropenia and mucositis, which prevented the patient from eating. and she had temporary PEG tube for parenteral feeding during treatment. She has had PEG tube removed and is eating by mouth but has residual slight pain R jaw with decreased ability to open her mouth due to radiation injury. She had a PET/CT 05/05/2017 which showed no activity in the mouth/neck but slight activity in the R upper lobe SUV 1.9. CT neck and chest on 08/04/2017 showed no dominant mass or nodes in the neck, interstitial infiltrates RUL. Had CT chest and neck on 08/04/2018 showed right post radiation fibrosis, T12 compression fracture which she underwent vertebroplasty for treatment by Dr. Pang. Most recently, the patient experienced acute exacerbation of pain in her right jaw, causing her to suspect an additional acute injury to the area. She was evaluated by her dentist, Dr. Gonzáles, who confirmed the presence of a fractured right mandible, for which the patient has been referred to a specialist in [place], where it is anticipated that she is to undergo extraction of teeth and internal fixation of the fracture. Last week, the patient underwent consultation with a specialist at [facility]. Oral surgery is planned, where it is anticipated that tooth will be extracted from the right mandible, and an open reduction and internal fixation of her right mandible fracture will be performed. Her surgery is tentatively scheduled for early June. . As of today, May 11, 2024, she has completed 19 of 20 scheduled HBO treatments that are prescribed prior to surgery and she is planning to have 10 additional treatments post surgery to improve healing. Given the delay in her timing of surgery it is recommended that she continue HBO treatments until her surgery June 09, 2024. This would require an additional 20 HBO treatments prior to her surgery for her to benefit the most from HBO treatment in preparation for her surgery. She has been tolerating treatments well and has had decreased pain and some improved ability to open her mouth following the treatments that she has undergone. We will request additional treatments from her insurance company. Progress of Wound: The patient presented today for her nd hyperbaric oxygen therapy session. Treatment was administered for delayed radiation injury/osteonecrosis. Hyperbaric oxygen therapy was administered as per the facility protocol. Hyperbaric oxygen therapy was administered at 2 sukh at 100% oxygen for 90 minutes without air breaks. The patient tolerated hyperbaric oxygen therapy well, without complaints or complications. The patient's vital signs remained stable following her hyperbaric oxygen therapy session, and she was discharged in good condition. Objective Data Objective Data Vital Signs: Vital Signs Temp Pulse Resp BP 98.4 F 87 16 121/68 H 05/13/24 14:43 05/13/24 14:43 05/13/24 14:43 05/13/24 14:43 Weight: 140 lb Body Mass Index (BMI) 27.3 Exam Physical Exam Const alert, oriented x3 and no apparent distress General Appearance: cooperative HEENT normocephalic HEENT Narrative: Bilateral TM with tympanostomy tubes in place. TM clear. 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
[2024-05-14 14:12] VITALS: BP 131/73; BP 133/67; PULSE 68; PULSE 83; RESP 14; TEMP 36.6
[2024-05-17 13:54] VITALS: BP 130/67; BP 136/75; PULSE 67; PULSE 69; RESP 13; RESP 16; TEMP 36.4; TEMP 37.1
--- NOTE | 2024-05-17 15:33 | HBO.PN.PCM_ITS ---
History of Present Illness Date of Service: 05/17/24 Chief Complaint: Hyperbaric Oxygen Treatment for Osteoradionecrosis/Delayed Radiation Injury History of Wound: Farideh is a pleasant 74 yo woman that presented to the wound healing center for consultation and evaluation for hyperbaric oxygen treatment for delayed radiation injury/osteoradionecrosis. She was referred for treatment by Dr. Gonzáles, her dentist who is planning to surgical extraction of 2 teeth on the right upper/lower jaw and in preparation of this procedure due to her previous radiation and evidence of soft tissue radionecrosis and osteoradionecrosis of her jaw on exam requests treatment with hyperbaric oxygen in order to prepare the tissue for surgical procedure and promote healing. She relays that she has limited movement of her jaw and xerostomia as well as right jaw pain since her radiation treatment as well as dental issues. Her radiation treatment was to her right neck and subclavian region. She was treated with 200 cGy over a total of 59 days to her right neck with a total dose of 7,000 cGy and 180 cGy to her right subclavian for a total dose of 4,500 cGy over a total of 34 days over the time period of 12/10/2016 to 02/07/2017. 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 She had direct laryngoscopy, right tonsillectomy, and fine needle aspiration of the right neck mass on 10/25/[address] Graves. 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 Cytology of the right neck mass also showed squamous cell carcinoma. PET CT scan on 11/20/2016 showed focal hypermetabolic activity in the right palatine tonsil and hypermetabolic activity in the right level II and level III nodes. She started combined chemotherapy and radiation therapy on 12/10/2016 with Cisplatin 40 mg/m2 weekly and finished the 7th cycle on 02/04/2017. Treatment was complicated by neutropenia and mucositis, which prevented the patient from eating. and she had temporary PEG tube for parenteral feeding during treatment. She has had PEG tube removed and is eating by mouth but has residual slight pain R jaw with decreased ability to open her mouth due to radiation injury. She had a PET/CT 05/05/2017 which showed no activity in the mouth/neck but slight activity in the R upper lobe SUV 1.9. CT neck and chest on 08/04/2017 showed no dominant mass or nodes in the neck, interstitial infiltrates RUL. Had CT chest and neck on 08/04/2018 showed right post radiation fibrosis, T12 compression fracture which she underwent vertebroplasty for treatment by Dr. Pang. Most recently, the patient experienced acute exacerbation of pain in her right jaw, causing her to suspect an additional acute injury to the area. She was evaluated by her dentist, Dr. Gonzáles, who confirmed the presence of a fractured right mandible, for which the patient has been referred to a specialist in [place], where it is anticipated that she is to undergo extraction of teeth and internal fixation of the fracture. Last week, the patient underwent consultation with a specialist at [facility]. Oral surgery is planned, where it is anticipated that tooth will be extracted from the right mandible, and an open reduction and internal fixation of her right mandible fracture will be performed. Her surgery is tentatively scheduled for early June. . As of today, May 11, 2024, she has completed 19 of 20 scheduled HBO treatments that are prescribed prior to surgery and she is planning to have 10 additional treatments post surgery to improve healing. Given the delay in her timing of surgery it is recommended that she continue HBO treatments until her surgery June 09, 2024. This would require an additional 20 HBO treatments prior to her surgery for her to benefit the most from HBO treatment in preparation for her surgery. She has been tolerating treatments well and has had decreased pain and some improved ability to open her mouth following the treatments that she has undergone. We will request additional treatments from her insurance company. Progress of Wound: The patient presented today for her hyperbaric oxygen therapy session. Treatment was administered for delayed radiation injury/osteonecrosis. Hyperbaric oxygen therapy was administered as per the facility protocol. Hyperbaric oxygen therapy was administered at 2 sukh at 100% oxygen for 90 minutes without air breaks. The patient tolerated hyperbaric oxygen therapy well, without complaints or complications. The patient's vital signs remained stable following her hyperbaric oxygen therapy session, and she was discharged in good condition. Objective Data Objective Data Vital Signs: Vital Signs Temp Pulse Resp BP 98.7 F 67 13 130/67 H 05/17/24 13:54 05/17/24 13:54 05/17/24 13:54 05/17/24 13:54 Weight: 140 lb Body Mass Index (BMI) 27.3 Exam Physical Exam Const alert, oriented x3 and no apparent distress General Appearance: cooperative HEENT normocephalic HEENT Narrative: Bilateral TM with tympanostomy tubes in place. 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: CODE(S): L59.8 - Other specified disorders of the skin and subcutaneous tissue related to radiation; Y84.2 - Radiological procedure and radiotherapy as the cause of abnormal reaction of the patient, or of later complication, without mention of misadventure at the time of the procedure (3) Mandibular fracture: CODE(S): S02.609A - Fracture of mandible, unspecified, initial encounter for closed fracture QUALIFIERS: Encounter type: initial encounter Fracture type: closed Mandible location: body Laterality: right Qualified Code(s): S02.601A - Fracture of unspecified part of body of right mandible, initial encounter for closed fracture PLAN: Plan The patient is tolerating and benefiting from hyperbaric oxygen therapy, which will be continued per the patient's medical plan.
[2024-05-18 15:02] VITALS: BP 138/69; BP 138/71; PULSE 106; PULSE 76; RESP 14; TEMP 37; TEMP 37.2
[2024-05-19 14:34] VITALS: BP 132/69; BP 148/83; PULSE 77; PULSE 91; RESP 12; RESP 13; TEMP 36.8; TEMP 37.1
--- NOTE | 2024-05-19 14:48 | PCM.HBO.PN ---
History of Present Illness Date of Service: 05/19/24 Chief Complaint: Hyperbaric Oxygen Treatment for Osteoradionecrosis/Delayed Radiation Injury History of Wound: Farideh is a pleasant 74 yo woman that presented to the wound healing center for consultation and evaluation for hyperbaric oxygen treatment for delayed radiation injury/osteoradionecrosis. She was referred for treatment by Dr. Gonzáles, her dentist who is planning to surgical extraction of 2 teeth on the right upper/lower jaw and in preparation of this procedure due to her previous radiation and evidence of soft tissue radionecrosis and osteoradionecrosis of her jaw on exam requests treatment with hyperbaric oxygen in order to prepare the tissue for surgical procedure and promote healing. She relays that she has limited movement of her jaw and xerostomia as well as right jaw pain since her radiation treatment as well as dental issues. Her radiation treatment was to her right neck and subclavian region. She was treated with 200 cGy over a total of 59 days to her right neck with a total dose of 7,000 cGy and 180 cGy to her right subclavian for a total dose of 4,500 cGy over a total of 34 days over the time period of 12/10/2016 to 02/07/2017. 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 She had direct laryngoscopy, right tonsillectomy, and fine needle aspiration of the right neck mass on 10/25/[address] Graves. 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 Cytology of the right neck mass also showed squamous cell carcinoma. PET CT scan on 11/20/2016 showed focal hypermetabolic activity in the right palatine tonsil and hypermetabolic activity in the right level II and level III nodes. She started combined chemotherapy and radiation therapy on 12/10/2016 with Cisplatin 40 mg/m2 weekly and finished the 7th cycle on 02/04/2017. Treatment was complicated by neutropenia and mucositis, which prevented the patient from eating. and she had temporary PEG tube for parenteral feeding during treatment. She has had PEG tube removed and is eating by mouth but has residual slight pain R jaw with decreased ability to open her mouth due to radiation injury. She had a PET/CT 05/05/2017 which showed no activity in the mouth/neck but slight activity in the R upper lobe SUV 1.9. CT neck and chest on 08/04/2017 showed no dominant mass or nodes in the neck, interstitial infiltrates RUL. Had CT chest and neck on 08/04/2018 showed right post radiation fibrosis, T12 compression fracture which she underwent vertebroplasty for treatment by Dr. Pang. Most recently, the patient experienced acute exacerbation of pain in her right jaw, causing her to suspect an additional acute injury to the area. She was evaluated by her dentist, Dr. Gonzáles, who confirmed the presence of a fractured right mandible, for which the patient has been referred to a specialist in [place], where it is anticipated that she is to undergo extraction of teeth and internal fixation of the fracture. Last week, the patient underwent consultation with a specialist at [facility]. Oral surgery is planned, where it is anticipated that tooth will be extracted from the right mandible, and an open reduction and internal fixation of her right mandible fracture will be performed. Her surgery is tentatively scheduled for early June. . As of today, May 11, 2024, she has completed 19 of 20 scheduled HBO treatments that are prescribed prior to surgery and she is planning to have 10 additional treatments post surgery to improve healing. Given the delay in her timing of surgery it is recommended that she continue HBO treatments until her surgery June 09, 2024. This would require an additional 20 HBO treatments prior to her surgery for her to benefit the most from HBO treatment in preparation for her surgery. She has been tolerating treatments well and has had decreased pain and some improved ability to open her mouth following the treatments that she has undergone. We will request additional treatments from her insurance company. Progress of Wound: The patient presented today for her 25th hyperbaric oxygen therapy session. Treatment was administered for delayed radiation injury/osteonecrosis. Hyperbaric oxygen therapy was administered as per the facility protocol. Hyperbaric oxygen therapy was administered at 2 sukh at 100% oxygen for 90 minutes without air breaks. The patient tolerated hyperbaric oxygen therapy well, without complaints or complications. The patient's vital signs remained stable following her hyperbaric oxygen therapy session, and she was discharged in good condition. Objective Data Objective Data Vital Signs: Vital Signs Temp Pulse Resp BP 98.8 F 91 12 148/83 H 05/19/24 14:34 05/19/24 14:34 05/19/24 14:34 05/19/24 14:34 Weight: 140 lb Body Mass Index (BMI) 27.3 Exam Physical Exam Const alert, oriented x3 and no apparent distress General Appearance: cooperative HEENT normocephalic HEENT Narrative: Bilateral TM with tympanostomy tubes in place. 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: CODE(S): L59.8 - Other specified disorders of the skin and subcutaneous tissue related to radiation; Y84.2 - Radiological procedure and radiotherapy as the cause of abnormal reaction of the patient, or of later complication, without mention of misadventure at the time of the procedure (3) Mandibular fracture: CODE(S): S02.609A - Fracture of mandible, unspecified, initial encounter for closed fracture QUALIFIERS: Encounter type: initial encounter Fracture type: closed Laterality: right Mandible location: body Qualified Code(s): S02.601A - Fracture of unspecified part of body of right mandible, initial encounter for closed fracture PLAN: Plan The patient is tolerating and benefiting from hyperbaric oxygen therapy, which will be continued per the patient's medical plan.
--- NOTE | 2024-05-19 18:16 | HBO.PN.PCM_ITS ---
History of Present Illness Date of Service: 05/18/24 Chief Complaint: Hyperbaric Oxygen Treatment for Osteoradionecrosis/Delayed Radiation Injury History of Wound: Farideh is a pleasant 74 yo woman that presented to the wound healing center for consultation and evaluation for hyperbaric oxygen treatment for delayed radiation injury/osteoradionecrosis. She was referred for treatment by Dr. Gonzáles, her dentist who is planning to surgical extraction of 2 teeth on the right upper/lower jaw and in preparation of this procedure due to her previous radiation and evidence of soft tissue radionecrosis and osteoradionecrosis of her jaw on exam requests treatment with hyperbaric oxygen in order to prepare the tissue for surgical procedure and promote healing. She relays that she has limited movement of her jaw and xerostomia as well as right jaw pain since her radiation treatment as well as dental issues. Her radiation treatment was to her right neck and subclavian region. She was treated with 200 cGy over a total of 59 days to her right neck with a total dose of 7,000 cGy and 180 cGy to her right subclavian for a total dose of 4,500 cGy over a total of 34 days over the time period of 12/10/2016 to 02/07/2017. 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 She had direct laryngoscopy, right tonsillectomy, and fine needle aspiration of the right neck mass on 10/25/[address] Graves. 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 Cytology of the right neck mass also showed squamous cell carcinoma. PET CT scan on 11/20/2016 showed focal hypermetabolic activity in the right palatine tonsil and hypermetabolic activity in the right level II and level III nodes. She started combined chemotherapy and radiation therapy on 12/10/2016 with Cisplatin 40 mg/m2 weekly and finished the 7th cycle on 02/04/2017. Treatment was complicated by neutropenia and mucositis, which prevented the patient from eating. and she had temporary PEG tube for parenteral feeding during treatment. She has had PEG tube removed and is eating by mouth but has residual slight pain R jaw with decreased ability to open her mouth due to radiation injury. She had a PET/CT 05/05/2017 which showed no activity in the mouth/neck but slight activity in the R upper lobe SUV 1.9. CT neck and chest on 08/04/2017 showed no dominant mass or nodes in the neck, interstitial infiltrates RUL. Had CT chest and neck on 08/04/2018 showed right post radiation fibrosis, T12 compression fracture which she underwent vertebroplasty for treatment by Dr. Pang. Most recently, the patient experienced acute exacerbation of pain in her right jaw, causing her to suspect an additional acute injury to the area. She was evaluated by her dentist, Dr. Gonzáles, who confirmed the presence of a fractured right mandible, for which the patient has been referred to a specialist in [place], where it is anticipated that she is to undergo extraction of teeth and internal fixation of the fracture. The patient has recently undergone consultation with a specialist at [facility]. Oral surgery is planned, where it is anticipated that tooth will be extracted from the right mandible, and an open reduction and internal fixation of her right mandible fracture will be performed. Her surgery is tentatively scheduled for early June. She has completed HBO treatments that are prescribed prior to surgery and she is planning to have 10 additional treatments post surgery to improve healing. Given the delay in her timing of surgery it is recommended that she continue HBO treatments until her surgery on June 09, 2024. This would require an additional 20 HBO treatments prior to her surgery for her to benefit the most from HBO treatment in preparation for her surgery. She has been tolerating treatments well and has had decreased pain and some improved ability to open her mouth following the treatments that she has undergone. Progress of Wound: The patient presented today for her 24th hyperbaric oxygen therapy session. Treatment was administered for delayed radiation injury/osteonecrosis. Hyperbaric oxygen therapy was administered as per the facility protocol. Hyperbaric oxygen therapy was administered at 2 sukh at 100% oxygen for 90 minutes without air breaks. The patient tolerated hyperbaric oxygen therapy well, without complaints or complications. Upon emergence from the hyperbaric chamber, the patient's vital signs remained stable, and she was discharged in good condition. Objective Data Objective Data Vital Signs: Vital Signs Temp Pulse Resp BP 98.8 F 91 12 148/83 H 05/19/24 14:34 05/19/24 14:34 05/19/24 14:34 05/19/24 14:34 Weight: 140 lb Body Mass Index (BMI) 27.3 Exam Physical Exam Const alert, oriented x3, no apparent distress and well nourished General Appearance: cooperative and well developed HEENT normocephalic Head and Scalp: atraumatic Eyes EOMs intact bilaterally Neck supple and no JVD General: trachea midline Resp normal respiratory effort, no use of accessory muscles and clear to auscultation bilaterally Effort and Inspection: able to speak in complete sentences Psych affect normal Appearance: grossly normal and well kempt Speech: normal speech Charges/Coding Wound Center CF Procedures HBO Supervision: [id number] Hyperbaric Oxygen; supervision Assessment/Plan Assessment/Plan (1) Osteonecrosis of temporomandibular joint: CODE(S): M87.88 - Other osteonecrosis, other site (2) 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: CODE(S): L59.8 - Other specified disorders of the skin and subcutaneous tissue related to radiation; Y84.2 - Radiological procedure and radiotherapy as the cause of abnormal reaction of the patient, or of later complication, without mention of misadventure at the time of the procedure (3) Mandibular fracture: CODE(S): S02.609A - Fracture of mandible, unspecified, initial encounter for closed fracture QUALIFIERS: Encounter type: initial encounter Fracture type: closed Mandible location: body Laterality: right Qualified Code(s): S02.601A - Fracture of unspecified part of body of right mandible, initial encounter for closed fracture PLAN: Plan The patient is tolerating and benefiting from hyperbaric oxygen therapy, which will be continued per the patient's medical plan.
[2024-05-21 13:31] VITALS: BP 121/71; BP 130/74; PULSE 72; PULSE 82; RESP 13; RESP 14; TEMP 36.6; TEMP 37
--- NOTE | 2024-05-21 15:24 | HBO.PN.PCM_ITS ---
History of Present Illness Date of Service: 05/21/24 Chief Complaint: Hyperbaric Oxygen Treatment for Osteoradionecrosis/Delayed Radiation Injury History of Wound: Farideh is a pleasant 74 yo woman that presented to the wound healing center for consultation and evaluation for hyperbaric oxygen treatment for delayed radiation injury/osteoradionecrosis. She was referred for treatment by Dr. Gonzáles, her dentist who is planning to surgical extraction of 2 teeth on the right upper/lower jaw and in preparation of this procedure due to her previous radiation and evidence of soft tissue radionecrosis and osteoradionecrosis of her jaw on exam requests treatment with hyperbaric oxygen in order to prepare the tissue for surgical procedure and promote healing. She relays that she has limited movement of her jaw and xerostomia as well as right jaw pain since her radiation treatment as well as dental issues. Her radiation treatment was to her right neck and subclavian region. She was treated with 200 cGy over a total of 59 days to her right neck with a total dose of 7,000 cGy and 180 cGy to her right subclavian for a total dose of 4,500 cGy over a total of 34 days over the time period of 12/10/2016 to 02/07/2017. 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 She had direct laryngoscopy, right tonsillectomy, and fine needle aspiration of the right neck mass on 10/25/[address] Graves. 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 Cytology of the right neck mass also showed squamous cell carcinoma. PET CT scan on 11/20/2016 showed focal hypermetabolic activity in the right palatine tonsil and hypermetabolic activity in the right level II and level III nodes. She started combined chemotherapy and radiation therapy on 12/10/2016 with Cisplatin 40 mg/m2 weekly and finished the 7th cycle on 02/04/2017. Treatment was complicated by neutropenia and mucositis, which prevented the patient from eating. and she had temporary PEG tube for parenteral feeding during treatment. She has had PEG tube removed and is eating by mouth but has residual slight pain R jaw with decreased ability to open her mouth due to radiation injury. She had a PET/CT 05/05/2017 which showed no activity in the mouth/neck but slight activity in the R upper lobe SUV 1.9. CT neck and chest on 08/04/2017 showed no dominant mass or nodes in the neck, interstitial infiltrates RUL. Had CT chest and neck on 08/04/2018 showed right post radiation fibrosis, T12 compression fracture which she underwent vertebroplasty for treatment by Dr. Pang. Most recently, the patient experienced acute exacerbation of pain in her right jaw, causing her to suspect an additional acute injury to the area. She was evaluated by her dentist, Dr. Gonzáles, who confirmed the presence of a fractured right mandible, for which the patient has been referred to a specialist in [place], where it is anticipated that she is to undergo extraction of teeth and internal fixation of the fracture. The patient has recently undergone consultation with a specialist at [facility]. Oral surgery is planned, where it is anticipated that tooth will be extracted from the right mandible, and an open reduction and internal fixation of her right mandible fracture will be performed. Her surgery is tentatively scheduled for early June. She has completed HBO treatments that are prescribed prior to surgery and she is planning to have 10 additional treatments post surgery to improve healing. Given the delay in her timing of surgery it is recommended that she continue HBO treatments until her surgery on June 09, 2024. This would require an additional 20 HBO treatments prior to her surgery for her to benefit the most from HBO treatment in preparation for her surgery. She has been tolerating treatments well and has had decreased pain and some improved ability to open her mouth following the treatments that she has undergone. Progress of Wound: The patient presented today for her 25th hyperbaric oxygen therapy session. Treatment was administered for delayed radiation injury/osteonecrosis. She missed her dive yesterday because she was not feeling well. She states that she has been on Augmentin and she is having swelling of her lips. She denies issues with breathing. She states she stopped taking the antibiotic. Instructed her notify the prescriber about her issues she is having. She verbalized understanding. Hyperbaric oxygen therapy was administered as per the facility protocol. Hyperbaric oxygen therapy was administered at 2 sukh at 100% oxygen for 90 minutes without air breaks. The patient tolerated hyperbaric oxygen therapy well, without complaints or complications. Upon emergence from the hyperbaric chamber, the patient's vital signs remained stable, and she was discharged in good condition. Objective Data Objective Data Vital Signs: Vital Signs Temp Pulse Resp BP 98.6 F 82 13 130/74 H 05/21/24 13:31 05/21/24 13:31 05/21/24 13:31 05/21/24 13:31 Weight: 140 lb Body Mass Index (BMI) 27.3 Exam Physical Exam Const alert, oriented x3 and no apparent distress General Appearance: cooperative HEENT normocephalic HEENT Narrative: Bilateral TM with tympanostomy tubes in place. 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: CODE(S): L59.8 - Other specified disorders of the skin and subcutaneous tissue related to radiation; Y84.2 - Radiological procedure and radiotherapy as the cause of abnormal reaction of the patient, or of later complication, without mention of misadventure at the time of the procedure (3) Mandibular fracture: CODE(S): S02.609A - Fracture of mandible, unspecified, initial encounter for closed fracture QUALIFIERS: Encounter type: initial encounter Fracture type: closed Mandible location: body Laterality: right Qualified Code(s): S02.601A - Fracture of unspecified part of body of right mandible, initial encounter for closed fracture PLAN: Plan The patient is tolerating and benefiting from hyperbaric oxygen therapy, which will be continued per the patient's medical plan.
--- NOTE | 2024-05-24 13:19 | HBO.PN.PCM_ITS ---
History of Present Illness Date of Service: 05/24/24 Chief Complaint: Hyperbaric Oxygen Treatment for Osteoradionecrosis/Delayed Radiation Injury History of Wound: Farideh is a pleasant 74 yo woman that presented to the wound healing center for consultation and evaluation for hyperbaric oxygen treatment for delayed radiation injury/osteoradionecrosis. She was referred for treatment by Dr. Gonzáles, her dentist who is planning to surgical extraction of 2 teeth on the right upper/lower jaw and in preparation of this procedure due to her previous radiation and evidence of soft tissue radionecrosis and osteoradionecrosis of her jaw on exam requests treatment with hyperbaric oxygen in order to prepare the tissue for surgical procedure and promote healing. She relays that she has limited movement of her jaw and xerostomia as well as right jaw pain since her radiation treatment as well as dental issues. Her radiation treatment was to her right neck and subclavian region. She was treated with 200 cGy over a total of 59 days to her right neck with a total dose of 7,000 cGy and 180 cGy to her right subclavian for a total dose of 4,500 cGy over a total of 34 days over the time period of 12/10/2016 to 02/07/2017. 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 She had direct laryngoscopy, right tonsillectomy, and fine needle aspiration of the right neck mass on 10/25/[address] Graves. 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 Cytology of the right neck mass also showed squamous cell carcinoma. PET CT scan on 11/20/2016 showed focal hypermetabolic activity in the right palatine tonsil and hypermetabolic activity in the right level II and level III nodes. She started combined chemotherapy and radiation therapy on 12/10/2016 with Cisplatin 40 mg/m2 weekly and finished the 7th cycle on 02/04/2017. Treatment was complicated by neutropenia and mucositis, which prevented the patient from eating. and she had temporary PEG tube for parenteral feeding during treatment. She has had PEG tube removed and is eating by mouth but has residual slight pain R jaw with decreased ability to open her mouth due to radiation injury. She had a PET/CT 05/05/2017 which showed no activity in the mouth/neck but slight activity in the R upper lobe SUV 1.9. CT neck and chest on 08/04/2017 showed no dominant mass or nodes in the neck, interstitial infiltrates RUL. Had CT chest and neck on 08/04/2018 showed right post radiation fibrosis, T12 compression fracture which she underwent vertebroplasty for treatment by Dr. Pang. Most recently, the patient experienced acute exacerbation of pain in her right jaw, causing her to suspect an additional acute injury to the area. She was evaluated by her dentist, Dr. Gonzáles, who confirmed the presence of a fractured right mandible, for which the patient has been referred to a specialist in [place], where it is anticipated that she is to undergo extraction of teeth and internal fixation of the fracture. The patient has recently undergone consultation with a specialist at [facility]. Oral surgery is planned, where it is anticipated that tooth will be extracted from the right mandible, and an open reduction and internal fixation of her right mandible fracture will be performed. Her surgery is tentatively scheduled for early June. She has completed HBO treatments that are prescribed prior to surgery and she is planning to have 10 additional treatments post surgery to improve healing. Given the delay in her timing of surgery it is recommended that she continue HBO treatments until her surgery on June 09, 2024. This would require an additional 20 HBO treatments prior to her surgery for her to benefit the most from HBO treatment in preparation for her surgery. She has been tolerating treatments well and has had decreased pain and some improved ability to open her mouth following the treatments that she has undergone. Progress of Wound: The patient presented today for her 27th hyperbaric oxygen therapy session. Treatment was administered for delayed radiation injury/osteonecrosis. Hyperbaric oxygen therapy was administered as per the facility protocol. Hyperbaric oxygen therapy was administered at 2 sukh at 100% oxygen for 90 minutes without air breaks. The patient tolerated hyperbaric oxygen therapy well, without complaints or complications. Upon emergence from the hyperbaric chamber, the patient's vital signs remained stable, and she was discharged in good condition. Objective Data Objective Data Vital Signs: Vital Signs Temp Pulse Resp BP 98.6 F 82 13 130/74 H 05/21/24 13:31 05/21/24 13:31 05/21/24 13:31 05/21/24 13:31 Weight: 140 lb Body Mass Index (BMI) 27.3 Exam Physical Exam Const alert, oriented x3 and no apparent distress General Appearance: cooperative HEENT normocephalic HEENT Narrative: Bilateral TM with tympanostomy tubes in place. 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: CODE(S): L59.8 - Other specified disorders of the skin and subcutaneous tissue related to radiation; Y84.2 - Radiological procedure and radiotherapy as the cause of abnormal reaction of the patient, or of later complication, without mention of misadventure at the time of the procedure (3) Mandibular fracture: CODE(S): S02.609A - Fracture of mandible, unspecified, initial encounter for closed fracture QUALIFIERS: Encounter type: initial encounter Fracture type: closed Laterality: right Mandible location: body Qualified Code(s): S02.601A - Fracture of unspecified part of body of right mandible, initial encounter for closed fracture PLAN: Plan The patient is tolerating and benefiting from hyperbaric oxygen therapy, which will be continued per the patient's medical plan.
[2024-05-24 15:21] VITALS: BP 133/70; BP 143/75; PULSE 67; PULSE 92; RESP 16; TEMP 36.1; TEMP 36.6
[2024-05-25 15:23] VITALS: BP 122/62; BP 137/73; PULSE 68; RESP 16; TEMP 36.1
--- NOTE | 2024-05-25 17:07 | HBO.PN.PCM_ITS ---
History of Present Illness Date of Service: 05/24/24 Chief Complaint: Hyperbaric Oxygen Treatment for Osteoradionecrosis/Delayed Radiation Injury History of Wound: Farideh is a pleasant 74 yo woman that presented to the wound healing center for consultation and evaluation for hyperbaric oxygen treatment for delayed radiation injury/osteoradionecrosis. She was referred for treatment by Dr. Gonzáles, her dentist who is planning to surgical extraction of 2 teeth on the right upper/lower jaw and in preparation of this procedure due to her previous radiation and evidence of soft tissue radionecrosis and osteoradionecrosis of her jaw on exam requests treatment with hyperbaric oxygen in order to prepare the tissue for surgical procedure and promote healing. She relays that she has limited movement of her jaw and xerostomia as well as right jaw pain since her radiation treatment as well as dental issues. Her radiation treatment was to her right neck and subclavian region. She was treated with 200 cGy over a total of 59 days to her right neck with a total dose of 7,000 cGy and 180 cGy to her right subclavian for a total dose of 4,500 cGy over a total of 34 days over the time period of 12/10/2016 to 02/07/2017. 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 She had direct laryngoscopy, right tonsillectomy, and fine needle aspiration of the right neck mass on 10/25/[address] Graves. 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 Cytology of the right neck mass also showed squamous cell carcinoma. PET CT scan on 11/20/2016 showed focal hypermetabolic activity in the right palatine tonsil and hypermetabolic activity in the right level II and level III nodes. She started combined chemotherapy and radiation therapy on 12/10/2016 with Cisplatin 40 mg/m2 weekly and finished the 7th cycle on 02/04/2017. Treatment was complicated by neutropenia and mucositis, which prevented the patient from eating. and she had temporary PEG tube for parenteral feeding during treatment. She has had PEG tube removed and is eating by mouth but has residual slight pain R jaw with decreased ability to open her mouth due to radiation injury. She had a PET/CT 05/05/2017 which showed no activity in the mouth/neck but slight activity in the R upper lobe SUV 1.9. CT neck and chest on 08/04/2017 showed no dominant mass or nodes in the neck, interstitial infiltrates RUL. Had CT chest and neck on 08/04/2018 showed right post radiation fibrosis, T12 compression fracture which she underwent vertebroplasty for treatment by Dr. Pang. Most recently, the patient experienced acute exacerbation of pain in her right jaw, causing her to suspect an additional acute injury to the area. She was evaluated by her dentist, Dr. Gonzáles, who confirmed the presence of a fractured right mandible, for which the patient has been referred to a specialist in [place], where it is anticipated that she is to undergo extraction of teeth and internal fixation of the fracture. The patient has recently undergone consultation with a specialist at [facility]. Oral surgery is planned, where it is anticipated that tooth will be extracted from the right mandible, and an open reduction and internal fixation of her right mandible fracture will be performed. Her surgery is tentatively scheduled for early June. She has completed HBO treatments that are prescribed prior to surgery and she is planning to have 10 additional treatments post surgery to improve healing. Given the delay in her timing of surgery it is recommended that she continue HBO treatments until her surgery on June 09, 2024. This would require an additional 20 HBO treatments prior to her surgery for her to benefit the most from HBO treatment in preparation for her surgery. She has been tolerating treatments well and has had decreased pain and some improved ability to open her mouth following the treatments that she has undergone. Progress of Wound: The patient presented today for her 28th hyperbaric oxygen therapy session. Treatment was administered for delayed radiation injury/osteonecrosis. Hyperbaric oxygen therapy was administered as per the facility protocol. Hyperbaric oxygen therapy was administered at 2 sukh at 100% oxygen for 90 minutes without air breaks. The patient tolerated hyperbaric oxygen therapy well, without complaints or complications. Upon emergence from the hyperbaric chamber, the patient's vital signs remained stable, and she was discharged in good condition. Objective Data Objective Data Vital Signs: Vital Signs Temp Pulse Resp BP 97 F L 68 16 137/73 H 05/25/24 15:23 05/25/24 15:23 05/25/24 15:23 05/25/24 15:23 Weight: 140 lb Body Mass Index (BMI) 27.3 Exam Physical Exam Const alert, oriented x3, no apparent distress and well nourished General Appearance: cooperative and well developed HEENT normocephalic and moist oral mucous membranes Head and Scalp: atraumatic Eyes EOMs intact bilaterally Neck no JVD General: trachea midline Resp normal respiratory effort, no use of accessory muscles and clear to auscultation bilaterally Effort and Inspection: able to speak in complete sentences Psych affect normal Speech: normal speech Nursing Assessment and Debridement Post-Debridement Measurements and Additional Note: Post-Debridement Measurements/Treatment WC - Nurse 3 - General Ulcer D/C NN Start: 05/11/24 15:20 Freq: Status: Active Protocol: Activity Type Activity Date Activity User E-sign Co-sign Detail Recorded Client Recorded Date Recorded By Document 05/24/24 15:21 [id number] 05/24/24 15:23 Document 05/25/24 15:23 0000 05/25/24 15:29 05/24/24 05/25/24 15:21 15:23 Pain Scale: 0-10 Numeric Is Patient Pain Free? 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: CODE(S): L59.8 - Other specified disorders of the skin and subcutaneous tissue related to radiation; Y84.2 - Radiological procedure and radiotherapy as the cause of abnormal reaction of the patient, or of later complication, without mention of misadventure at the time of the procedure (3) Mandibular fracture: CODE(S): S02.609A - Fracture of mandible, unspecified, initial encounter for closed fracture QUALIFIERS: Encounter type: subsequent encounter Fracture type: closed Mandible location: body Laterality: right PLAN: Plan The patient is tolerating and benefiting from hyperbaric oxygen therapy, which will be continued per the patient's medical plan.
--- NOTE | 2024-05-31 08:50 | WC ---
Patient called in this morning and stated she didn't want to continue HBO tx until possibly after her surgery and the drain is removed. was informed of this decision.
== END 2024-06-02 23:59 | disposition home or self-care (01) ==
LOC: WC 13:00
PROVIDERS: PCP Family Medicine; Referring Provider Family Medicine; Visit Provider Family Medicine
DX: M87.88 Other osteonecrosis, other site (principal); S02.601A Fracture of unspecified part of body of right mandible, initial encounter for closed fracture; Y84.2 Radiological procedure and radiotherapy as the cause of abnormal reaction of the patient, or of later complication, without mention of misadventure at the time of the procedure; L59.8 Other specified disorders of the skin and subcutaneous tissue related to radiation; K11.7 Disturbances of salivary secretion; Z92.3 Personal history of irradiation; Z79.899 Other long term (current) drug therapy; Z92.21 Personal history of antineoplastic chemotherapy; Z85.819 Personal history of malignant neoplasm of unspecified site of lip, oral cavity, and pharynx
CPT/HCPCS: 99183; G0277

== ENCOUNTER → 2024-08-30 | Outpatient (CLI) | payer MEDICARE, SELFPAY ==
--- NOTE | 2024-08-30 11:21 | RAD_ITS ---
STUDY: X-RAY - LEFT CLAVICLE REASON FOR EXAM: Female, 74 years old. SWELLING TECHNIQUE: 2 views of the left clavicle. COMPARISON: None. FINDINGS: Normal clavicle. There is mild hypertrophic acromioclavicular arthrosis. Normal visualized sternoclavicular articulation. There is no demonstrated acute fracture. Normal visualized pulmonary apex. RAD/Clavicle IMPRESSION: Mild hypertrophic acromioclavicular arthrosis. Electronically Signed: Ankit Tony MD at 14:00 EDT ,
--- NOTE | 2024-08-30 11:23 | RAD_ITS ---
STUDY: X-RAY - RIGHT CLAVICLE REASON FOR EXAM: Female, 74 years old. SWELLING TECHNIQUE: 2 views of the right clavicle. COMPARISON: None. FINDINGS: Normal clavicle. There is mild hypertrophic acromioclavicular arthrosis. Normal visualized sternoclavicular articulation. There is no demonstrated acute fracture. Normal visualized pulmonary apex. RAD/Clavicle IMPRESSION: Mild hypertrophic acromioclavicular arthrosis. Electronically Signed: Ankit Tony MD at 13:59 EDT ,
--- NOTE | 2024-08-30 11:27 | RAD_ITS ---
EXAM: XR THORACIC SPINE, 2 VIEWS CLINICAL INDICATION: PAIN LOW BACK TECHNIQUE: Frontal and lateral views of the thoracic spine. COMPARISON: No relevant prior studies available. FINDINGS: VERTEBRAE: Mild dextroscoliosis. Old compression fracture T12 with vertebroplasty. No spondylolisthesis. No significant facet arthropathy.SPACES: Unremarkable. Disc spaces are maintained. OTHER FINDINGS: The bones are diffusely osteopenic. Incidental pneumobilia. RAD/Thoracic Spine 2 Views IMPRESSION: 1. No acute thoracic spine abnormality identified. 2. Mild dextroscoliosis. 3. The bones are diffusely osteopenic. 4. Incidental pneumobilia. 5. Old compression fracture T12 with vertebroplasty. Electronically Signed: Pierce North MD at 23:59 EDT ,
--- NOTE | 2024-08-30 11:27 | RAD_ITS ---
STUDY: X-RAY - LUMBAR SPINE REASON FOR EXAM: Female, 74 years old. PAIN LOW BACK TECHNIQUE: 2 view(s) of the lumbar spine were obtained. COMPARISON: Lumbar spine radiograph June 22, 2021 FINDINGS: Normal lumbar lordosis. Moderate levoconvex scoliosis thoracolumbar spine. Compression fracture and Vertebroplasty T12. Bilateral total hip arthroplasties. Retrolisthesis L2-3. Anterior subluxation L4-5. Diffuse demineralization. Arthrosis of the facets. Normal vertebral bodies and endplates. Disc space narrowing L1-2. The soft tissue structures are unremarkable. RAD/Lumbar Spine 2 or 3 Views IMPRESSION: No change in vertebral plasty and compression fracture T12. Moderate levoconvex scoliosis. No acute disease. Electronically Signed: Jeffy Carney MD at 17:10 EDT ,
== END | disposition home or self-care (01) ==
PROVIDERS: PCP Family Medicine; Referring Provider Family Medicine; Visit Provider Family Medicine
DX: M54.50 Low back pain, unspecified (principal); Z78.0 Asymptomatic menopausal state
CPT/HCPCS: 72070; 72100; 73000

== ENCOUNTER → 2025-06-23 | Outpatient (CLI) | payer MEDICARE, SELFPAY ==
--- NOTE | 2025-06-23 15:50 | BD_ITS ---
PROCEDURE: DEXA BONE DENSITY/APPEND SKEL N/A REASON FOR EXAM: F, age 75 y/o . Postmenopausal. TECHNIQUE: DEXA BONE DENSITY/APPEND SKEL COMPARISON: None FINDINGS: BMD and T-SCORES Lumbar spine: 0.815 g/cm2, T-score -2.1 Levels: L1 through L4 Left 1/3 radius: 0.405 g/cm2, T-score -3.2 The World Health Organization has defined the following categories based on bone density: Normal bone density: T-score equal to or greater than -1.0 Osteopenia: T-score between -1.0 and -2.5 Osteoporosis: T-score equal to or less than -2.5 The patient does meet the pharmacological treatment recommendations for prevention of osteoporosis. BD/Dexa Bone Density Study IMPRESSION: OSTEOPOROSIS. Recommend follow-up as clinically warranted. Reading Location: [id number]
== END | disposition home or self-care (01) ==
LOC: OPBD 15:42
PROVIDERS: PCP Family Medicine; Referring Provider Family Medicine; Visit Provider Family Medicine
DX: Z78.0 Asymptomatic menopausal state (principal)
CPT/HCPCS: 77080

== ENCOUNTER → 2025-06-28 | Outpatient (CLI) | payer MEDICARE, SELFPAY ==
--- NOTE | 2025-06-28 16:56 | CT_ITS ---
PROCEDURE: CT CHEST WITH CONTRAST 06/28/2025 REASON FOR EXAM: RIGHT ANTERIOR NECK MASS; H/O H/N CA TECHNIQUE: CT CHEST WITH CONTRAST Coronal and Sagittal reconstruction series were provided. CONTRAST: Isovue 300 VOLUME: 97 mL One or more dose reduction techniques were used (e.g., Automated exposure control, adjustment of the mA and/or kV according to patient size, use of iterative reconstruction technique). RADIATION DOSE SUMMARY: DLP: 583.18 mGycm COMPARISON: CT chest 08/26/2019. FINDINGS: LUNGS/PLEURA: Clear. No airspace consolidation or findings of pulmonary edema. No pneumothorax or pleural effusions. Central airways are patent. No suspicious focal nodules. MEDIASTINUM: Unremarkable. No mass or lymphadenopathy. HEART: Normal in size. No pericardial effusion. Mild coronary artery calcifications. THORACIC AORTA: Normal in course and caliber. Mild atherosclerotic calcifications. UPPER ABDOMEN: Status post cholecystectomy. Small hiatal hernia with prior surgical repair. BONES: Age-indeterminate compression fracture involving the superior endplate of T8, with no significant retropulsion. Chronic superior endplate compression fracture deformity of T12 with kyphoplasty bone cement in place. Unchanged mild retropulsion at the posterior superior vertebral body at this level. Mild multilevel degenerative changes of the spine. Qualitative osteopenia. CT/Chest WITH Contrast IMPRESSION: 1. No acute cardiopulmonary disease. 2. No evidence for intrathoracic malignancy/metastatic disease. 3. Age-indeterminate superior endplate compression fracture of T8, without retr opulsion. Stable chronic T12 compression fracture with kyphoplasty bone cement, and mild retropulsion. 4. Small hiatal hernia, with evidence of prior surgical repair. Reading Location: [id number]
--- NOTE | 2025-06-28 16:56 | CT_ITS ---
PROCEDURE: CT SOFT TISSUE NECK WITH CONTRAST 06/28/2025 REASON FOR EXAM: RIGHT ANTERIOR NECK MASS; H/O H/N CA TECHNIQUE: CT SOFT TISSUE NECK WITH IV CONTRAST. Multiplanar 2D reconstructions were performed. One or more dose reduction techniques were used (e.g., Automated exposure control, adjustment of the mA and/or kV according to patient size, use of iterative reconstruction technique). RADIATION DOSE SUMMARY: DLP: 583.18 mGycm COMPARISON: CT neck exams dated 05/21/2024, 08/26/2019. FINDINGS: Patient has reported history of tonsillar carcinoma status post tonsillectomy and radiation therapy. Likely prior history of radiation necrosis with postoperative changes of partial right mandibular resection with metallic plate and screw reconstruction. Hardware appears intact without complication. No neck mass or cervical lymphadenopathy. Postoperative and/or treatment related scarring along the anterior right neck soft tissues, with atrophy versus resection of the right parotid and submandibular CT/Soft Tissue Neck WITH Contrast IMPRESSION: Chronic postoperative and treatment related changes to the right mandible and n jayla, as described. No acute abnormality or evidence for recurrent cervical malignancy. Reading Location: [id number]
== END | disposition home or self-care (01) ==
LOC: CT 16:54
PROVIDERS: PCP Family Medicine; Referring Provider Nurse Practitioner Family; Visit Provider Nurse Practitioner Family
DX: M79.89 Other specified soft tissue disorders (principal); C10.9 Malignant neoplasm of oropharynx, unspecified
CPT/HCPCS: 70491; 71260; Q9967

== ENCOUNTER → 2025-07-08 | Outpatient (CLI) | payer MEDICARE, SELFPAY ==
--- NOTE | 2025-07-08 15:15 | BI_ITS ---
EXAM: SCRN MAMM (CAD)W/WILIAM BILAT DATE: 07/08/2025 CLINICAL HISTORY: F, Age 75 y/o , SCREENING TECHNIQUE: Procedure Code: [id number] Modality: MG Procedure: SCRN MAMM (CAD)W/WILIAM BILAT COMPARISON: Prior exam(s) dated 05/07/2024 and 05/05/2023. FINDINGS: TISSUE DENSITY: The breasts are heterogeneously dense, which may obscure small masses. Bilateral Breast Mammographic Findings: There are no suspicious masses, suspicious cluster of microcalcifications, architectural distortion or secondary signs of malignancy identified in either breast. There has been no significant change since the prior study. Benign vascular calcifications are seen in both breast. A radiopaque clip is seen in the superior outer aspect of the right breast. The biopsy was benign. Post biopsy site is stable. There is a stable benign-appearing mass seen adjacent to the clip. A benign macrocalcification is seen in the right breast. BI/SCRN MAMM (CAD)W/WILIAM BILAT IMPRESSION: Benign screening mammogram. OVERALL FINAL ASSESSMENT BI-RADS 2: BENIGN RECOMMENDATION: Routine annual follow-up in 1 Year A letter with findings and recommendations will be mailed to the patient. Reading Location: [id number]
== END | disposition home or self-care (01) ==
LOC: OPBI 14:51
PROVIDERS: PCP Family Medicine; Referring Provider Nurse Practitioner Family; Visit Provider Nurse Practitioner Family
DX: Z12.31 Encounter for screening mammogram for malignant neoplasm of breast (principal)
CPT/HCPCS: 77063; 77067

== ENCOUNTER → 2025-07-11 | Outpatient (CLI) | payer MEDICARE, SELFPAY ==
--- NOTE | 2025-07-11 10:03 | NM_ITS ---
PROCEDURE: BONE SCAN WHOLE BODY 07/11/2025 REASON FOR EXAM: HX OF OROPHARYNX CA/ABNORMAL CAT SCAN TECHNIQUE: Procedure Code: NMBO Modality: NM Procedure: BONE SCAN WHOLE BODY Delayed anterior and posterior whole-body bone scan as well as right and left lateral head and neck views after radiopharmaceutical administration. RADIOPHARMACEUTICAL: 29 mCi Technetium-99m MDP IV COMPARISON: Whole-body bone scan 09/09/[address] of 06/28/2025. FINDINGS: Delayed: Asymmetric degenerative changes of the right 1st carpal-metacarpal joint. Asymmetric degenerative changes of the right sternoclavicular joint; this is somewhat less prominent than on the prior study of 2019, however. Prior partial right mandibular replacement is noted. Degenerative changes are seen of the cervical spine. Reverse S shaped thoracolumbar scoliosis has progressed somewhat since 2019. Associated degenerative changes are seen of the mid to lower thoracic spine and lumbar spine. No findings are specific to recent fractures, however. No findings are seen to suggest the presence of osseous metastatic disease. NM/Bone Scan Whole Body IMPRESSION: Degenerative changes and scoliosis, but no specific findings for recent fractur e noted. No findings are seen to suggest the presence of osseous metastatic disease. Reading Location: [place] [id number]
== END | disposition home or self-care (01) ==
LOC: NM 09:58
PROVIDERS: PCP Family Medicine; Referring Provider Internal Medicine Medical Oncology; Visit Provider Internal Medicine Medical Oncology
DX: M79.89 Other specified soft tissue disorders (principal); Z85.819 Personal history of malignant neoplasm of unspecified site of lip, oral cavity, and pharynx
CPT/HCPCS: 78306; A9503